=== PATIENT | female | born 1940 | race Caucasian/White ===

== ENCOUNTER 2017-03-15 17:54 | Inpatient (IN) ==
--- NOTE | 2017-03-15 18:36 | Emergency Department Note ---
START Narrative - START START: Patient was sent here with pleural effusions, dyspnea and I did order labs as well as a contrast CT of the chest to further evaluate for possibility of infection or mass. Care will be assumed by the physician who is relieving me in about 20 minutes 1000
[2017-03-15 18:52] LABS: Basophils # 0.1 K/mcL (0.0-0.2); Basophils % 0.4 %; Eosinophils # 0.2 K/mcL (0.0-0.6); Eosinophils % 1.3 %; Hemoglobin 11.8 g/dL (11.5-15.4); Immature Granulocytes % 0.8 % (0-4); Lymphocytes # 3.1 K/mcL (0.6-4.6); Lymphocytes % 20.8 %; Mean Corpuscular HGB Conc 30.3 g/dL (31.6-35.5); Mean Corpuscular Hemoglobin 26.8 pg (28.0-33.3); Mean Corpuscular Volume 88.6 fL (83.0-100.0); Mean Platelet Volume 9.2 fL (9.4-12.4); Monocytes # 1.4 K/mcL (0.0-1.3); Neutrophils # 10.3 K/mcL (1.6-8.9); Platelet Count 258 K/mcL (140-400); Red Cell Distribution Width 15.9 % (11.5-14.5); Segmented Neutrophils % 67.7 %
[2017-03-15 19:10] LABS: BUN/Creatinine Ratio 16 (6-26); Blood Urea Nitrogen 12 mg/dL (7-20); Calcium 9.8 mg/dL (8.6-10.8); Carbon Dioxide 30 mEq/L (19-29); Chloride 100 mEq/L (98-109); Glucose 92 mg/dL (70-99); Osmolality,Calculated 283 (280-300); Potassium 4.3 mEq/L (3.5-4.5); Sodium 137 mEq/L (136-145); eGFR For African Americans > 60 (> 60); eGFR For Non-African Americans > 60 (> 60)
--- NOTE | 2017-03-15 19:27 | Emergency Department Note ---
Disposition Clinical Impression: Tobacco use, Pleural effusion Dyspnea Qualifiers: Dyspnea type: unspecified Qualified Code(s): R06.00 - Dyspnea, unspecified Disposition: Admitted As Inpatient Condition: Fair Time of Disposition: 21:50 General Adult HPI - General Chief complaint: ED Shortness of Breath/Dyspnea Stated complaint: fluid on my lungs Time Seen by Provider: 03/15/17 18:33 Source: patient Mode of arrival: ambulatory Limitations: no limitations Nursing Notes Reviewed: Yes Vital Signs Reviewed: Yes - History of Present Illness HPI Narrative: 77 year old female history of hypertension, diabetes, tobacco use in the past presents for evaluation of abnormal chest x-ray. Patient had outpatient chest x -ray which showed a left-sided pleural effusion. Patient was told to come to the ER for further evaluation. Patient's symptoms which prompted the x-ray was shortness of breath for the past 2-3 weeks. With a nonproductive cough. No fevers. No chest pain. Patient states that she was recently diagnosed with [place] spotted fever within the last month and completed 20 days worth of doxycycline. Patient was not able to accurately describe how she was diagnosed or what symptoms she was having. Patient denies having a history of heart attacks. Does report it remote history of smoking and quit smoking in 2008. Patient is not oxygen dependent at home. However the patient is requiring some oxygen supplementation in the emergency department. Patient denies history of lung cancer. Denies any nausea or vomiting. Denies any abdominal pain. Denies history of congestive heart failure however the patient does state that she takes Lasix. Pain Scale: 0 - Related Data Home Medications Medication Instructions Recorded Confirmed Allopurinol [Zyloprim] 300 mg PO BID 03/15/17 03/15/17 Aspirin Enteric Coated [Aspirin EC] 81 mg PO DAILY 03/15/17 03/15/17 Cod Liver Oil 1 each PO DAILY 03/15/17 03/15/17 Furosemide [Lasix] 20 mg PO DAILY 03/15/17 03/15/17 Gabapentin [Neurontin] 600 mg PO TID 03/15/17 03/15/17 Garlic 1,000 mg PO DAILY 03/15/17 03/15/17 L. Acidophilus/Pectin, [place] 1 each PO BID 03/15/17 03/15/17 [Acidophilus Probiotic Capsule] Levothyroxine [Synthroid] 88 mcg PO 0630 03/15/17 03/15/17 Lisinopril [Zestril] 10 mg PO DAILY 03/15/17 03/15/17 Meloxicam [Mobic] 15 mg PO DAILY 03/15/17 03/15/17 Montelukast [Singulair] 10 mg PO DAILY 03/15/17 03/15/17 Tizanidine HCl 4 mg PO BID PRN 03/15/17 03/15/17 Allergies Allergy/AdvReac Type Severity Reaction Status Date / Time metformin Allergy Hives Verified 03/15/17 18:02 Penicillins [PCN] Allergy Anaphylaxis Verified 03/15/17 18:02 All systems ED: reviewed and negative except as stated. Constitutional: Reports: as per HPI. Denies: fever Eyes: Reports: as per HPI ENT ED: Reports: as per HPI Cardiovascular: Reports: as per HPI. Denies: chest pain Respiratory: Reports: as per HPI, cough, dyspnea. Denies: sputum production Gastrointestinal: Reports: as per HPI. Denies: abdominal pain, nausea, vomiting Genitourinary: Reports: as per HPI Musculoskeletal: Reports: as per HPI Integumentary: Reports: as per HPI Neurological: Reports: as per HPI Psychiatric: Reports: as per HPI Endocrine: Reports: as per HPI Hematological/Lymphatic: Reports: as per HPI Allergic/Immunologic: Reports: as per HPI Past Medical History - Past Medical History Medical history: Reports: diabetes, hypertension Psychiatric history: Reports: no psych history - Social History Smoking Status: Former smoker Alcohol use: Reports: none Drug use: Reports: none Physical Exam - General Limitations: no limitations General appearance: alert, in no apparent distress - Head Head exam: atraumatic, normal inspection - Eye Eye exam: Present: normal appearance, EOMI - ENT ENT exam: normal exam, mucous membranes moist - Neck Neck exam: Present: normal inspection, full ROM, trachea midline - Chest Chest inspection: Present: normal inspection, symmetric chest wall rise - Respiratory Respiratory exam: Present: other (Decreased left-sided lung sounds). Absent: respiratory distress - Cardiovascular Cardiovascular exam: Present: regular rate, normal rhythm, normal heart sounds - Abdominal Exam Abdominal exam: Present: soft, Non-Tender. Absent: tenderness, distention, guarding, rebound, rigidity - Extremities Exam Extremities exam: Present: normal inspection. Absent: pedal edema - Back Exam Back exam: Present: normal inspection. Absent: CVA tenderness (R), CVA tenderness (L) - Neurological Exam Neurological exam: Present: alert, oriented X3 - Skin Skin exam: Present: warm, dry, intact, normal color Course Course Narrative: Patient seen and examined. Patient workup was initiated by the primary provider. Patient had labs as well as EKG and I CT of the chest with contrast. Workup was discussed with the patient at bedside. Concerns of possible malignancy causing her effusion. This was discussed with her at bedside. - Reevaluation(s) Reevaluation #1: Patient seen and examined. Patient in no acute distress. Patient's resting comfortably. Updated plan of care. All questions were answered. Time: 21:49 Vital Signs Temperature 98.1 F 03/15/17 17:59 Pulse Rate 95 03/15/17 17:59 Respiratory Rate 16 03/15/17 17:59 Blood Pressure 148/69 03/15/17 17:59 O2 Sat by Pulse Oximetry 93 03/15/17 17:59 Temperature 98.1 F 03/15/17 17:59 Pulse Rate 93 03/15/17 20:51 Respiratory Rate 18 03/15/17 21:35 Blood Pressure 162/80 03/15/17 21:35 O2 Sat by Pulse Oximetry 91 03/15/17 20:51 Oxygen Delivery Oxygen Delivery Nasal Cannula Medical Decision Making - [facility] Narrative Medical decision making narrative: 77 yo female presents for evaluation after abnormal chest x-ray. Patient's symptoms were shortness of breath cough for the past 2-3 weeks. Patient had chest x-ray which showed new left-sided pleural effusion. Patient does not have oxygen at home and is requiring some oxygen supplementation in the emergency department. Patient has a history of tobacco use in the past. Patient does not have history of lung cancer. Patient will EKG as well as laboratory evaluation reviewed. Patient's EKG shows no acute changes. Negative troponin. Patient's BNP is also negative. Patient will likely need an echo as well as thoracentesis possible pulmonary consult for bronchoscopy. Explains the concerns of possible lung malignancy. Patient is reviewed does show she has not had any recent echo or evaluation. Patient is agreeable with hospitalization inpatient evaluation. Patient does have leukocytosis but antibiotics were not started as there is more concerns for possible mucous plug or possible endobronchial lesion and the patient also recently completed a 20 day course of doxycycline. - Lab Data Lab results reviewed: Yes I reviewed the patient's lab results. Result diagrams: 03/15/17 18:43 03/15/17 18:43 Lab Results 03/15/17 03/15/17 03/15/17 Range/Units 18:43 18:43 18:43 WBC 15.1 H (4.3-11.1) K/mcL RBC 4.40 (3.82-4.97) M/mcL Hgb 11.8 (11.5-15.4) g/dL Hct 39.0 (35.3-44.9) % MCV 88.6 (83.0-100.0) fL MCH 26.8 L (28.0-33.3) pg MCHC 30.3 L (31.6-35.5) g/dL RDW 15.9 H (11.5-14.5) % Plt Count 258 (140-400) K/mcL MPV 9.2 L (9.4-12.4) fL Immature Gran % 0.8 (0-4) % Seg Neutrophils % 67.7 % Lymphocytes % 20.8 % Monocytes % 9.0 % Eosinophils % 1.3 % Basophils % 0.4 % Neutrophils # 10.3 H (1.6-8.9) K/mcL Lymphocytes # 3.1 (0.6-4.6) K/mcL Monocytes # 1.4 H (0.0-1.3) K/mcL Eosinophils # 0.2 (0.0-0.6) K/mcL Basophils # 0.1 (0.0-0.2) K/mcL Sodium 137 (136-145) mEq/L Potassium 4.3 (3.5-4.5) mEq/L Chloride 100 (98-109) mEq/L Carbon Dioxide 30 H (19-29) mEq/L BUN 12 (7-20) mg/dL Creatinine 0.76 (0.57-1.11) mg/dL Est GFR ( Amer) > 60 (> 60) Est GFR (Non-Af Amer) > 60 (> 60) BUN/Creatinine Ratio 16 (6-26) Glucose 92 (70-99) mg/dL Calculated Osmolality 283 (280-300) Lactic Acid 1.0 (0.5-2.2) mmol/L Calcium 9.8 (8.6-10.8) mg/dL Troponin I (0-0.03) ng/mL B-Natriuretic Peptide (0-100) pg/mL 03/15/17 03/15/17 Range/Units 18:43 18:43 WBC (4.3-11.1) K/mcL RBC (3.82-4.97) M/mcL Hgb (11.5-15.4) g/dL Hct (35.3-44.9) % MCV (83.0-100.0) fL MCH (28.0-33.3) pg MCHC (31.6-35.5) g/dL RDW (11.5-14.5) % Plt Count (140-400) K/mcL MPV (9.4-12.4) fL Immature Gran % (0-4) % Seg Neutrophils % % Lymphocytes % % Monocytes % % Eosinophils % % Basophils % % Neutrophils # (1.6-8.9) K/mcL Lymphocytes # (0.6-4.6) K/mcL Monocytes # (0.0-1.3) K/mcL Eosinophils # (0.0-0.6) K/mcL Basophils # (0.0-0.2) K/mcL Sodium (136-145) mEq/L Potassium (3.5-4.5) mEq/L Chloride (98-109) mEq/L Carbon Dioxide (19-29) mEq/L BUN (7-20) mg/dL Creatinine (0.57-1.11) mg/dL Est GFR ( Amer) (> 60) Est GFR (Non-Af Amer) (> 60) BUN/Creatinine Ratio (6-26) Glucose (70-99) mg/dL Calculated Osmolality (280-300) Lactic Acid (0.5-2.2) mmol/L Calcium (8.6-10.8) mg/dL Troponin I 0.00 (0-0.03) ng/mL B-Natriuretic Peptide 41 (0-100) pg/mL - Radiology Data Radiology results reviewed: Yes I reviewed the patient's radiology results. Chest CT 03/15/17 18:34 IMPRESSION: 1. An abrupt cut off of the left upper lobe bronchus with soft tissue attenuation, which may be secondary to mucous plugging or a bronchial mass. 2. Large loculated left pleural effusion with near complete consolidation of the left upper lobe which demonstrates multiple foci of internal low attenuation, including a 4.7 x 4.1 cm internal focus of rounded low attenuation, possibly a pulmonary abscess. The left upper lobe consolidation could represent pneumonia or possibly pulmonary malignancy. 3. Partial consolidation of the left lower lobe, most likely passive atelectasis, though underlying pneumonia or aspiration are also diagnostic considerations. 4. Mild subcarinal lymphadenopathy. RECOMMENDATIONS: Given the constellation of findings, suggest formal pulmonary consultation, and consider bronchoscopy and biopsy to further evaluate the left upper lobe opacity, and to exclude an underlying obstructing mass and/or pulmonary malignancy. D/ / 03/15/2017 20:05:26 Basilio Nicholas MD / efe Interpreting Provider: Basilio Nicholas MD - EKG Data EKG #1 EKG attestation: Yes I reviewed and interpreted this EKG. EKG shows normal: sinus rhythm Rate: normal Rhythm: NSR Hammond/QRS: normal T wave inversions noted in: I, aVL, v5 (Flattened), v6 (flattened) Interpretation: no acute changes, nonspecific ST-T wave changes S.B.A.R. - S.B.A.R. Situation: Demographics Background: Presenting Complaint Assessment: Vital Signs, Course and respsone to treatment Recommendation: Recommendation based on pending studies, treatments, or consults S.B.A.R. Report Given to: Dr. Stafford [email or web address] Repor Time: 21:04 Attestation Statement - Attestation Attestation: I, Timbo Melendrez MD, personally evaluated this patient and discussed their management with the resident physician. I reviewed the resident's note and agree with the documented findings, medical decision making, and plan of care. 77-year-old female presents with a complaint of some increasing shortness of breath for the past 2-3 weeks or longer. She has seen her primary care doctor a few times for this. She was seen yesterday and had a chest x-ray ordered. She had the x-ray done today which showed a large left pleural effusion. She was advised to come here for evaluation and admission. She was a smoker in the past but stopped about 8 years ago. She denies any history of COPD or asthma. No chest pain. She states that over the past several weeks she has noticed she feels a little more short of breath and usually when she takes a deep breath it makes her cough. On examination patient is a well-developed obese elderly female in no acute distress. She is alert and oriented 3. There is no cyanosis or diaphoresis. Chest is nontender to palpation. Breath sounds are slightly decreased on the left with some left anterior upper lobe rales. No wheezes noted. Heart regular rate and rhythm. Abdomen soft and nontender with normal bowel sounds. Labs reviewed. CT of the chest obtained. The hospitalist, Dr. Stafford, was consulted and accepted admission of the patient.
--- NOTE | 2017-03-15 23:15 | Internal Med History&Physical ---
Date of Encounter: 03/16/17 Time of Encounter: 23:00 Assessment and Plan (1) Loculated pleural effusion Current visit: Yes Status: Acute Shortness of breath - secondary to : Large loculated left pleural effusion with near complete consolidation of left upper lobe with possible pulmonary abscess, with probable mucous plugging or endobronchial mass in the left upper lobe. Partial consolidation of left lower lobe most likely passive atelectasis (seen on CT Chest w/ contrast) Continue empiric IV Levaquin, IV vancomycin - patient is allergic to penicillin O2 via nasal cannula, DuoNeb breathing treatment, IV Lasix, Tylenol PRN Sputum cultures - pending Pulmonology consult - pending Patient will need a bronchoscopy Echocardiogram - pending Troponin - negative BN peptide - 41 EKG - normal sinus rhythm with no acute ST-T changes Chest x-ray - large left-sided pleural effusion with vascular congestion Strict I's and O's, daily weight Continuous pulse ox, cardiac telemetry Labs in a.m. 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 Thomas is a 77 year old female with PMH of HTN, DM and hypothyroidism. Patient presents to the ED with complaints of shortness of breath. On examination patient is awake and alert. Not in any distress. Able to provide history. No family members at bedside. She states her shortness of breath started about 2-3 weeks ago. Symptoms have gradually worsened. She states she was diagnosed with [place] spotted fever about 1 month ago and has been on doxycycline for almost 20 days, and she finished her course yesterday. Patient does not have any history of coronary artery disease. No history of CHF. Patient states she also has associated cough which is nonproductive. No aggravating or alleviating factors. Symptoms are mild to moderate. No other associated symptoms. Denies chest pain, denies palpitations , denies headache or dizziness. Denies fever or abdominal pain or vomiting or diarrhea. No history of COPD or asthma and she is not oxygen dependent at home. Patient followed up with her primary care physician yesterday for a routine visit. Chest x-ray and labs were done. She was advised by her primary care physician to go to the ED in view of left-sided pleural effusion. Initial evaluation today in the ED revealed elevated white count. CT of the chest with contrast reveals a large loculated left pleural effusion with complete consolidation of the left upper lobe with a possible pulmonary abscess. Consolidation could represent pneumonia or possible pulmonary malignancy. There is also a partial consolidation of left lower lobe likely passive atelectasis. There is probably a mucous plug or bronchial mass and left upper lobe. Patient is being admitted for shortness of breath due to loculated pleural effusion. Pulmonology consult is pending. Patient will be continued on home medications. She has been explained about her condition and plan of care. Understood and agreed. No unanswered questions. CODE STATUS full code. Past Med Surg Social Fam HX - Past Medical History Medical history: diabetes, hypertension Psychiatric history: no psych history - Past Surgical History Surgical History: cholecystectomy, hysterectomy - Social History Smoking Status: Former smoker Smokeless Tobacco Status: No Alcohol use: none Drug use: marijuana - Family History Mother Living Status: Hx Family Cancer: Yes (Breast cancer) Father Living Status: Hx Family Cardiac Disorders: Yes Hx Family Cancer: Yes (Prostate cancer) Brother Living Status: Still Living Hx Family Cancer: Yes (skin, bone) Internal Medicine - H&P: Meds Allopurinol [Zyloprim] 300 mg PO BID 03/15/17 [History] Aspirin Enteric Coated [Aspirin EC] 81 mg PO DAILY 03/15/17 [History] Cod Liver Oil 1 each PO DAILY 03/15/17 [History] Furosemide [Lasix] 20 mg PO DAILY 03/15/17 [History] Gabapentin [Neurontin] 600 mg PO TID 03/15/17 [History] Garlic 1,000 mg PO DAILY 03/15/17 [History] L. Acidophilus/Pectin, [place] [Acidophilus Probiotic Capsule] 1 each PO BID [History] Levothyroxine [Synthroid] 88 mcg PO 0630 03/15/17 [History] Lisinopril [Zestril] 10 mg PO DAILY 03/15/17 [History] Meloxicam [Mobic] 15 mg PO DAILY 03/15/17 [History] Montelukast [Singulair] 10 mg PO DAILY 03/15/17 [History] Tizanidine HCl 4 mg PO BID PRN 03/15/17 [History] Allergies metformin Allergy (Verified 03/15/17 18:02) Hives Penicillins [PCN] Allergy (Verified 03/15/17 18:02) Anaphylaxis All Systems PM: A 10-system review of systems was performed and is negative for pertinent findings except as documented above in the HPI. - Constitutional Constitutional: fatigue, weakness, no fever(s) - EENT Eyes: no blurry vision - Cardiovascular Cardiovascular ROS IM: dyspnea, dyspnea on exertion, edema, orthopnea, no chest pain, no lightheadedness, no syncope - Respiratory Respiratory: cough, dyspnea, dyspnea on exertion, chest congestion, no wheezing - Gastrointestinal Gastrointestinal: no abdominal pain, no bloating, no diarrhea, no hematochezia, no melena, no nausea, no vomiting - Genitourinary Genitourinary: no dysuria - Neurological Neurological ROS: no abnormal gait, no abnormal speech, no dizziness, no focal weakness, no numbness, no tingling - Constitutional Vitals: Temp Pulse Resp BP Pulse Ox 98.2 F 101 18 119/73 92 03/15/17 22:20 03/15/17 22:20 03/15/17 22:20 03/15/17 22:20 03/15/17 22:20 General appearance: Present: A&O X 3, morbidly obese, pleasant, no acute distress, answers questions appropriately - Head Head exam: Present: atraumatic - Eye Eye exam: Present: EOMI - Neck Neck exam general surgery: Present: supple - Respiratory Respiratory exam: Present: accessory muscle use, decreased breath sounds ( decreased breath sounds on the left side), rales (mild on the right side). Absent: rhonchi, stridor, tachypnea - Cardiovascular Cardiovascular exam: Present: RRR, +S1, +S2, systolic murmur - GI/Abdominal GI/Abdominal exam: Present: soft, no peritoneal signs. Absent: distended, firm , guarding, rigid, tenderness - Extremities Exam Extremities exam: Present: radial pulses palpable and symetrical. Absent: cyanotic, pedal edema, tenderness - Neurological Exam Neurological exam: Present: alert, oriented X3, no focal deficits. Absent: facial droop, speech deficit Internal Med - H&P Results - Labs CBC & Chem 7: 03/15/17 18:43 03/15/17 18:43
[2017-03-15] MEDS ORDERED: Ondansetron 4 MG/2 ML VIAL IVP PRN (23:23)
[2017-03-15] MEDS ORDERED: *HR* Morphine 2 MG/ML SYRINGE IVP PRN (23:23)
[2017-03-15] MEDS ORDERED: Acetaminophen 325 MG TABLET PO PRN (23:23)
[2017-03-15] MEDS ORDERED: Naloxone 0.4 MG/ML INJ IVP PRN (23:23)
[2017-03-15] MEDS ORDERED: Dextrose Gel 15 GM PO PRN ×2 (23:53)
[2017-03-15] MEDS ORDERED: *HR* Dextrose 50 % in Water (Syg) 50 ML SYRINGE IVP PRN (23:53)
[2017-03-15] MEDS ORDERED: D5% in Water 1,000 ML IVC PRN (23:53)
[2017-03-16] MEDS: Levofloxacin 750 MG/150 ML 750 MG/150 ML BAG IVPB SCH ×2 (01:31→12:36)
[2017-03-16] MEDS ORDERED: Vancomycin 1,250 MG in D5% in Water 250 ML IVPB SCH (04:00)
[2017-03-16] MEDS: Ipratropium/Albuterol Neb 3 ML IH SCH ×4 (04:04→23:09)
[2017-03-16 04:41] LABS: Basophils # 0.1 K/mcL (0.0-0.2); Basophils % 0.4 %; Eosinophils # 0.2 K/mcL (0.0-0.6); Eosinophils % 0.9 %; Hematocrit 37.5 % (35.3-44.9); Hemoglobin 11.6 g/dL (11.5-15.4); Immature Granulocytes % 0.6 % (0-4); Lymphocytes # 2.6 K/mcL (0.6-4.6); Lymphocytes % 14.6 %; Mean Corpuscular HGB Conc 30.9 g/dL (31.6-35.5); Mean Corpuscular Hemoglobin 27.5 pg (28.0-33.3); Mean Corpuscular Volume 88.9 fL (83.0-100.0); Mean Platelet Volume 9.9 fL (9.4-12.4); Monocytes # 1.5 K/mcL (0.0-1.3); Monocytes % 8.3 %; Neutrophils # 13.2 K/mcL (1.6-8.9); Platelet Count 238 K/mcL (140-400); Red Blood Count 4.22 M/mcL (3.82-4.97); Segmented Neutrophils % 75.2 %
[2017-03-16] MEDS ORDERED: Vancomycin 2,000 MG in D5% in Water 500 ML IVPB SCH (05:00)
[2017-03-16 05:02] LABS: Alanine Aminotransferase 10 Units/L (0-55); Albumin 2.5 g/dL (3.5-5.0); Albumin/Globulin Ratio 0.5 (1.1-2.2); Alkaline Phosphatase 102 Units/L (38-126); Aspartate Amino Transferase 13 Units/L (5-34); BUN/Creatinine Ratio 15 (6-26); Bilirubin,Total 0.5 mg/dL (0.2-1.2); Blood Urea Nitrogen 11 mg/dL (7-20); Calcium 9.7 mg/dL (8.6-10.8); Carbon Dioxide 31 mEq/L (19-29); Chloride 100 mEq/L (98-109); Globulin 4.7 g/dL (2.4-3.5); Glucose 97 mg/dL (70-99); Osmolality,Calculated 285 (280-300); Potassium 4.4 mEq/L (3.5-4.5); Sodium 138 mEq/L (136-145); Total Protein 7.2 g/dL (6.0-8.3); eGFR For African Americans > 60 (> 60); eGFR For Non-African Americans > 60 (> 60)
[2017-03-16 05:11] LABS: INR 1.3; Prothrombin Time 14.6 Seconds (9.4-12.1)
[2017-03-16] MEDS: *HR* Heparin 5,000 UNIT/ML VIAL SQ SCH ×2 (05:59→17:47)
[2017-03-16] MEDS ORDERED: Famotidine 20 MG/2 ML VIAL IVP SCH (06:00)
[2017-03-16 07:04] LABS: Bilirubin,Urine Negative (Negative); Blood,Urine Negative (Negative); Clarity,Urine Clear (Clear); Color,Urine Dark Yellow (Yellow); Glucose,Urine (UA) Normal (Normal); Ketones,Urine Negative (Negative); Leukocyte Esterase,Urine Negative (Negative); Nitrite,Urine Negative (Negative); PH,Urine 6.5 pH Units (5.0-8.0); Protein,Urine Negative (Neg-Trace); Specific Gravity,Urine > 1.030 (1.010-1.025); Urobilinogen,Urine Normal (Normal)
[2017-03-16] MEDS: Insulin LISPRO 300 UNITS/3 ML VIAL SQ SCH ×3 (07:35→17:47)
--- NOTE | 2017-03-16 08:05 | Pulmonology Consult Note ---
Date of Encounter: 03/16/17 Time of Encounter: 08:02 Assessment and Plan (1) Abnormal chest CT Current Visit: Yes Status: Acute The chest CT scan reveals a moderate to large left pleural effusion with the configuration suggesting loculation. Furthermore, there is a suggestion that the parenchyma may have an evolving necrotic area within it possibly related to abscess formation. There is also possible volume loss with endobronchial obstruction. 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 I reviewed the situation with the patient. I have recommended placement of smallbore chest tube by IR, evaluation of the pleural effusion characterization , determination of cultures and continuation of antibiotic therapy (de-escalate if/when specific pathogen identified). More than likely, the patient will also require airway inspection via bronchoscopy given concern for possible proximal endobronchial obstruction (particularly in light of the patient's extensive smoking history). In the meantime, continue empiric antibiotic therapy pending results of microbiological analysis. I reviewed my impressions and recommendations and management suggestions with the patient and she wishes to proceed as outlined. Code(s): R93.8 - Abnormal findings on diagnostic imaging of other specified body structures SNOMED Code(s): 320729011 History of Present Illness Consult date: 03/16/17 Chief complaint: Cough and abnormal chest x-ray History of present illness: This obese female former cigarette smoker of approximately 14-lueo-ehzl intensity (stopped 2008) was admitted to the hospital with complaints of cough mild chest congestion mild breathlessness. Evaluation included imaging studies of the chest which were abnormal (chest x-ray as well as CT scan of the chest) hence pulmonary consultation requested. The patient is a somewhat difficult historian nonetheless, she claims that she was undergoing an evaluation by her primary care physician over the past 6 weeks for questionable fever, chills and cough. Mrs. Thomas was told that she had [place] spotted fever based on a blood determination (however she denied high-grade fever nor rash of any variety), received at least 1 or 2 courses of antibiotic directed towards treatment of the same. In spite of this treatment, cough questionable low-grade fevers persisted. The patient was recently hospitalized at [facility] for back hip pain. Imaging studies were directed towards the axial skeleton and pelvic region, no chest films were obtained however films at that time did suggest a left pleural effusion which was noted in one of the imaging studies of the abdomen. Past Med Surg Social Fam HX - Past Medical History Medical history: diabetes, hypertension Psychiatric history: no psych history - Past Surgical History Surgical History: cholecystectomy, hysterectomy - Social History Smoking Status: Former smoker Smokeless Tobacco Status: No Alcohol use: none Drug use: marijuana - Family History Mother Living Status: Hx Family Cancer: Yes (Breast cancer) Father Living Status: Hx Family Cardiac Disorders: Yes Hx Family Cancer: Yes (Prostate cancer) Brother Living Status: Still Living Hx Family Cancer: Yes (skin, bone) Medications and Allergies Allopurinol [Zyloprim] 300 mg PO BID 03/15/17 [History] Aspirin Enteric Coated [Aspirin EC] 81 mg PO DAILY 03/15/17 [History] Cod Liver Oil 1 each PO DAILY 03/15/17 [History] Furosemide [Lasix] 20 mg PO DAILY 03/15/17 [History] Gabapentin [Neurontin] 600 mg PO TID 03/15/17 [History] Garlic 1,000 mg PO DAILY 03/15/17 [History] L. Acidophilus/Pectin, [place] [Acidophilus Probiotic Capsule] 1 each PO BID [History] Levothyroxine [Synthroid] 88 mcg PO 0630 03/15/17 [History] Lisinopril [Zestril] 10 mg PO DAILY 03/15/17 [History] Meloxicam [Mobic] 15 mg PO DAILY 03/15/17 [History] Montelukast [Singulair] 10 mg PO DAILY 03/15/17 [History] Tizanidine HCl 4 mg PO BID PRN 03/15/17 [History] Allergies metformin Allergy (Verified 03/15/17 18:02) Hives Penicillins [PCN] Allergy (Verified 03/15/17 18:02) Anaphylaxis All Systems: A 10-system review of systems was performed and is negative for pertinent findings except as documented above in the HPI. - Constitutional Constitutional: as per HPI - Respiratory Respiratory: as per HPI Physical Examination Vital Signs: Vital Signs, Last 4 Hours Temp Pulse Resp BP Pulse Ox 03/16/17 04:30 99.4 F 98 16 119/72 93 03/16/17 04:09 15 96 General appearance: no acute distress, other (Obese female awake and alert no distress vitals.) Eyes: nonicteric ENT: oropharynx moist Mallampati (class): 3 Neck: no lymphadenopathy Auscultation: left: diminished breath sounds Cardiovascular: regular rate and rhythm Gastrointestinal: normoactive bowel sounds, non-distended, other (Central obesity) Integumentary: normal Extremities: no cyanosis Musculoskeletal: no deformities normal mental status, non-focal exam mood appropriate Results - Laboratory Findings CBC and BMP: 03/16/17 04:30 03/16/17 04:30 PT/INR, D-dimer PT 14.6 Seconds (9.4-12.1) H 03/16/17 04:30 Abnormal lab findings: Abnormal lab results WBC 17.5 K/mcL (4.3-11.1) H 03/16/17 04:30 MCH 27.5 pg (28.0-33.3) L 03/16/17 04:30 MCHC 30.9 g/dL (31.6-35.5) L 03/16/17 04:30 RDW 16.0 % (11.5-14.5) H 03/16/17 04:30 Neutrophils # 13.2 K/mcL (1.6-8.9) H 03/16/17 04:30 Monocytes # 1.5 K/mcL (0.0-1.3) H 03/16/17 04:30 PT 14.6 Seconds (9.4-12.1) H 03/16/17 04:30 Carbon Dioxide 31 mEq/L (19-29) H 03/16/17 04:30 POC Glucose 92 (58-89) H 03/15/17 23:44 Albumin 2.5 g/dL (3.5-5.0) L 03/16/17 04:30 Globulin 4.7 g/dL (2.4-3.5) H 03/16/17 04:30 Albumin/Globulin Ratio 0.5 (1.1-2.2) L 03/16/17 04:30 Ur Specific [place] > 1.030 (1.010-1.025) H 03/16/17 06:00 - Clinical Findings Intake & Output: Intake & Output 03/15/17 03/16/17 03/16/17 23:59 07:59 15:59 Intake Total 0 / 0 Balance 0 / 0 Weight 102.8 kg 102.7 kg Consult Discharge Plan - Plan Referrals: Purvi Rey [Primary Care Provider] -
[2017-03-16] MEDS ORDERED: Furosemide 40 MG/4 ML VIAL IVP SCH (09:00)
[2017-03-16] MEDS ORDERED: COD LIVER OIL PO SCH (09:00)
--- NOTE | 2017-03-16 09:34 | Electrocardiograph Report ---
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
--- NOTE | 2017-03-16 09:54 | IR Procedure Note ---
Date of procedure: 03/16/17 Consent Obtained: Verbal consent Timeout: Correct patient and procedure verified, Correct site verified, Time out performed, Skin prep completed Indications: left effusion Procedure Performed: left chest tube Site/Technique: 10F chest tube left Results/Findings: adequate placement Estimated blood loss (cc): 2 Complications: None; Tolerated procedure well Post Procedure Treatment Plan: CXR
--- NOTE | 2017-03-16 12:04 | Internal Med Progress Note ---
Date of Encounter: 03/16/17 Time of Encounter: 12:02 - Assessment and plan (1) Acute respiratory failure Current Visit: Yes Status: Acute Assessment and plan: Secondary to loculated pleural effusion Pulmonary evaluation appreciated s/p left chest tube placement by IR (03/16/17) will follow up pleural fluid cytology and cultures continue empiric abx therapy at this time O2 supplementation as needed closely monitor O2 sat goal O2 sat>90% Qualifiers: Respiratory failure complication: unspecified whether with hypoxia or hypercapnia Qualified Code(s): J96.00 - Acute respiratory failure, unspecified whether with hypoxia or hypercapnia (2) Loculated pleural effusion Current Visit: Yes Status: Acute Assessment and plan: as listed above (3) Essential hypertension Current Visit: Yes Status: Chronic Assessment and plan: BP within acceptable range continue home medications (4) Type 2 diabetes mellitus Current Visit: Yes Status: Chronic Assessment and plan: BG within acceptable range will continue insulin therapy ss insulin as needed monitor FS and BG Qualifiers: Diabetes mellitus complication status: without complication Diabetes mellitus clinical sciences professor insulin use: without clinical sciences professor use Qualified Code(s): E11.9 - Type 2 diabetes mellitus without complications (5) Hypothyroidism Current Visit: Yes Status: Chronic Assessment and plan: continue Levothyroxine Qualifiers: Hypothyroidism type: unspecified Qualified Code(s): E03.9 - Hypothyroidism , unspecified (6) DVT prophylaxis Current Visit: Yes Status: Acute Assessment and plan: Heparin SQ - Subjective Interval history: Patient seen and examined at bedside. Resting in bed and reports of feeling weak but better compared to previous day. Currently s/p left chest tube placement by IR (03/16/17). Denies any pain or SOB at this time. Currently saturating well on nasal cannula but reports of not being on any home oxygen. - Constitutional Vitals: Temp Pulse Resp BP Pulse Ox 99.2 F 88 20 123/57 93 03/16/17 08:18 03/16/17 08:18 03/16/17 08:18 03/16/17 08:18 03/16/17 08:18 General appearance: Present: A&O X 3, morbidly obese, pleasant, no acute distress, answers questions appropriately - Head Head exam: Present: atraumatic, normocephalic - Eye Eye exam: Present: conjuntiva pink, sclera anicteric - Respiratory Respiratory exam: Absent: respiratory distress, wheezes (bibasilar crackles, left chest tube in place) - Cardiovascular Cardiovascular exam: Present: RRR, +S1, +S2. Absent: diastolic murmur, gallop, rubs, systolic murmur - GI/Abdominal GI/Abdominal exam: Present: distended (Obese), normal bowel sounds, soft, no peritoneal signs. Absent: tenderness - Extremities Exam Extremities exam: Present: warm, radial pulses palpable and symetrical. Absent : calf tenderness, cyanotic, pedal edema - Neurological Exam Neurological exam: Present: alert, oriented X3 Internal Medicine: Result - Labs CBC & Chem 7: 03/16/17 04:30 03/16/17 04:30 Labs: Short CBC 03/16/17 Range/Units 04:30 WBC 17.5 H (4.3-11.1) K/mcL Hgb 11.6 (11.5-15.4) g/dL Hct 37.5 (35.3-44.9) % Plt Count 238 (140-400) K/mcL Neutrophils # 13.2 H (1.6-8.9) K/mcL BMP 03/16/17 04:30 Sodium 138 Potassium 4.4 Chloride 100 Carbon Dioxide 31 H BUN 11 Creatinine 0.73 Glucose 97 Calcium 9.7 Liver Function 03/16/17 Range/Units 04:30 Total Bilirubin 0.5 (0.2-1.2) mg/dL AST 13 (5-34) Units/L ALT 10 (0-55) Units/L Alkaline Phosphatase 102 (38-126) Units/L Albumin 2.5 L (3.5-5.0) g/dL Urine 03/16/17 Range/Units 06:00 Urine Color Dark Yellow (Yellow) Urine Clarity Clear (Clear) Urine pH 6.5 (5.0-8.0) pH Units Ur Specific [place] > 1.030 H (1.010-1.025) Urine Protein Negative (Neg-Trace) mg/dL Urine Glucose (UA) Normal (Normal) mg/dL - ABG Interpretation ABG results: PT/INR, D-dimer PT 14.6 Seconds (9.4-12.1) H 03/16/17 04:30 - Impressions Impressions Thoracentesis 03/16/17 00:00 IMPRESSION: Successful ultrasound guided placement of a left chest tube D/ / Tereza Sawant MD / Tereza Sawant MD Interpreting Provider: Tereza Sawant MD Chest X-Ray 03/16/17 09:48 IMPRESSION: New left-sided chest tube in the lung base with decreased fluid in the lung base. Persistent density in the left lung apex which could represent fluid, mass, or volume loss. RECOMMENDATION: Follow up to resolution is suggested. D/ / 03/16/2017 10:30:50 Rolanda Garcia MD / [facility] Interpreting Provider: Rolanda Garcia MD Consult Discharge Plan - Plan Referrals: Purvi Rey [Primary Care Provider] -
[2017-03-16] MEDS: Lactobacillus 1 EACH CAP.SPRINK PO SCH ×2 (12:40→20:51)
[2017-03-16] MEDS: Gabapentin 300 MG CAPSULE PO SCH ×3 (12:40→20:51)
[2017-03-16] MEDS: Aspirin Enteric Coated 81 MG Tablet PO SCH (12:40)
[2017-03-16] MEDS: Furosemide 40 MG/4 ML VIAL IVP SCH (16:01)
[2017-03-16] MEDS: Vancomycin 1,500 MG in D5% in Water 250 ML IVPB SCH (16:01)
[2017-03-16] MEDS: Famotidine 20 MG/2 ML VIAL IVP SCH (20:54)
[2017-03-17] MEDS ORDERED: 0.9 % Sodium Chloride 500 ML IVC ONE (00:20)
[2017-03-17] MEDS ORDERED: 0.9 % Sodium Chloride 500 ML ONE (00:21)
[2017-03-17] MEDS: Ipratropium/Albuterol Neb 3 ML IH SCH ×4 (04:03→22:05)
[2017-03-17] MEDS: *HR* Heparin 5,000 UNIT/ML VIAL SQ SCH ×2 (05:06→17:20)
[2017-03-17 05:09] LABS: Basophils # 0.1 K/mcL (0.0-0.2); Basophils % 0.4 %; Eosinophils # 0.2 K/mcL (0.0-0.6); Eosinophils % 1.2 %; Hematocrit 39.6 % (35.3-44.9); Hemoglobin 12.2 g/dL (11.5-15.4); Immature Granulocytes % 0.7 % (0-4); Lymphocytes # 3.2 K/mcL (0.6-4.6); Mean Corpuscular HGB Conc 30.8 g/dL (31.6-35.5); Mean Corpuscular Hemoglobin 27.7 pg (28.0-33.3); Mean Platelet Volume 10.2 fL (9.4-12.4); Monocytes # 1.6 K/mcL (0.0-1.3); Monocytes % 9.1 %; Neutrophils # 12.6 K/mcL (1.6-8.9); Platelet Count 275 K/mcL (140-400); Red Cell Distribution Width 16.3 % (11.5-14.5); Segmented Neutrophils % 70.6 %
[2017-03-17 05:28] LABS: BUN/Creatinine Ratio 19 (6-26); Blood Urea Nitrogen 16 mg/dL (7-20); Calcium 9.9 mg/dL (8.6-10.8); Carbon Dioxide 33 mEq/L (19-29); Chloride 98 mEq/L (98-109); Glucose 124 mg/dL (70-99); Magnesium 1.9 mg/dL (1.6-2.6); Osmolality,Calculated 287 (280-300); Phosphorous 4.5 mg/dL (2.3-4.7); Potassium 4.1 mEq/L (3.5-4.5); Sodium 137 mEq/L (136-145); eGFR For African Americans > 60 (> 60); eGFR For Non-African Americans > 60 (> 60)
--- NOTE | 2017-03-17 08:50 | Pulmonology Progress Note ---
Date of Encounter: 03/17/17 Time of Encounter: 08:00 Assessment and Plan (1) Abnormal chest CT Current Visit: Yes Status: Acute Chest CT abnormality, as previously described. Given large seemingly loculated left pleural effusion possibly parapneumonic, small bore chest tube placed. Based upon my review the chart, it is uncertain if any of the fluid was sent for requested analysis hence these orders have been placed back into the chart and sees routine analysis, culture Gram stain and cytology). Continue current antibiotic therapy for presumptive parapneumonic effusion. Given the appearance of the CT scan, the patient may have an intraparenchymal abscess or alternatively, a malignant process hence the patient will morning likely require bronchoscopy next week. I will defer the need for bronchoscopy to the wood type finisher assuming care next week. Follow-up chest radiograph pending as well. Ultimately, if the effusion is parapneumonic and if it fails to resolve with chest tube placement alone then I recommend intrapleural lytic therapy. Management reviewed with the patient and nursing staff. Code(s): R93.8 - Abnormal findings on diagnostic imaging of other specified body structures SNOMED Code(s): 370750246 Subjective Principal diagnosis: Pleural effusion Interval history: Patient underwent smallbore chest tube placement . She notes a substantial overall improvement of her clinical respiratory status. No new events reported overnight. Comprehensive systems review unremarkable Objective PUL Vital signs: Last Vital Signs Temp 98.7 F 03/17/17 08:13 Pulse 106 03/17/17 08:13 Resp 17 03/17/17 08:13 BP 107/65 03/17/17 08:13 Pulse Ox 97 03/17/17 08:13 General appearance: no acute distress, other (Vitals reviewed) Eyes: nonicteric ENT: oropharynx moist Mallampati (class): 2 Neck: supple Auscultation: left: diminished breath sounds (Small bore left chest tube) Cardiovascular: regular rate and rhythm Gastrointestinal: normoactive bowel sounds, non-distended Extremities: no cyanosis, no clubbing Musculoskeletal: no deformities normal mental status, non-focal exam Results - Laboratory Findings CBC and BMP: 03/17/17 04:45 03/17/17 04:45 PT/INR, D-dimer PT 14.6 Seconds (9.4-12.1) H 03/16/17 04:30 Abnormal lab findings: Abnormal lab results WBC 17.8 K/mcL (4.3-11.1) H 03/17/17 04:45 MCH 27.7 pg (28.0-33.3) L 03/17/17 04:45 MCHC 30.8 g/dL (31.6-35.5) L 03/17/17 04:45 RDW 16.3 % (11.5-14.5) H 03/17/17 04:45 Neutrophils # 12.6 K/mcL (1.6-8.9) H 03/17/17 04:45 Monocytes # 1.6 K/mcL (0.0-1.3) H 03/17/17 04:45 PT 14.6 Seconds (9.4-12.1) H 03/16/17 04:30 Carbon Dioxide 33 mEq/L (19-29) H 03/17/17 04:45 Glucose 124 mg/dL (70-99) H 03/17/17 04:45 POC Glucose 208 (58-89) H 03/16/17 16:30 Albumin 2.5 g/dL (3.5-5.0) L 03/16/17 04:30 Globulin 4.7 g/dL (2.4-3.5) H 03/16/17 04:30 Albumin/Globulin Ratio 0.5 (1.1-2.2) L 03/16/17 04:30 Ur Specific [place] > 1.030 (1.010-1.025) H 03/16/17 06:00 - Clinical Findings Intake & Output: Intake & Output 03/16/17 03/17/17 03/17/17 23:59 07:59 15:59 Output Total 900 / 900 40 / 40 Balance -900 / -900 -40 / -40 Weight 101.7 kg Consult Discharge Plan - Plan Referrals: Purvi Rey [Primary Care Provider] -
[2017-03-17] MEDS: Lactobacillus 1 EACH CAP.SPRINK PO SCH ×2 (08:52→21:59)
[2017-03-17] MEDS: Famotidine 20 MG/2 ML VIAL IVP SCH ×2 (08:53→22:00)
[2017-03-17] MEDS: Aspirin Enteric Coated 81 MG Tablet PO SCH (08:53)
[2017-03-17] MEDS: Gabapentin 300 MG CAPSULE PO SCH ×3 (08:53→21:59)
[2017-03-17] MEDS: Levofloxacin 750 MG/150 ML 750 MG/150 ML BAG IVPB SCH (08:54)
[2017-03-17] MEDS: Furosemide 40 MG/4 ML VIAL IVP SCH ×2 (08:54→17:21)
[2017-03-17] MEDS: Insulin LISPRO 300 UNITS/3 ML VIAL SQ SCH ×3 (08:54→17:21)
[2017-03-17 11:10] LABS: RBC,Pleural Fluid 0.045 M/mcL
[2017-03-17 11:12] LABS: Glucose,Pleural Fluid 133 mg/dL (No Ref Range); LDH,Pleural Fluid 209 Units/L (No Ref Range)
[2017-03-17 11:15] LABS: Total Protein,Pleural Fluid 5.4 g/dL (No Ref Range)
[2017-03-17 12:25] LABS: Appearance of Pleural Fl Cloudy (Clear)
--- NOTE | 2017-03-17 13:27 | Internal Med Progress Note ---
Date of Encounter: 03/17/17 Time of Encounter: 13:24 - Assessment and plan (1) Acute respiratory failure Current Visit: Yes Status: Acute Assessment and plan: Secondary to loculated pleural effusion Pulmonary evaluation appreciated s/p left chest tube placement by IR (03/16/17) will follow up pleural fluid cytology and cultures continue empiric abx therapy at this time O2 supplementation as needed closely monitor O2 sat goal O2 sat>90% Qualifiers: Respiratory failure complication: unspecified whether with hypoxia or hypercapnia Qualified Code(s): J96.00 - Acute respiratory failure, unspecified whether with hypoxia or hypercapnia (2) Loculated pleural effusion Current Visit: Yes Status: Acute Assessment and plan: as listed above (3) Essential hypertension Current Visit: Yes Status: Chronic Assessment and plan: Noted to be hypotensive, clinically asymptomatic Will closely monitor BP and maintain MAP>65 hold Lisinopril at this time decreased lasix to 20mg IV BID with instructions to hold the dose if SBP<100 (4) Type 2 diabetes mellitus Current Visit: Yes Status: Chronic Assessment and plan: BG within acceptable range will continue insulin therapy ss insulin as needed monitor FS and BG Qualifiers: Diabetes mellitus complication status: without complication Diabetes mellitus fiber analyst insulin use: without fiber analyst use Qualified Code(s): E11.9 - Type 2 diabetes mellitus without complications (5) Hypothyroidism Current Visit: Yes Status: Chronic Assessment and plan: continue Levothyroxine Qualifiers: Hypothyroidism type: unspecified Qualified Code(s): E03.9 - Hypothyroidism , unspecified (6) DVT prophylaxis Current Visit: Yes Status: Acute Assessment and plan: Heparin SQ - Subjective Interval history: Patient seen and examined at bedside. Sitting in bed, eating lunch, reports of feeling better compared to previous day. Noted to be hypotensive overnight requiring IVF bolus to which her BP responded appropriately. Despite borderline BP this morning, patient received her morning dose of Lisinopril. Currently BP: 93/48 and clinically asymptomatic. Denies any discomfor at this time. - Constitutional Vitals: Temp Pulse Resp BP Pulse Ox 98.3 F 102 18 81/42 94 03/17/17 11:12 03/17/17 11:12 03/17/17 11:20 03/17/17 11:12 03/17/17 11:20 General appearance: Present: A&O X 3, morbidly obese, pleasant, no acute distress, answers questions appropriately - Head Head exam: Present: atraumatic, normocephalic - Eye Eye exam: Present: conjuntiva pink, sclera anicteric - Respiratory Respiratory exam: Present: decreased breath sounds (small bore left chest tube) . Absent: respiratory distress, wheezes - Cardiovascular Cardiovascular exam: Present: RRR, +S1, +S2. Absent: diastolic murmur, gallop, rubs, systolic murmur - GI/Abdominal GI/Abdominal exam: Present: normal bowel sounds, soft, no peritoneal signs. Absent: distended, tenderness - Extremities Exam Extremities exam: Present: warm, radial pulses palpable and symetrical. Absent : calf tenderness, cyanotic, pedal edema - Neurological Exam Neurological exam: Present: alert, oriented X3 - Psychiatric Psychiatric exam: Present: normal affect, normal mood Internal Medicine: Result - Labs CBC & Chem 7: 03/17/17 04:45 03/17/17 04:45 Labs: Short CBC 03/17/17 Range/Units 04:45 WBC 17.8 H (4.3-11.1) K/mcL Hgb 12.2 (11.5-15.4) g/dL Hct 39.6 (35.3-44.9) % Plt Count 275 (140-400) K/mcL Neutrophils # 12.6 H (1.6-8.9) K/mcL BMP 03/17/17 04:45 Sodium 137 Potassium 4.1 Chloride 98 Carbon Dioxide 33 H BUN 16 Creatinine 0.84 Glucose 124 H Calcium 9.9 - ABG Interpretation ABG results: PT/INR, D-dimer PT 14.6 Seconds (9.4-12.1) H 03/16/17 04:30 - Impressions Impressions Chest X-Ray 03/16/17 09:48 IMPRESSION: New left-sided chest tube in the lung base with decreased fluid in the lung base. Persistent density in the left lung apex which could represent fluid, mass, or volume loss. RECOMMENDATION: Follow up to resolution is suggested. D/ / 03/16/2017 10:30:50 Rolanda Garcia MD [facility] Interpreting Provider: Rolanda Garcia MD Chest X-Ray 03/17/17 08:51 IMPRESSION: No pneumothorax. Left chest tube at the base of the left lung as detailed. Persistent complete opacification of the upper left hemithorax. D/ / Herb Suazo MD / Herb Suazo MD Interpreting Provider: Herb Suazo MD Consult Discharge Plan - Plan Referrals: Purvi Rey [Primary Care Provider] -
[2017-03-17] MEDS ORDERED: Furosemide 40 MG/4 ML VIAL IVP SCH (17:00)
[2017-03-17] MEDS: Vancomycin 1,500 MG in D5% in Water 250 ML IVPB SCH (17:19)
[2017-03-18 01:09] LABS: Basophils # 0.1 K/mcL (0.0-0.2); Basophils % 0.3 %; Eosinophils # 0.3 K/mcL (0.0-0.6); Eosinophils % 1.9 %; Immature Granulocytes % 0.9 % (0-4); Lymphocytes # 3.2 K/mcL (0.6-4.6); Lymphocytes % 20.9 %; Mean Corpuscular HGB Conc 30.9 g/dL (31.6-35.5); Mean Corpuscular Hemoglobin 27.9 pg (28.0-33.3); Mean Corpuscular Volume 90.4 fL (83.0-100.0); Mean Platelet Volume 10.5 fL (9.4-12.4); Monocytes # 1.2 K/mcL (0.0-1.3); Monocytes % 7.9 %; Neutrophils # 10.5 K/mcL (1.6-8.9); Platelet Count 216 K/mcL (140-400); Red Blood Count 3.65 M/mcL (3.82-4.97); Red Cell Distribution Width 16.2 % (11.5-14.5); Segmented Neutrophils % 68.1 %
[2017-03-18 01:17] LABS: Hemoglobin 10.2 g/dL (11.5-15.4)
[2017-03-18 01:25] LABS: BUN/Creatinine Ratio 28 (6-26); Blood Urea Nitrogen 25 mg/dL (7-20); Calcium 9.3 mg/dL (8.6-10.8); Carbon Dioxide 32 mEq/L (19-29); Chloride 97 mEq/L (98-109); Glucose 195 mg/dL (70-99); Magnesium 1.9 mg/dL (1.6-2.6); Osmolality,Calculated 288 (280-300); Phosphorous 3.6 mg/dL (2.3-4.7); Sodium 134 mEq/L (136-145); eGFR For African Americans > 60 (> 60); eGFR For Non-African Americans > 60 (> 60)
[2017-03-18] MEDS: Ipratropium/Albuterol Neb 3 ML IH SCH ×2 (03:45→10:48)
[2017-03-18] MEDS: *HR* Heparin 5,000 UNIT/ML VIAL SQ SCH ×2 (06:18→20:57)
--- NOTE | 2017-03-18 08:33 | Pulmonology Progress Note ---
Date of Encounter: 03/18/17 Time of Encounter: 08:29 Assessment and Plan (1) Abnormal chest CT Current Visit: Yes Status: Acute Chest CT abnormality, as previously described. Given large seemingly loculated left pleural effusion possibly parapneumonic opr malignant, small bore chest tube placed. Based upon my review the chart, it is uncertain if any of the fluid was sent for requested analysis hence these orders have been placed back into the chart and sees routine analysis, culture Gram stain and cytology). I did obtain fluid this morning from the collection chamber for analysis but obviously, this is not a fresh specimen. Continue current antibiotic therapy for presumptive parapneumonic effusion. Given the appearance of the CT scan, the patient may have an intraparenchymal abscess or alternatively, a malignant process hence the patient will likely require bronchoscopy next week. I will defer the bronchoscopy to the grainer machine assuming care next week. If the effusion is parapneumonic and if it fails to resolve with chest tube placement alone then I recommend intrapleural lytic therapy. Alternatively, if malignant then obviously intrapleural lytic are not indicated for management. Management and my impressions reviewed with the patient and nursing staff. The patient has agreed to proceed with bronchoscopy this upcoming week. Code(s): R93.8 - Abnormal findings on diagnostic imaging of other specified body structures SNOMED Code(s): 389891493 Subjective Principal diagnosis: Pleural effusion Interval history: Patient underwent smallbore chest tube placement . She notes a substantial overall improvement of her clinical respiratory status. No new events reported overnight. Comprehensive systems review unremarkable. Objective PUL Vital signs: Last Vital Signs Temp 98.4 F 03/18/17 07:47 Pulse 100 03/18/17 07:47 Resp 18 03/18/17 07:47 BP 102/51 03/18/17 07:47 Pulse Ox 94 03/18/17 07:47 General appearance: no acute distress, other Eyes: nonicteric (Obese female) ENT: oropharynx moist Neck: no lymphadenopathy Auscultation: left: diminished breath sounds (Smallbore left chest tube, no drainage since its initial placement) Cardiovascular: regular rate and rhythm Gastrointestinal: normoactive bowel sounds, non-distended Extremities: no cyanosis normal mental status, non-focal exam mood appropriate Results - Laboratory Findings CBC and BMP: 03/18/17 00:42 03/18/17 00:42 PT/INR, D-dimer PT 14.6 Seconds (9.4-12.1) H 03/16/17 04:30 Abnormal lab findings: Abnormal lab results WBC 15.4 K/mcL (4.3-11.1) H 03/18/17 00:42 RBC 3.65 M/mcL (3.82-4.97) L 03/18/17 00:42 Hgb 10.2 g/dL (11.5-15.4) L D 03/18/17 00:42 Hct 33.0 % (35.3-44.9) L 03/18/17 00:42 MCH 27.9 pg (28.0-33.3) L 03/18/17 00:42 MCHC 30.9 g/dL (31.6-35.5) L 03/18/17 00:42 RDW 16.2 % (11.5-14.5) H 03/18/17 00:42 Neutrophils # 10.5 K/mcL (1.6-8.9) H 03/18/17 00:42 PT 14.6 Seconds (9.4-12.1) H 03/16/17 04:30 Sodium 134 mEq/L (136-145) L 03/18/17 00:42 Chloride 97 mEq/L (98-109) L 03/18/17 00:42 Carbon Dioxide 32 mEq/L (19-29) H 03/18/17 00:42 BUN 25 mg/dL (7-20) H 03/18/17 00:42 BUN/Creatinine Ratio 28 (6-26) H 03/18/17 00:42 Glucose 195 mg/dL (70-99) H 03/18/17 00:42 POC Glucose 156 (58-89) H 03/17/17 20:07 Albumin 2.5 g/dL (3.5-5.0) L 03/16/17 04:30 Globulin 4.7 g/dL (2.4-3.5) H 03/16/17 04:30 Albumin/Globulin Ratio 0.5 (1.1-2.2) L 03/16/17 04:30 Ur Specific [place] > 1.030 (1.010-1.025) H 03/16/17 06:00 Pleural Appearance Cloudy (Clear) A 03/16/17 09:49 Pleural RBC 0.045 M/mcL (0.000-0.002) H 03/16/17 09:49 Pleural Tot Nuc Cell 8037 TNC/mcL (0-1000) H 03/16/17 09:49 Vancomycin Trough 9.5 mcg/mL (10-20) L 03/17/17 16:14 - Microbiology Findings Microbiology Findings: Microbiology, Last 48 Hours 03/16/17 12:28 Blood Culture - Preliminary Peripheral Venipuncture No growth. 03/16/17 12:29 Blood Culture - Preliminary Peripheral Venipuncture No growth. 03/16/17 09:49 Body Fluid Culture - Preliminary Pleural Fluid - Clinical Findings Intake & Output: Intake & Output 03/17/17 03/18/17 03/18/17 23:59 07:59 15:59 Intake Total 120 / 120 520 / 520 Output Total 250 / 250 1560 / 1560 Balance -130 / -130 -1040 / -1040 Weight 102.5 kg Consult Discharge Plan - Plan Referrals: Purvi Rey [Primary Care Provider] -
[2017-03-18] MEDS: Famotidine 20 MG/2 ML VIAL IVP SCH ×2 (09:43→20:57)
[2017-03-18] MEDS: Furosemide 40 MG/4 ML VIAL IVP SCH ×2 (09:43→17:08)
[2017-03-18] MEDS: Lactobacillus 1 EACH CAP.SPRINK PO SCH ×2 (09:43→20:56)
[2017-03-18] MEDS: Levofloxacin 750 MG/150 ML 750 MG/150 ML BAG IVPB SCH (09:44)
[2017-03-18] MEDS: Gabapentin 300 MG CAPSULE PO SCH ×3 (09:44→20:57)
[2017-03-18] MEDS: Insulin LISPRO 300 UNITS/3 ML VIAL SQ SCH ×3 (09:44→17:09)
[2017-03-18] MEDS: Aspirin Enteric Coated 81 MG Tablet PO SCH (09:44)
--- NOTE | 2017-03-18 11:42 | Internal Med Progress Note ---
Date of Encounter: 03/18/17 Time of Encounter: 11:29 - Assessment and plan (1) Acute respiratory failure Current Visit: Yes Status: Acute Assessment and plan: Secondary to loculated pleural effusion Pulmonary evaluation appreciated s/p left chest tube placement by IR (03/16/17) will follow up pleural fluid cytology and cultures continue empiric abx therapy at this time O2 supplementation as needed closely monitor O2 sat goal O2 sat>90% noted to be tachycardic secondary to albuterol nebulizer treatments, will switch to xopenex Qualifiers: Respiratory failure complication: unspecified whether with hypoxia or hypercapnia Qualified Code(s): J96.00 - Acute respiratory failure, unspecified whether with hypoxia or hypercapnia (2) Loculated pleural effusion Current Visit: Yes Status: Acute Assessment and plan: as listed above (3) Essential hypertension Current Visit: Yes Status: Chronic Assessment and plan: Noted to be hypotensive, clinically asymptomatic Last BP: 95/50 Will closely monitor BP and maintain MAP>65 hold Lisinopril at this time lasix 20mg IV BID (4) Type 2 diabetes mellitus Current Visit: Yes Status: Chronic Assessment and plan: BG within acceptable range will continue insulin therapy ss insulin as needed monitor FS and BG Qualifiers: Diabetes mellitus complication status: without complication Diabetes mellitus shelter insulin use: without termite renewal inspector use Qualified Code(s): E11.9 - Type 2 diabetes mellitus without complications (5) Hypothyroidism Current Visit: Yes Status: Chronic Assessment and plan: continue Levothyroxine Qualifiers: Hypothyroidism type: unspecified Qualified Code(s): E03.9 - Hypothyroidism , unspecified (6) DVT prophylaxis Current Visit: Yes Status: Acute Assessment and plan: Heparin SQ - Subjective Interval history: Patient seen and examined at bedside. Sitting in bed and reports of feeling better compared to previous day. Denies sob, chest pain. No overnight issues reported. noted to has sinus tachycardia. Will d/c duoneb and start xopenex. - Constitutional Vitals: Temp Pulse Resp BP Pulse Ox 98.4 F 100 16 102/51 97 03/18/17 07:47 03/18/17 07:47 03/18/17 10:48 03/18/17 07:47 03/18/17 10:48 General appearance: Present: cooperative, A&O X 3, morbidly obese, pleasant, no acute distress, answers questions appropriately - Head Head exam: Present: atraumatic, normocephalic - Eye Eye exam: Present: conjuntiva pink, sclera anicteric - Respiratory Respiratory exam: Present: decreased breath sounds. Absent: respiratory distress, wheezes (small bore left chest tube) - Cardiovascular Cardiovascular exam: Present: +S1, +S2, tachycardia. Absent: diastolic murmur, systolic murmur - GI/Abdominal GI/Abdominal exam: Present: normal bowel sounds, soft, no peritoneal signs. Absent: distended, tenderness - Extremities Exam Extremities exam: Present: warm, radial pulses palpable and symetrical. Absent : calf tenderness, pedal edema - Neurological Exam Neurological exam: Present: alert, oriented X3 - Psychiatric Psychiatric exam: Present: normal affect, normal mood Internal Medicine: Result - Labs CBC & Chem 7: 03/18/17 00:42 03/18/17 00:42 Labs: Short CBC 03/18/17 Range/Units 00:42 WBC 15.4 H (4.3-11.1) K/mcL Hgb 10.2 L D (11.5-15.4) g/dL Hct 33.0 L (35.3-44.9) % Plt Count 216 (140-400) K/mcL Neutrophils # 10.5 H (1.6-8.9) K/mcL BMP 03/18/17 00:42 Sodium 134 L Potassium 4.0 Chloride 97 L Carbon Dioxide 32 H BUN 25 H Creatinine 0.89 Glucose 195 H Calcium 9.3 - ABG Interpretation ABG results: PT/INR, D-dimer PT 14.6 Seconds (9.4-12.1) H 03/16/17 04:30 Consult Discharge Plan - Plan Referrals: Purvi Rey [Primary Care Provider] -
[2017-03-18] MEDS: Levalbuterol 1 PUFF INHALER IH SCH ×2 (16:15→22:43)
[2017-03-18] MEDS: Vancomycin 1,500 MG in D5% in Water 250 ML IVPB SCH (17:19)
[2017-03-19] MEDS: Levalbuterol 1 PUFF INHALER IH SCH ×4 (03:39→22:39)
[2017-03-19 03:59] LABS: Basophils # 0.1 K/mcL (0.0-0.2); Basophils % 0.5 %; Eosinophils # 0.3 K/mcL (0.0-0.6); Eosinophils % 1.6 %; Hematocrit 36.4 % (35.3-44.9); Hemoglobin 11.1 g/dL (11.5-15.4); Immature Granulocytes % 1.1 % (0-4); Lymphocytes # 2.4 K/mcL (0.6-4.6); Lymphocytes % 15.8 %; Mean Corpuscular HGB Conc 30.5 g/dL (31.6-35.5); Mean Corpuscular Hemoglobin 27.5 pg (28.0-33.3); Mean Corpuscular Volume 90.3 fL (83.0-100.0); Mean Platelet Volume 10.1 fL (9.4-12.4); Monocytes # 1.5 K/mcL (0.0-1.3); Monocytes % 9.9 %; Neutrophils # 10.8 K/mcL (1.6-8.9); Platelet Count 234 K/mcL (140-400); Red Blood Count 4.03 M/mcL (3.82-4.97); Segmented Neutrophils % 71.1 %
[2017-03-19 04:20] LABS: BUN/Creatinine Ratio 25 (6-26); Blood Urea Nitrogen 19 mg/dL (7-20); Calcium 9.8 mg/dL (8.6-10.8); Carbon Dioxide 29 mEq/L (19-29); Chloride 99 mEq/L (98-109); Glucose 139 mg/dL (70-99); Magnesium 1.9 mg/dL (1.6-2.6); Osmolality,Calculated 287 (280-300); Phosphorous 3.7 mg/dL (2.3-4.7); Potassium 4.1 mEq/L (3.5-4.5); Sodium 136 mEq/L (136-145); eGFR For African Americans > 60 (> 60); eGFR For Non-African Americans > 60 (> 60)
[2017-03-19] MEDS: *HR* Heparin 5,000 UNIT/ML VIAL SQ SCH ×2 (06:22→17:45)
[2017-03-19] MEDS: Insulin LISPRO 300 UNITS/3 ML VIAL SQ SCH ×3 (07:34→17:16)
--- NOTE | 2017-03-19 07:39 | Pulmonology Progress Note ---
Date of Encounter: 03/19/17 Time of Encounter: 07:39 Assessment and Plan (1) Abnormal chest CT Current Visit: Yes Status: Acute This is suspicious for primary lung malignancy with possible malignant pleural effusion versus primary lung malignancy with postobstructive pneumonia/abscess and complicated parapneumonic effusion. Plan for bronchoscopy today to evaluate airway anatomy and if endobronchial lesion present biopsy. I explained to the patient she may have to be brought back under general anesthesia for more advanced procedure including debulking and possibly endobronchial ultrasound based upon airway anatomy A bronchoscopy is recommended. The procedure , risks, benefits, complications, and expected outcomes have been reviewed. Benefits of diagnosis, as well as risks to include bleeding, infection, pneumothorax which may require surgical intervention, and in a small population. The patient is aware that sometimes test is nondiagnostic. Discussed with patient and agrees to proceed. Continuation of antimicrobials and de-escalation based upon sensitivities. (2) DVT prophylaxis Current Visit: Yes Status: Acute Continue chemical DVT prophylaxis (3) Loculated pleural effusion Current Visit: Yes Status: Acute This is a exudative lymphocytic predominant effusion that is c/w malignancy ( lathough coplicated parapneumonic effusion not excluded) status post chest tube placement with drainage repeat CT scan pending today if effusion has resolved could likely remove chest tube later in the day additionally cytology has been sent down for analysis. There is no evidence of empyema. (4) Suspected chronic obstructive pulmonary disease based on initial evaluation Current Visit: Yes Status: Acute Present would schedule bronchodilators (short acting muscarinic agent and short acting beta agonist) every 6 hours. We will likely start a metered-dose inhaler at this admission that she can be discharged with. I reinforced again to remain tobacco free Subjective Principal diagnosis: Pleural effusion Interval history: No acute events overnight. She remains on a few liters of supplemental O2 provided via NC. She reports that she feels stronger since she has come into the hospital and generally better. Objective PUL Vital signs: Last Vital Signs Temp 99.4 F 03/19/17 07:13 Pulse 99 03/19/17 07:13 Resp 16 03/19/17 07:13 BP 113/66 03/19/17 07:13 Pulse Ox 96 03/19/17 07:13 General appearance: no acute distress ENT: oropharynx dry Auscultation: bilateral: diminished breath sounds (L >> R ), wheezes (faint exp wheeze) Cardiovascular: regular rate and rhythm Gastrointestinal: normoactive bowel sounds, soft, non-tender Extremities: no edema, pink and warm normal mental status, non-focal exam mood appropriate Results - Laboratory Findings CBC and BMP: 03/19/17 03:11 03/19/17 03:11 PT/INR, D-dimer PT 14.6 Seconds (9.4-12.1) H 03/16/17 04:30 Abnormal lab findings: Abnormal lab results WBC 15.2 K/mcL (4.3-11.1) H 03/19/17 03:11 Hgb 11.1 g/dL (11.5-15.4) L 03/19/17 03:11 MCH 27.5 pg (28.0-33.3) L 03/19/17 03:11 MCHC 30.5 g/dL (31.6-35.5) L 03/19/17 03:11 RDW 16.0 % (11.5-14.5) H 03/19/17 03:11 Neutrophils # 10.8 K/mcL (1.6-8.9) H 03/19/17 03:11 Monocytes # 1.5 K/mcL (0.0-1.3) H 03/19/17 03:11 PT 14.6 Seconds (9.4-12.1) H 03/16/17 04:30 Glucose 139 mg/dL (70-99) H 03/19/17 03:11 POC Glucose 139 (58-89) H 03/18/17 20:59 Albumin 2.5 g/dL (3.5-5.0) L 03/16/17 04:30 Globulin 4.7 g/dL (2.4-3.5) H 03/16/17 04:30 Albumin/Globulin Ratio 0.5 (1.1-2.2) L 03/16/17 04:30 Ur Specific [place] > 1.030 (1.010-1.025) H 03/16/17 06:00 Pleural Appearance Cloudy (Clear) A 03/16/17 09:49 Pleural RBC 0.045 M/mcL (0.000-0.002) H 03/16/17 09:49 Pleural Tot Nuc Cell 8037 TNC/mcL (0-1000) H 03/16/17 09:49 Vancomycin Trough 9.5 mcg/mL (10-20) L 03/17/17 16:14 - Microbiology Findings Microbiology Findings: Microbiology, Last 48 Hours 03/16/17 12:28 Blood Culture - Preliminary Peripheral Venipuncture No growth. 03/16/17 12:29 Blood Culture - Preliminary Peripheral Venipuncture No growth. 03/16/17 09:49 Body Fluid Culture - Preliminary Pleural Fluid - Clinical Findings Intake & Output: Intake & Output 03/18/17 03/18/17 03/19/17 15:59 23:59 07:59 Intake Total 480 / 480 120 / 120 0 / 0 Output Total 450 / 450 1700 / 1700 Balance 480 / 480 -330 / -330 -1700 / -1700 Weight 102.8 kg Consult Discharge Plan - Plan Referrals: Purvi Rey [Primary Care Provider] -
[2017-03-19] MEDS ORDERED: *HR* FentaNYL (PF) 100 MCG/2 ML VIAL ONE (08:22)
[2017-03-19] MEDS ORDERED: *HR* Midazolam HCl 5 MG/5 ML VIAL IVP ONE (08:22)
[2017-03-19] MEDS ORDERED: *HR* FentaNYL (PF) 100 MCG/2 ML VIAL IVP PRN (09:12)
[2017-03-19] MEDS ORDERED: *HR* Midazolam HCl 5 MG/5 ML VIAL IVP PRN (09:12)
[2017-03-19] MEDS ORDERED: Tetracaine/Benzocaine/Butamben 200MG/SPRAY (100SPY/BOT) MM ONE (09:12)
[2017-03-19] MEDS ORDERED: *HR* EPINEPHrine 1 MG/10 ML SYRINGE INTRATRACH PRN (09:12)
--- NOTE | 2017-03-19 09:12 | Pre-Sedation Evaluation ---
Pre-sedation evaluation - Pre-sedation checklist Date of procedure: 03/16/17 Procedure: Bronch Recent Vitals: Last Vital Signs Temp 98.5 F 03/19/17 08:55 Pulse 101 03/19/17 08:55 Resp 20 03/19/17 08:55 BP 130/68 03/19/17 08:55 Pulse Ox 94 03/19/17 08:55 H&P (including ROS) documented in medical record: Yes Previous reaction to sedatives/anesthetics: No Dietary Status: NPO after Midnight Airway Assessment: Micrognathia (under-bite, receding chin) absent Dentition: poor dentition Possible difficult airway: Yes If Yes;: Micrognathia, Morbid obesity ASA Classification *see protocol: CLASS IV-Severe systemic disease/constant threat to pt's life Plan of Care: Pt appropriate candidate for procedure/moderate/conscious sedation , Risks/benefits of procedure/sedation discussed w/ patient/family
[2017-03-19] MEDS ORDERED: 0.9 % Sodium Chloride 1,000 ML IVC SCH (09:15)
--- NOTE | 2017-03-19 09:48 | Event Note ---
Date of Encounter: 03/19/17 Time of Encounter: 09:47 I reviewed her chest CT and showed resolution of left-sided pleural effusion as such I removed her pigtail catheter at bedside post bronchoscopy. The procedure was done after chlorhexidine was administered to area the pigtail catheter was cut and while patient was humming I removed moved to pigtail without complication a 2 x 2 over petroleum dressing was applied and Tegaderm was applied over that there were no untoward events
[2017-03-19] MEDS ORDERED: GuaiFENesin/Dextromethorphan TABLET PO PRN (11:06)
--- NOTE | 2017-03-19 11:07 | Internal Med Progress Note ---
Date of Encounter: 03/19/17 Time of Encounter: 11:06 - Assessment and plan (1) Acute respiratory failure Current Visit: Yes Status: Acute Assessment and plan: Secondary to loculated pleural effusion Pulmonary evaluation appreciated s/p Bronchoscopy (03/19/17) and removal of chest tube Pleural fluid analysis concerning for malignancy Bronchoscopy showed left upper lobe mass concerning for malignancy continue empiric abx therapy at this time O2 supplementation as needed closely monitor O2 sat goal O2 sat>90% Added Symbicort BID Qualifiers: Respiratory failure complication: unspecified whether with hypoxia or hypercapnia Qualified Code(s): J96.00 - Acute respiratory failure, unspecified whether with hypoxia or hypercapnia (2) Loculated pleural effusion Current Visit: Yes Status: Acute Assessment and plan: as listed above (3) Essential hypertension Current Visit: Yes Status: Chronic Assessment and plan: BP improved from previous day continue to hold antihypertensives at this time will closely monitor (4) Type 2 diabetes mellitus Current Visit: Yes Status: Chronic Assessment and plan: BG within acceptable range will continue insulin therapy ss insulin as needed monitor FS and BG Qualifiers: Diabetes mellitus complication status: without complication Diabetes mellitus lobsterman insulin use: without lobsterman use Qualified Code(s): E11.9 - Type 2 diabetes mellitus without complications (5) Hypothyroidism Current Visit: Yes Status: Chronic Assessment and plan: continue Levothyroxine Qualifiers: Hypothyroidism type: unspecified Qualified Code(s): E03.9 - Hypothyroidism , unspecified (6) DVT prophylaxis Current Visit: Yes Status: Acute Assessment and plan: Heparin SQ - Subjective Interval history: Patient seen and examined at bedside. Sitting in bed and s/p bronchoscopy. Pleural fluid analysis concerning for malignancy and bronchoscopy showed left upper lobe mass concerning for malignancy. Pt reports of having 30+years of smoking history and quitting in 2008. Advance care directives were addressed with the patient. She is to discuss with family and let the medical staff know of her decision. Pt to remain full code. - Constitutional Vitals: Temp Pulse Resp BP Pulse Ox 98.5 F 102 17 118/63 96 03/19/17 08:55 03/19/17 09:45 03/19/17 10:54 03/19/17 09:45 03/19/17 10:54 General appearance: Present: cooperative, A&O X 3, morbidly obese, pleasant, no acute distress, answers questions appropriately - Head Head exam: Present: atraumatic, normocephalic - Eye Eye exam: Present: conjuntiva pink, sclera anicteric - Respiratory Respiratory exam: Absent: respiratory distress, wheezes (equal air entry bilaterally) - Cardiovascular Cardiovascular exam: Present: RRR, +S1, +S2. Absent: diastolic murmur, gallop, rubs, systolic murmur - GI/Abdominal GI/Abdominal exam: Present: normal bowel sounds, soft, no peritoneal signs. Absent: distended, tenderness - Extremities Exam Extremities exam: Present: warm, radial pulses palpable and symetrical. Absent : calf tenderness, pedal edema - Neurological Exam Neurological exam: Present: alert, oriented X3 - Psychiatric Psychiatric exam: Present: normal affect, normal mood Internal Medicine: Result - Labs CBC & Chem 7: 03/19/17 03:11 03/19/17 03:11 Labs: Short CBC 03/19/17 Range/Units 03:11 WBC 15.2 H (4.3-11.1) K/mcL Hgb 11.1 L (11.5-15.4) g/dL Hct 36.4 (35.3-44.9) % Plt Count 234 (140-400) K/mcL Neutrophils # 10.8 H (1.6-8.9) K/mcL BMP 03/19/17 03:11 Sodium 136 Potassium 4.1 Chloride 99 Carbon Dioxide 29 BUN 19 Creatinine 0.75 Glucose 139 H Calcium 9.8 - ABG Interpretation ABG results: PT/INR, D-dimer PT 14.6 Seconds (9.4-12.1) H 03/16/17 04:30 - Impressions Impressions Chest CT 03/19/17 08:30 IMPRESSION: 1. Left thoracotomy tube placement with significant improvement left pleural effusion with improved aeration left lower lobe. 2. Complete collapse left upper lobe with soft tissue density and/or fluid obstructing the segmental bronchi to the left upper lobe. Differential includes neoplasm and/or infection. Recommend bronchoscopy. D/ / 03/19/2017 09:03:49 Carlito Anne MD / marely Interpreting Provider: Carlito Anne MD Consult Discharge Plan - Plan Referrals: Purvi Rey [Primary Care Provider] -
[2017-03-19] MEDS: Lactobacillus 1 EACH CAP.SPRINK PO SCH ×2 (11:44→21:02)
[2017-03-19] MEDS: Gabapentin 300 MG CAPSULE PO SCH ×3 (11:44→21:02)
[2017-03-19] MEDS: Aspirin Enteric Coated 81 MG Tablet PO SCH (11:44)
[2017-03-19] MEDS: Furosemide 40 MG/4 ML VIAL IVP SCH ×2 (11:45→17:48)
[2017-03-19] MEDS: Famotidine 20 MG/2 ML VIAL IVP SCH (11:45)
[2017-03-19] MEDS: Levofloxacin 750 MG/150 ML 750 MG/150 ML BAG IVPB SCH (11:48)
--- NOTE | 2017-03-19 15:48 | Electrocardiograph Report ---
[address] [address] Test Date: 2017-03-18 Pat Name: Fernanda Thomas Department: 111 Room: 2NE24 Gender: F Follow Up Manager: MILLER : 1940 Requested By: Laurie Tam Order Number: [id number] Reading MD: Carter Polanco MD Measurements Intervals [place] Rate: 107 P: 2 AL: 163 QRS: -3 QRSD: 101 T: 40 QT: 305 QTc: 368 Interpretive Statements SINUS TACHYCARDIA Poor R wave progression Electronically Signed On 03-19-2017 15:46:34 EDT by Carter Polanco MD
[2017-03-19] MEDS: Vancomycin 1,500 MG in D5% in Water 250 ML IVPB SCH (17:49)
[2017-03-19] MEDS: Famotidine 20 MG TABLET PO SCH (21:02)
[2017-03-19] MEDS: Budesonide/Formoterol 160/4.5 MDI IH SCH (22:39)
[2017-03-20] MEDS: Levalbuterol 1 PUFF INHALER IH SCH ×4 (04:46→21:36)
[2017-03-20] MEDS: *HR* Heparin 5,000 UNIT/ML VIAL SQ SCH ×2 (06:31→17:18)
[2017-03-20 06:46] LABS: Basophils # 0.1 K/mcL (0.0-0.2); Basophils % 0.3 %; Eosinophils # 0.2 K/mcL (0.0-0.6); Eosinophils % 1.4 %; Hematocrit 35.5 % (35.3-44.9); Hemoglobin 10.6 g/dL (11.5-15.4); Immature Granulocytes % 0.9 % (0-4); Lymphocytes # 1.9 K/mcL (0.6-4.6); Lymphocytes % 12.7 %; Mean Corpuscular HGB Conc 29.9 g/dL (31.6-35.5); Mean Corpuscular Hemoglobin 26.9 pg (28.0-33.3); Mean Corpuscular Volume 90.1 fL (83.0-100.0); Mean Platelet Volume 10.4 fL (9.4-12.4); Monocytes # 1.4 K/mcL (0.0-1.3); Monocytes % 9.5 %; Neutrophils # 11.2 K/mcL (1.6-8.9); Platelet Count 232 K/mcL (140-400); Red Blood Count 3.94 M/mcL (3.82-4.97); Red Cell Distribution Width 16.1 % (11.5-14.5); Segmented Neutrophils % 75.2 %
[2017-03-20 07:11] LABS: BUN/Creatinine Ratio 20 (6-26); Blood Urea Nitrogen 14 mg/dL (7-20); Carbon Dioxide 34 mEq/L (19-29); Chloride 97 mEq/L (98-109); Glucose 130 mg/dL (70-99); Magnesium 1.8 mg/dL (1.6-2.6); Osmolality,Calculated 284 (280-300); Phosphorous 3.9 mg/dL (2.3-4.7); Sodium 136 mEq/L (136-145); eGFR For African Americans > 60 (> 60); eGFR For Non-African Americans > 60 (> 60)
[2017-03-20] MEDS: Furosemide 40 MG/4 ML VIAL IVP SCH ×2 (07:42→16:31)
[2017-03-20] MEDS: Lactobacillus 1 EACH CAP.SPRINK PO SCH ×2 (07:42→20:38)
[2017-03-20] MEDS: Gabapentin 300 MG CAPSULE PO SCH ×3 (07:42→20:38)
[2017-03-20] MEDS: Levofloxacin 750 MG/150 ML 750 MG/150 ML BAG IVPB SCH (07:43)
[2017-03-20] MEDS: Aspirin Enteric Coated 81 MG Tablet PO SCH (07:43)
[2017-03-20] MEDS: Famotidine 20 MG TABLET PO SCH ×2 (07:43→20:38)
[2017-03-20] MEDS: Insulin LISPRO 300 UNITS/3 ML VIAL SQ SCH ×3 (07:47→16:32)
--- NOTE | 2017-03-20 08:32 | Event Note ---
Date of Encounter: 03/20/17 Time of Encounter: 08:30 I discussed the case again with the patient this morning it appears that she has left upper lobe findings that are very concerning for malignancy we will wait upon cytology report to determine if this was a malignant effusion or not. She will need to have repeat bronchoscopy with possibility of debulking/ dilation to improve aeration of left upper lobe unclear this will be successful or not given degree of both intrinsic and extrinsic compression. She is willing to undergo go this which will have to be done with general anesthesia support. In interim would continue antimicrobial therapy
[2017-03-20] MEDS: Vancomycin 1,500 MG in D5% in Water 250 ML IVPB SCH ×2 (08:57→20:39)
--- NOTE | 2017-03-20 11:06 | Internal Med Progress Note ---
Date of Encounter: 03/20/17 Time of Encounter: 11:05 - Assessment and plan (1) Acute respiratory failure Current Visit: Yes Status: Acute Assessment and plan: Secondary to loculated pleural effusion Pulmonary evaluation appreciated s/p Bronchoscopy (03/19/17) and removal of chest tube Pleural fluid analysis concerning for malignancy Bronchoscopy showed left upper lobe mass concerning for malignancy scheduled for repeat bronchoscopy in am to improve aeration to left upper lobe NPO after midnight continue empiric abx therapy at this time O2 supplementation as needed closely monitor O2 sat goal O2 sat>90% continue Symbicort BID Qualifiers: Respiratory failure complication: unspecified whether with hypoxia or hypercapnia Qualified Code(s): J96.00 - Acute respiratory failure, unspecified whether with hypoxia or hypercapnia (2) Loculated pleural effusion Current Visit: Yes Status: Acute Assessment and plan: as listed above (3) Essential hypertension Current Visit: Yes Status: Chronic Assessment and plan: BP within acceptable range continue to hold antihypertensives at this time will closely monitor restart antihypertensive if SBP>140 (4) Type 2 diabetes mellitus Current Visit: Yes Status: Chronic Assessment and plan: BG within acceptable range will continue insulin therapy ss insulin as needed monitor FS and BG Qualifiers: Diabetes mellitus complication status: without complication Diabetes mellitus residential insulin use: without residential use Qualified Code(s): E11.9 - Type 2 diabetes mellitus without complications (5) Hypothyroidism Current Visit: Yes Status: Chronic Assessment and plan: continue Levothyroxine Qualifiers: Hypothyroidism type: unspecified Qualified Code(s): E03.9 - Hypothyroidism , unspecified (6) DVT prophylaxis Current Visit: Yes Status: Acute Assessment and plan: Heparin SQ - Subjective Interval history: Patient seen and examined at bedside. Resting in bed and aware of her bronchoscopy findings. Willing to go repeat bronchoscopy in am. advance directives were discussed in great detail. Pt wishes to remain full code. - Constitutional Vitals: Temp Pulse Resp BP Pulse Ox 98.3 F 95 17 123/68 97 03/19/17 23:24 03/20/17 07:00 03/20/17 07:00 03/20/17 07:00 03/20/17 07:00 General appearance: Present: cooperative, A&O X 3, morbidly obese, pleasant, no acute distress, answers questions appropriately - Head Head exam: Present: atraumatic, normocephalic - Respiratory Respiratory exam: Present: decreased breath sounds. Absent: respiratory distress, wheezes - Cardiovascular Cardiovascular exam: Present: RRR, +S1, +S2. Absent: diastolic murmur, gallop, rubs, systolic murmur - GI/Abdominal GI/Abdominal exam: Present: normal bowel sounds, soft, no peritoneal signs. Absent: distended, tenderness - Extremities Exam Extremities exam: Present: warm, radial pulses palpable and symetrical. Absent : calf tenderness, cyanotic, pedal edema - Neurological Exam Neurological exam: Present: alert, oriented X3, no focal deficits - Psychiatric Psychiatric exam: Present: normal affect, normal mood Internal Medicine: Result - Labs CBC & Chem 7: 03/20/17 05:50 03/20/17 05:50 Labs: Short CBC 03/20/17 Range/Units 05:50 WBC 14.9 H (4.3-11.1) K/mcL Hgb 10.6 L (11.5-15.4) g/dL Hct 35.5 (35.3-44.9) % Plt Count 232 (140-400) K/mcL Neutrophils # 11.2 H (1.6-8.9) K/mcL BMP 03/20/17 05:50 Sodium 136 Potassium 4.0 Chloride 97 L Carbon Dioxide 34 H BUN 14 Creatinine 0.71 Glucose 130 H Calcium 10.0 - ABG Interpretation ABG results: PT/INR, D-dimer PT 14.6 Seconds (9.4-12.1) H 03/16/17 04:30 Consult Discharge Plan - Plan Referrals: Purvi Rey [Primary Care Provider] -
[2017-03-20] MEDS: Budesonide/Formoterol 160/4.5 MDI IH SCH ×2 (11:34→21:36)
--- NOTE | 2017-03-20 20:02 | Anesthesia Evaluation PreOp ---
Date of Encounter: 03/20/17 Time of Encounter: 19:59 - Past History Planned Operation: ebus Cardiac History: HTN, Other (03/16 echo ef60, nl rv) Pulmonary History: Former smoker (quit 2008), Pack/yr (81), Snore, Other (admit for l pleural eff, s/p CT on 03/16) MEDICAL REVIEW SPECIALIST History: Denies Any Significant HX Other Medical History: Diabetes Type II (pt not on meds but most recent accucheck is 220), Thyroid Anesthesia History: No Prior Anesthetic Complications, Past Anesthesia ( cholecyst, hysterect) Alcohol Use: none Drug use: marijuana Medications and Allergies Allopurinol [Zyloprim] 300 mg PO BID 03/15/17 [History] Aspirin Enteric Coated [Aspirin EC] 81 mg PO DAILY 03/15/17 [History] Cod Liver Oil 1 each PO DAILY 03/15/17 [History] Furosemide [Lasix] 20 mg PO DAILY 03/15/17 [History] Gabapentin [Neurontin] 600 mg PO TID 03/15/17 [History] Garlic 1,000 mg PO DAILY 03/15/17 [History] L. Acidophilus/Pectin, [place] [Acidophilus Probiotic Capsule] 1 each PO BID [History] Levothyroxine [Synthroid] 88 mcg PO 0630 03/15/17 [History] Lisinopril [Zestril] 10 mg PO DAILY 03/15/17 [History] Meloxicam [Mobic] 15 mg PO DAILY 03/15/17 [History] Montelukast [Singulair] 10 mg PO DAILY 03/15/17 [History] Tizanidine HCl 4 mg PO BID PRN 03/15/17 [History] Allergies metformin Allergy (Verified 03/15/17 18:02) Hives Penicillins [PCN] Allergy (Verified 03/15/17 18:02) Anaphylaxis - Meds/Allergy Pre-op Review Medications Reviewed: Yes Allergies Reviewed: Yes Beta Blockers on Current Med List: No Anesthesia Results - Labs 03/20/17 05:50 03/20/17 05:50 - Imaging EKG: report reviewed (st) Anesthesia Exam Vital Signs/O2 Sat/Glucose, Most Current Temp Pulse Resp BP Pulse Ox 03/20/17 18:50 98.9 F 94 16 109/61 97 03/20/17 16:21 17 97 Height: 1.57 Weight: 100 NPO (# of Hours): >8 - HEENT Pupil (Motor): Pupils equal, EOMI Mallampati: III Teeth: Edentulous, Poor dentition Oral Opening: Greater than 3 - MEDICAL REVIEW SPECIALIST LOC: Oriented MEDICAL REVIEW SPECIALIST Motor: Normal RUE, Normal LUE, Normal RLE, Normal LLE, Normal Face MEDICAL REVIEW SPECIALIST Sensory: Normal: RUE, LUE, RLE, LLE, Face - Cardiac Rhythm: Regular Murmur: None - Pulmonary Respiratory Effort: Symmetrical Anesthesia Assess/Plan ASA Score: 3 Modified Esther Scale for Level of Consciousness: Cooperative, oriented, and tranquil Anesthetic Plan: General Monitoring Plan: Standard Monitors Recovery Plan: PACU
[2017-03-21] MEDS: Levalbuterol 1 PUFF INHALER IH SCH ×2 (03:24→10:37)
[2017-03-21] MEDS: *HR* Heparin 5,000 UNIT/ML VIAL SQ SCH ×2 (06:35→17:34)
[2017-03-21] MEDS ORDERED: Ringers Solution, Lactated 1,000 ML IVC SCH (07:45)
[2017-03-21] MEDS ORDERED: 0.9 % Sodium Chloride 1,000 ML IVC SCH (07:45)
[2017-03-21] MEDS ORDERED: Albuterol 2.5 MG/3 ML NEBULIZER IH ONE (08:10)
[2017-03-21] MEDS ORDERED: *HR* EPINEPHrine 1 MG/10 ML SYRINGE INTRATRACH PRN (08:21)
--- NOTE | 2017-03-21 08:53 | Pulmonology Progress Note ---
Date of Encounter: 03/21/17 Time of Encounter: 08:47 Assessment and Plan (1) Abnormal chest CT Current Visit: Yes Status: Acute 77-year-old lady admitted for respiratory failure concerning for postobstructive pneumonia large left upper lobe obstructing tumor in pleural effusion drained by smallbore chest tube that appears not to be malignant. Set up with bronchoscopy today with balloon dilation of left upper lobe obstructing tumor which was partially successful and was increased will incise post procedure cytology brushings were obtained and preliminary rapid on-site cytological examination positive for non-small cell lung cancer pending official read additional forcep biopsies were taken of the lesion as well as bronchoalveolar lavage and general bronchial washings from that area Plan on completing course course of antibiotics 7 days which can be tailored to final micro-biological data Continue treatment for COPD including bronchodilators and would prescribe prednisone 40 mg for at least 5 days. She will need evaluation by oncology either as inpatient or outpatient pending final histopathological diagnosis Continue chemical DVT prophylaxis (2) DVT prophylaxis Current Visit: Yes Status: Acute Continue chemical DVT prophylaxis (3) Loculated pleural effusion Current Visit: Yes Status: Acute This is a exudative lymphocytic predominant effusion that is c/w malignancy ( lathough coplicated parapneumonic effusion not excluded) status post chest tube placement with drainage repeat CT scan pending today if effusion has resolved could likely remove chest tube later in the day additionally cytology has been sent down for analysis. There is no evidence of empyema. (4) Suspected chronic obstructive pulmonary disease based on initial evaluation Current Visit: Yes Status: Acute Present would schedule bronchodilators (short acting muscarinic agent and short acting beta agonist) every 6 hours. We will likely start a metered-dose inhaler at this admission that she can be discharged with. I reinforced again to remain tobacco free Subjective Principal diagnosis: Pleural effusion Interval history: Patient was examined in the endoscopy suite prior to planned procedure she was not complaining of any pain or difficulty breathing related or change overnight remained hemodynamically stable on a few liters of supplemental O2 via nasal cannula. Objective PUL Vital signs: Last Vital Signs Temp 97.9 F 03/21/17 07:34 Pulse 100 03/21/17 07:34 Resp 18 03/21/17 07:34 BP 154/75 03/21/17 07:34 Pulse Ox 94 03/21/17 07:34 General appearance: no acute distress Auscultation: left: diminished breath sounds Cardiovascular: regular rate and rhythm Gastrointestinal: normoactive bowel sounds normal mental status, non-focal exam mood appropriate Results - Laboratory Findings CBC and BMP: 03/20/17 05:50 03/20/17 05:50 PT/INR, D-dimer PT 14.6 Seconds (9.4-12.1) H 03/16/17 04:30 Abnormal lab findings: Abnormal lab results WBC 14.9 K/mcL (4.3-11.1) H 03/20/17 05:50 Hgb 10.6 g/dL (11.5-15.4) L 03/20/17 05:50 MCH 26.9 pg (28.0-33.3) L 03/20/17 05:50 MCHC 29.9 g/dL (31.6-35.5) L 03/20/17 05:50 RDW 16.1 % (11.5-14.5) H 03/20/17 05:50 Neutrophils # 11.2 K/mcL (1.6-8.9) H 03/20/17 05:50 Monocytes # 1.4 K/mcL (0.0-1.3) H 03/20/17 05:50 PT 14.6 Seconds (9.4-12.1) H 03/16/17 04:30 Chloride 97 mEq/L (98-109) L 03/20/17 05:50 Carbon Dioxide 34 mEq/L (19-29) H 03/20/17 05:50 Glucose 130 mg/dL (70-99) H 03/20/17 05:50 POC Glucose 172 (58-89) H 03/20/17 16:28 Albumin 2.5 g/dL (3.5-5.0) L 03/16/17 04:30 Globulin 4.7 g/dL (2.4-3.5) H 03/16/17 04:30 Albumin/Globulin Ratio 0.5 (1.1-2.2) L 03/16/17 04:30 Ur Specific [place] > 1.030 (1.010-1.025) H 03/16/17 06:00 Pleural Appearance Cloudy (Clear) A 03/16/17 09:49 Pleural RBC 0.045 M/mcL (0.000-0.002) H 03/16/17 09:49 Pleural Tot Nuc Cell 8037 TNC/mcL (0-1000) H 03/16/17 09:49 Vancomycin Trough 9.5 mcg/mL (10-20) L 03/17/17 16:14 - Microbiology Findings Microbiology Findings: Microbiology, Last 48 Hours 03/16/17 09:49 Body Fluid Culture - Final Pleural Fluid - Clinical Findings Intake & Output: Intake & Output 03/20/17 03/21/17 03/21/17 23:59 07:59 15:59 Intake Total 110 / 110 Output Total 600 / 600 600 / 600 Balance -490 / -490 -600 / -600 Weight 101.7 kg Consult Discharge Plan - Plan Referrals: Purvi Rey [Primary Care Provider] -
[2017-03-21 09:03] LABS: Source of Body Fluid LUL
--- NOTE | 2017-03-21 09:10 | Anesthesia Evaluation Post Op ---
Date of Encounter: 03/21/17 Time of Encounter: 09:10 - Vital Signs Vital Signs: Vital Signs/O2 Sat, Most Current Temp Pulse Resp BP Pulse Ox 97.8 F 106 18 149/79 93 03/21/17 08:41 03/21/17 09:01 03/21/17 09:01 03/21/17 09:01 03/21/17 09:01 - Lungs Lungs: Clear Ascult./Percussion - Airway Airway: Non-obstructed - Cardiovascular Regular Rate - Mental Status Mental Status: Alert & Oriented, Answers Appropriately - Pain Pain Scale: 0 Pain Scale used: Numeric (1 - 10) - Hydration Hydration: Ice chips, Has not voided - Discharge PostOp Status: Transfer Patient to floor
[2017-03-21 10:00] LABS: Basophils # 0.1 K/mcL (0.0-0.2); Basophils % 0.5 %; Eosinophils # 0.2 K/mcL (0.0-0.6); Eosinophils % 1.3 %; Hematocrit 36.6 % (35.3-44.9); Lymphocytes % 13.6 %; Mean Corpuscular HGB Conc 30.1 g/dL (31.6-35.5); Mean Corpuscular Hemoglobin 26.9 pg (28.0-33.3); Mean Corpuscular Volume 89.5 fL (83.0-100.0); Mean Platelet Volume 9.8 fL (9.4-12.4); Monocytes # 1.3 K/mcL (0.0-1.3); Neutrophils # 10.8 K/mcL (1.6-8.9); Platelet Count 233 K/mcL (140-400); Red Blood Count 4.09 M/mcL (3.82-4.97); Segmented Neutrophils % 74.6 %
[2017-03-21 10:12] LABS: BUN/Creatinine Ratio 23 (6-26); Blood Urea Nitrogen 15 mg/dL (7-20); Calcium 10.1 mg/dL (8.6-10.8); Carbon Dioxide 35 mEq/L (19-29); Chloride 98 mEq/L (98-109); Glucose 160 mg/dL (70-99); Magnesium 1.8 mg/dL (1.6-2.6); Osmolality,Calculated 292 (280-300); Potassium 4.3 mEq/L (3.5-4.5); Sodium 139 mEq/L (136-145); eGFR For African Americans > 60 (> 60); eGFR For Non-African Americans > 60 (> 60)
[2017-03-21] MEDS: Budesonide/Formoterol 160/4.5 MDI IH SCH ×2 (10:36→23:55)
[2017-03-21] MEDS: Furosemide 40 MG/4 ML VIAL IVP SCH ×2 (10:55→17:07)
[2017-03-21] MEDS: Levofloxacin 750 MG/150 ML 750 MG/150 ML BAG IVPB SCH (11:04)
[2017-03-21 11:30] LABS: Appearance of Body Fluid Cloudy (Clear); Volume of Body Fluid 10 mL
--- NOTE | 2017-03-21 11:30 | Internal Med Progress Note ---
Date of Encounter: 03/21/17 Time of Encounter: 11:27 - Assessment and plan (1) Acute respiratory failure Current Visit: Yes Status: Acute Assessment and plan: Secondary to loculated pleural effusion Pulmonary evaluation appreciated s/p repeat Bronchoscopy (03/21/17)-Lt Upper lobe mass, completely obstructing airway abnormality in the left upper lobe reported. Brushings were obtained and an endobronchial biopsy was performed. Preliminary cytology of the lesion in the left upper lobe was suggestive of non small cell carcinoma-final results pending will continue abx for total of 7 days, (day 6/7) started on Prednisone by pulmonology pt will likely be discharged with home oxygen will obtain physical therapy evaluation f/u oncology evaluation closely monitor O2 sat goal O2 sat>90% Qualifiers: Respiratory failure complication: unspecified whether with hypoxia or hypercapnia Qualified Code(s): J96.00 - Acute respiratory failure, unspecified whether with hypoxia or hypercapnia (2) Loculated pleural effusion Current Visit: Yes Status: Acute Assessment and plan: as listed above (3) Essential hypertension Current Visit: Yes Status: Chronic Assessment and plan: BP within acceptable range restarted home dose of Lisinopril will closely monitor (4) Type 2 diabetes mellitus Current Visit: Yes Status: Chronic Assessment and plan: BG within acceptable range will continue insulin therapy ss insulin as needed monitor FS and BG Qualifiers: Diabetes mellitus complication status: without complication Diabetes mellitus senior care insulin use: without senior care use Qualified Code(s): E11.9 - Type 2 diabetes mellitus without complications (5) Hypothyroidism Current Visit: Yes Status: Chronic Assessment and plan: continue Levothyroxine Qualifiers: Hypothyroidism type: unspecified Qualified Code(s): E03.9 - Hypothyroidism , unspecified (6) DVT prophylaxis Current Visit: Yes Status: Acute Assessment and plan: Heparin SQ - Subjective Interval history: Patient seen and examined at bedside. Resting in bed and reports of a cough. S/ P bronchoscopy (03/21/17). No overnight issues were reported. - Constitutional Vitals: Temp Pulse Resp BP Pulse Ox 98.2 F 97 18 140/69 94 03/21/17 11:06 03/21/17 11:06 03/21/17 11:06 03/21/17 11:06 03/21/17 11:06 General appearance: Present: cooperative, A&O X 3, morbidly obese, pleasant, no acute distress, answers questions appropriately - Head Head exam: Present: atraumatic, normocephalic - Eye Eye exam: Present: conjuntiva pink, sclera anicteric - Respiratory Respiratory exam: Absent: respiratory distress, wheezes (equal air entry bilaterally) - Cardiovascular Cardiovascular exam: Present: RRR, +S1, +S2. Absent: diastolic murmur, gallop, rubs, systolic murmur - GI/Abdominal GI/Abdominal exam: Present: normal bowel sounds, soft, no peritoneal signs. Absent: distended, tenderness - Extremities Exam Extremities exam: Present: warm, radial pulses palpable and symetrical. Absent : calf tenderness, pedal edema - Neurological Exam Neurological exam: Present: alert, oriented X3 - Psychiatric Psychiatric exam: Present: normal affect, normal mood Internal Medicine: Result - Labs CBC & Chem 7: 03/21/17 09:53 03/21/17 09:53 Labs: Short CBC 03/21/17 Range/Units 09:53 WBC 14.5 H (4.3-11.1) K/mcL Hgb 11.0 L (11.5-15.4) g/dL Hct 36.6 (35.3-44.9) % Plt Count 233 (140-400) K/mcL Neutrophils # 10.8 H (1.6-8.9) K/mcL BMP 03/21/17 09:53 Sodium 139 Potassium 4.3 Chloride 98 Carbon Dioxide 35 H BUN 15 Creatinine 0.66 Glucose 160 H Calcium 10.1 - ABG Interpretation ABG results: PT/INR, D-dimer PT 14.6 Seconds (9.4-12.1) H 03/16/17 04:30 Consult Discharge Plan - Plan Referrals: Purvi Rey [Primary Care Provider] -
[2017-03-21] MEDS: Lactobacillus 1 EACH CAP.SPRINK PO SCH ×2 (12:11→21:25)
[2017-03-21] MEDS: Aspirin Enteric Coated 81 MG Tablet PO SCH (12:11)
[2017-03-21] MEDS: Famotidine 20 MG TABLET PO SCH ×2 (12:11→21:25)
[2017-03-21] MEDS: Gabapentin 300 MG CAPSULE PO SCH ×3 (12:12→21:25)
[2017-03-21] MEDS: Insulin LISPRO 300 UNITS/3 ML VIAL SQ SCH ×3 (12:16→17:30)
[2017-03-21] MEDS: Ipratropium/Albuterol Neb 3 ML IH SCH ×2 (16:19→23:55)
[2017-03-21] MEDS: predniSONE 20 MG TABLET PO SCH (17:06)
[2017-03-21] MEDS: Vancomycin 1,500 MG in D5% in Water 250 ML IVPB SCH (17:08)
--- NOTE | 2017-03-21 18:36 | Oncology Inp Consult Note ---
<Daniel Bardales Jr - Last Filed: 03/21/17 18:55> Date of Encounter: 03/21/17 Time of Encounter: 17:40 Assessment and Plan (1) Non-small cell cancer of left lung Status: Suspected Assessment and plan: This is a 77 year old female admitted for loculated left pleural effusion s/p small bore chest tube. Pulmonology completed a repeat bronchoscopy 03/21/17, due to a mass completely obstructing airway of left upper lobe. Brushings were obtained and an endobronchial biopsy was performed. She had a balloon dilation of left upper lobe obstructing tumor which was partially successful. Preliminary cytology of the lesion in the left upper lobe was suggestive of non small cell carcinoma. Final pathology will take several days. The patient has no previous cancer history. Her mother had breast cancer in her late 70s, and lived for 10 years after that. Her brother is currently being treated for skin cancer that "spread to his bones". No other family members with cancer. Patient has smoked 1-2 ppd for over 40 years. I had a lengthy conversation about the etiology of non small cell versus small cell lung cancers. Non small cell tends to be less aggressive and fairly treatable if it has not metastasized outside the lung. We cannot make a determination of curative versus palliative intent until complete work up and staging is completed as an outpatient. The final pathology may take several days. I advised the patient that if we receive the results while she is still inpatient, we would go over the results together. If not, she would follow up at the cancer center with Dr Mignon Ma for complete staging of her disease, including outpatient PET scan. I gave patient my business card. She will be a patient of Dr Ma's as an outpatient. He is pharmacy operations coordinator currently. We will discuss her at our tumor boards on 03/23/[address] planning[address] Dr Ma will assess patient later today and add any additional images or testing as part of her care. (2) Loculated pleural effusion Status: Acute (3) Acute respiratory failure Status: Acute Qualifiers: Respiratory failure complication: unspecified whether with hypoxia or hypercapnia Qualified Code(s): J96.00 - Acute respiratory failure, unspecified whether with hypoxia or hypercapnia (4) Tobacco use Status: Acute - Data of Consult Patient: new to practice Consult date: 03/21/17 Requesting Physician: Laurie Tam MD Primary Care Provider: Purvi Rey - Consult Narrative Reason for consult: new left lung mass History of present illness: Ms. Thomas is a 77 year old female hospitalized with acute respiratory failure and loculated left pleural effusion. She has a past medical history of HTN, non insulin DM 2, and hypothyroidism. Patient presents to the ED with complaints of shortness of breath. She states her shortness of breath started about 2-3 weeks ago. Symptoms have gradually worsened, especially on exertion. Patient had associated non- productive cough. Denies chest pain, denies palpitations, denies headache or dizziness. No history of COPD or asthma and she is not oxygen dependent at home. She states she was diagnosed with [place] spotted fever about 1 month ago and has been on a course of doxycycline prior to admission. Patient saw PCP prior to admission, and she obtained a Chest x-ray and labs. She was advised by her primary care physician to go to the ED in view of left- sided pleural effusion. Initial evaluation of CT of the chest with contrast reveals a large loculated left pleural effusion with complete consolidation of the left upper lobe with a possible pulmonary abscess. There is also a partial consolidation of left lower lobe likely passive atelectasis. The patient states she has had this "scarring of the lung" for several years. There was initial estimate of a mucous plug or bronchial mass and left upper lobe. Pulmonology completed a repeat bronchoscopy 03/21/17, due to a mass completely obstructing airway of left upper lobe. Brushings were obtained and an endobronchial biopsy was performed. She had a balloon dilation of left upper lobe obstructing tumor which was partially successful. Preliminary cytology of the lesion in the left upper lobe was suggestive of non small cell carcinoma. Final pathology will take several days. The patient has no previous cancer history. Her mother had breast cancer in her late 70s, and lived for 10 years after that. Her brother is currently being treated for skin cancer that "spread to his bones". No other family members with cancer. Patient formerly smoked 1-2 ppd for 40 years. Oncology consulted for new left upper lobe mass, suspected to be non small cell lung cancer. Past Med Surg Social Fam HX - Past Medical History Medical history: diabetes, hypertension Psychiatric history: no psych history - Past Surgical History Surgical History: cholecystectomy, hysterectomy - Social History Smoking Status: Former smoker Smokeless Tobacco Status: No Alcohol use: none Drug use: marijuana - Family History Mother Living Status: Hx Family Cancer: Yes (Breast cancer) Father Living Status: Hx Family Cardiac Disorders: Yes Hx Family Cancer: Yes (Prostate cancer) Brother Living Status: Still Living Hx Family Cancer: Yes (skin, bone) Medications and Allergies Allopurinol [Zyloprim] 300 mg PO BID 03/15/17 [History] Aspirin Enteric Coated [Aspirin EC] 81 mg PO DAILY 03/15/17 [History] Cod Liver Oil 1 each PO DAILY 03/15/17 [History] Gabapentin [Neurontin] 600 mg PO TID 03/15/17 [History] Garlic 1,000 mg PO DAILY 03/15/17 [History] L. Acidophilus/Pectin, [place] [Acidophilus Probiotic Capsule] 1 each PO BID [History] Levothyroxine [Synthroid] 88 mcg PO 0630 03/15/17 [History] Lisinopril [Zestril] 10 mg PO DAILY 03/15/17 [History] Meloxicam [Mobic] 15 mg PO DAILY 03/15/17 [History] Montelukast [Singulair] 10 mg PO DAILY 03/15/17 [History] Tizanidine HCl 4 mg PO BID PRN 03/15/17 [History] Albuterol Sulfate [Albuterol Inhaler] 1 puff IH Q4HR PRN #1 [email or web address] 03/22/17 [Rx] Budesonide/Formoterol 160/4.5 [Symbicort 160/4.5] 2 puff IH BIDR #1 inh [Rx] Furosemide [Lasix] 40 mg PO BIDDIURETIC #60 tab 03/22/17 [Rx] predniSONE [PredniSONE] 40 mg PO DAILY #3 tab 03/22/17 [Rx] Allergies metformin Allergy (Verified 03/15/17 18:02) Hives Penicillins [PCN] Allergy (Verified 03/15/17 18:02) Anaphylaxis Constitutional: Present: fatigue Respiratory: Present: cough, dyspnea, dyspnea on exertion, excessive phlegm production Oncology - Exam - Constitutional Vitals: Temp Pulse Resp BP Pulse Ox 98.6 F 91 18 99/79 95 03/21/17 15:00 03/21/17 15:00 03/21/17 16:19 03/21/17 15:00 03/21/17 16:19 General appearance: cooperative, morbidly obese, no acute distress - Head Head exam: Present: atraumatic, normal inspection - Eye Eye exam: Present: normal appearance, PERRL - ENT ENT exam: Present: mucous membranes moist - Respiratory Respiratory exam: Present: rhonchi, wheezes - Cardiovascular Cardiovascular exam: Present: RRR, +S1, +S2 - GI/Abdominal GI/Abdominal exam: Present: normal bowel sounds, soft - Extremities Exam Extremities exam: Present: full ROM, joint swelling - Neurological Exam Neurological exam: Present: alert, oriented X3, no focal deficits - Psychiatric Psychiatric exam: Present: normal affect, normal mood - Skin Skin exam: Present: dry, intact, warm Oncology - Results - Labs Labs: Short CBC 03/21/17 Range/Units 09:53 WBC 14.5 H (4.3-11.1) K/mcL Hgb 11.0 L (11.5-15.4) g/dL Hct 36.6 (35.3-44.9) % Plt Count 233 (140-400) K/mcL Neutrophils # 10.8 H (1.6-8.9) K/mcL BMP 03/21/17 09:53 Sodium 139 Potassium 4.3 Chloride 98 Carbon Dioxide 35 H BUN 15 Creatinine 0.66 Glucose 160 H Calcium 10.1 Consult Discharge Plan - Plan Instructions: Acute Respiratory Distress Syndrome (DC), Pleural Effusion (DC) Additional Instructions: Please follow up with your primary care physician within five days after your discharge from the hospital. Please follow up with your oncologist and quality improvement analyst within one week after your discharge from the hospital. Please continue to take oral prednisone as prescribed. symbicort, lasix, and albuterol have been added to your home medications, please take these medications as prescribed. Please closely monitor your blood pressure at home. Hold your home dose of lasix and lisinopril if you are note to have systolic blood pressure less than 100. Please inform your primary care physician of the above changes. Please continue to wear oxygen at all times. Please resume all your other home medications as prescribed by your primary care physician. Referrals: Purvi Rey [Primary Care Provider] - (will see MILDRED LUCAS CNP AT SAME OFFICE FOR FOLLOW UP APPOINTMENT ON 04/05/17 AT 2:15 PM) Mildred Lucas CNP [Advanced Practice Nurse] - 04/05/17 2:15 pm Cheyanne Harp MD [Partnered Physician] - 03/28/17 3:20 pm Manuel Hernandez MD [Partnered Physician] - 03/28/17 1:30 pm Prescriptions: Albuterol Sulfate [Albuterol Inhaler] 1 puff IH Q4HR PRN #1 hfa.aer.ad PRN Reason: Shortness Of Breath Budesonide/Formoterol 160/4.5 [Symbicort 160/4.5] 2 puff IH BIDR #1 inh Furosemide [Lasix] 40 mg PO BIDDIURETIC #60 tab predniSONE [PredniSONE] 40 mg PO DAILY #3 tab <Mignon Ma S - Last Filed: 03/22/17 17:58> Date of Encounter: 03/22/17 - Data of Consult Requesting Physician: Laurie Tam MD Primary Care Provider: Purvi Rey - Consult Narrative History of present illness: Ms. Thomas is a 77 year old female Oncology - Exam - Constitutional Vitals: Temp Pulse Resp BP Pulse Ox 98.2 F 96 18 121/62 95 03/22/17 11:15 03/22/17 11:15 03/22/17 16:04 03/22/17 11:15 03/22/17 16:04 Oncology - Results - Labs Labs: Short CBC 03/22/17 Range/Units 04:23 WBC 14.1 H (4.3-11.1) K/mcL Hgb 10.9 L (11.5-15.4) g/dL Hct 36.6 (35.3-44.9) % Plt Count 246 (140-400) K/mcL Neutrophils # 11.6 H (1.6-8.9) K/mcL BMP 03/22/17 04:23 Sodium 139 Potassium 4.3 Chloride 96 L Carbon Dioxide 36 H BUN 16 Creatinine 0.64 Glucose 175 H Calcium 10.5 - Attending Attestation 1. Left upper lobe mass concerning for lung cancer. Biopsy done and results pending CT scan of the chest showed complete collapse of the left upper lobe. The focal low density throughout the left upper lobe measuring at least up to 4.9 x 4.2 cm is largely stable. 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 This did not improve her breathing She does have significant cough from obstruction Moderate pleural effusion post thoracostomy tube drainage Will complete staging with PET scan and MRI brain Patient does have medically significant obesity and borderline lung function. Once stabilized would consider PFT Treatment recommendation after pathology results and staging workup. Will Discuss at tumor conference
[2017-03-21] MEDS ORDERED: Insulin LISPRO 300 UNITS/3 ML VIAL SQ SCH (21:00)
[2017-03-22 04:52] LABS: Basophils % 0.3 %; Hematocrit 36.6 % (35.3-44.9); Hemoglobin 10.9 g/dL (11.5-15.4); Immature Granulocytes % 1.1 % (0-4); Lymphocytes # 1.5 K/mcL (0.6-4.6); Lymphocytes % 10.9 %; Mean Corpuscular HGB Conc 29.8 g/dL (31.6-35.5); Mean Corpuscular Hemoglobin 26.6 pg (28.0-33.3); Mean Corpuscular Volume 89.3 fL (83.0-100.0); Mean Platelet Volume 9.8 fL (9.4-12.4); Monocytes # 0.8 K/mcL (0.0-1.3); Monocytes % 5.5 %; Neutrophils # 11.6 K/mcL (1.6-8.9); Platelet Count 246 K/mcL (140-400); Red Cell Distribution Width 16.1 % (11.5-14.5); Segmented Neutrophils % 82.2 %
[2017-03-22] MEDS: Vancomycin 1,500 MG in D5% in Water 250 ML IVPB SCH (05:02)
[2017-03-22 05:04] LABS: BUN/Creatinine Ratio 25 (6-26); Blood Urea Nitrogen 16 mg/dL (7-20); Calcium 10.5 mg/dL (8.6-10.8); Carbon Dioxide 36 mEq/L (19-29); Chloride 96 mEq/L (98-109); Glucose 175 mg/dL (70-99); Osmolality,Calculated 293 (280-300); Phosphorous 4.4 mg/dL (2.3-4.7); Potassium 4.3 mEq/L (3.5-4.5); Sodium 139 mEq/L (136-145); eGFR For African Americans > 60 (> 60); eGFR For Non-African Americans > 60 (> 60)
[2017-03-22] MEDS: *HR* Heparin 5,000 UNIT/ML VIAL SQ SCH (05:06)
[2017-03-22] MEDS: Ipratropium/Albuterol Neb 3 ML IH SCH ×3 (05:27→16:04)
[2017-03-22] MEDS: Famotidine 20 MG TABLET PO SCH (09:06)
[2017-03-22] MEDS: Gabapentin 300 MG CAPSULE PO SCH ×2 (09:06→14:10)
[2017-03-22] MEDS: Insulin LISPRO 300 UNITS/3 ML VIAL SQ SCH ×3 (09:07→16:09)
[2017-03-22] MEDS: Aspirin Enteric Coated 81 MG Tablet PO SCH (09:07)
[2017-03-22] MEDS: predniSONE 20 MG TABLET PO SCH (09:07)
[2017-03-22] MEDS: Furosemide 40 MG/4 ML VIAL IVP SCH (09:07)
[2017-03-22] MEDS: Lactobacillus 1 EACH CAP.SPRINK PO SCH (09:07)
[2017-03-22] MEDS: Levofloxacin 750 MG/150 ML 750 MG/150 ML BAG IVPB SCH (09:08)
--- NOTE | 2017-03-22 10:40 | Discharge Summary ---
Date of Encounter: 03/22/17 Time of Encounter: 10:39 - Discharge Diagnosis (1) Acute respiratory failure Priority: Primary Status: Acute Qualifiers: Respiratory failure complication: unspecified whether with hypoxia or hypercapnia Qualified Code(s): J96.00 - Acute respiratory failure, unspecified whether with hypoxia or hypercapnia (2) Loculated pleural effusion Priority: Primary Status: Acute (3) Essential hypertension Priority: Secondary Status: Chronic (4) Type 2 diabetes mellitus Priority: Secondary Status: Chronic Qualifiers: Diabetes mellitus complication status: without complication Diabetes mellitus shelter insulin use: without shelter use Qualified Code(s): E11.9 - Type 2 diabetes mellitus without complications (5) Hypothyroidism Priority: Secondary Status: Chronic Qualifiers: Hypothyroidism type: unspecified Qualified Code(s): E03.9 - Hypothyroidism , unspecified (6) DVT prophylaxis Priority: Secondary Status: Acute - Discharge Medications Prescriptions: Albuterol Sulfate [Albuterol Inhaler] 1 puff IH Q4HR PRN #1 hfa.aer.ad PRN Reason: Shortness Of Breath Budesonide/Formoterol 160/4.5 [Symbicort 160/4.5] 2 puff IH BIDR #1 inh Furosemide [Lasix] 40 mg PO BIDDIURETIC #60 tab predniSONE [PredniSONE] 40 mg PO DAILY #3 tab Home Medications: Allopurinol [Zyloprim] 300 mg PO BID 03/15/17 [History] Aspirin Enteric Coated [Aspirin EC] 81 mg PO DAILY 03/15/17 [History] Cod Liver Oil 1 each PO DAILY 03/15/17 [History] Gabapentin [Neurontin] 600 mg PO TID 03/15/17 [History] Garlic 1,000 mg PO DAILY 03/15/17 [History] L. Acidophilus/Pectin, [place] [Acidophilus Probiotic Capsule] 1 each PO BID [History] Levothyroxine [Synthroid] 88 mcg PO 0630 03/15/17 [History] Lisinopril [Zestril] 10 mg PO DAILY 03/15/17 [History] Meloxicam [Mobic] 15 mg PO DAILY 03/15/17 [History] Montelukast [Singulair] 10 mg PO DAILY 03/15/17 [History] Tizanidine HCl 4 mg PO BID PRN 03/15/17 [History] Albuterol Sulfate [Albuterol Inhaler] 1 puff IH Q4HR PRN #1 hfa.aer.ad 03/22/17 [Rx] Budesonide/Formoterol 160/4.5 [Symbicort 160/4.5] 2 puff IH BIDR #1 inh [Rx] Furosemide [Lasix] 40 mg PO BIDDIURETIC #60 tab 03/22/17 [Rx] predniSONE [PredniSONE] 40 mg PO DAILY #3 tab 03/22/17 [Rx] Allergies/Adverse Reactions: Allergies metformin Allergy (Verified 03/15/17 18:02) Hives Penicillins [PCN] Allergy (Verified 03/15/17 18:02) Anaphylaxis Date of admission: 03/15/17 22:10 Primary care physician: Purvi Rey Consults: 03/15/17 23:19 Consult to Pulmonology [CONS] Routine Consulting Provider: [facility] Reason for Consult: Bronchoscopy, mucus plug, large pleural effusion Call Completed: No 03/15/17 23:24 Consult to Team Assistant [CONS] Routine Reason for SW Consult: d/c planning 03/15/17 23:25 Consult to Physical Therapy [CONS] Routine Comment: Evaluate, develop and implement POC Reason for Consult: PT eval 03/16/17 07:49 Consult to Interventional Radiology [CONS] Routine Consulting Provider: Radiology Interventional [facility] Reason for Consult: parapneum onic pleural effusion left chest, needs small bore chest tube Time Notified: 07:50 Call Completed: No 03/21/17 11:33 Consult to Occupational Therapy [CONS] Routine Comment: Evaluate, develop and implement POC Reason for Consult: EVAL FOR POSS ECF 03/21/17 13:20 Consult to Oncology [CONS] Routine Consulting Provider: Oncology [facility] Reason for Consult: newly diagnosed lung ca Call Completed: Yes Discharging clinician: Laurie Tam Anticipated date of discharge: 03/22/17 - Patient Status Disposition: Home Health Service Condition: Fair Functional capacity at discharge: uses cane/walker Overall status at discharge: patient is back to baseline - Discharge Instructions Follow Up With: Purvi Rey [Primary Care Provider] - Additional Instructions: Please follow up with your primary care physician within five days after your discharge from the hospital. Please follow up with your oncologist and director of casework within one week after your discharge from the hospital. Please continue to take oral prednisone as prescribed. symbicort, lasix, and albuterol have been added to your home medications, please take these medications as prescribed. Please closely monitor your blood pressure at home. Hold your home dose of lasix and lisinopril if you are note to have systolic blood pressure less than 100. Please inform your primary care physician of the above changes. Please continue to wear oxygen at all times. Please resume all your other home medications as prescribed by your primary care physician. - Diet and Activity Activity: as per physical therapy, wear oxygen at all times Diet: diabetic diet, low salt diet Hospital course: Ms. Thomas is a 77 year old female with PMH of DM, HTN, hypothyrodisim who was admitted for acute respiratory failure secondary to loculated pleural effusion. patient was followed by pulmonology and underwent bronchoscopy, which was concerning for malignancy due to which she underwent 2nd bronchoscopy under general anesthesia. She was found to have left upper lobe mass concerning for non small cell carcinoma. Patient was followed by oncology and outpatient follow up with recommended once cytology results are available. Pt continued to remain O2 dependent and will be discharged to home with o2 therapy. She was started on steroids (prednisone) by pulmonology and finish her five day therapy at home. She was evaluated by physical therapy and home health was recommended. at this time patient is hemodynamically stable and will be discharged to home with follow up with pcp, oncology, and pulmonology. Pt demonstrates understanding of her diagnosis and agrees with the discharge care and plan. - Time Spent with Patient Total time spent providing and/or coordinating discharge services: Greater than 30 minutes - Constitutional Vitals: Temp Pulse Resp BP Pulse Ox 98.0 F 87 18 139/70 95 03/22/17 07:08 03/22/17 07:08 03/22/17 07:08 03/22/17 07:08 03/22/17 07:52 General appearance: Present: cooperative, A&O X 3, morbidly obese, pleasant, no acute distress, answers questions appropriately - Head Head exam: Present: atraumatic, normocephalic - Eye Eye exam: Present: conjuntiva pink, sclera anicteric - Respiratory Respiratory exam: Absent: respiratory distress, wheezes - Cardiovascular Cardiovascular exam: Present: RRR, +S1, +S2. Absent: diastolic murmur, gallop, rubs, systolic murmur - GI/Abdominal GI/Abdominal exam: Present: normal bowel sounds, soft, no peritoneal signs. Absent: distended, tenderness - Extremities Exam Extremities exam: Present: warm, radial pulses palpable and symetrical. Absent : calf tenderness, cyanotic, pedal edema - Neurological Exam Neurological exam: Present: alert, oriented X3 - Psychiatric Psychiatric exam: Present: normal affect, normal mood
--- NOTE | 2017-03-22 10:58 | Event Note ---
Date of Encounter: 03/22/17 Time of Encounter: 10:57 I saw Fernanda in her room she was completing physical therapy no untoward effects status post bronchoscopy she understands that her laboratory results is consistent with non-small cell lung cancer oncology has also been consulted and she has a follow-up appointment with them plan is for discharge later in the day from pulmonary perspective this is reasonable.
[2017-03-22] MEDS: Budesonide/Formoterol 160/4.5 MDI IH SCH (11:06)
[2017-03-22 11:20] VITALS: BP 121/62
--- NOTE | 2017-03-22 14:06 | Physician Discharge Referral ---
Home Health/Hosp Referral Info Transfer to: Home Health Provider in Charge Post Discharge: PCP - Diagnosis (1) Acute respiratory failure Priority: Primary Status: Acute (2) Loculated pleural effusion Priority: Primary Status: Acute (3) Essential hypertension Priority: Secondary Status: Chronic (4) Type 2 diabetes mellitus Priority: Secondary Status: Chronic (5) Hypothyroidism Priority: Secondary Status: Chronic (6) DVT prophylaxis Priority: Secondary Status: Acute - Respiratory Orders Smoking Cessation: Smoking cessation has been advised. For more information, call the [place] Tobacco Quit Line at 5-741-SSLR-NOW. - Services Needed Following services are medically necessary services: Nursing, Home Health Aide, Physical Therapy, Occupational Therapy - Transfer Medications Prescriptions: Albuterol Sulfate [Albuterol Inhaler] 1 puff IH Q4HR PRN #1 hfa.aer.ad PRN Reason: Shortness Of Breath Budesonide/Formoterol 160/4.5 [Symbicort 160/4.5] 2 puff IH BIDR #1 inh Furosemide [Lasix] 40 mg PO BIDDIURETIC #60 tab predniSONE [PredniSONE] 40 mg PO DAILY #3 tab Home Medications: Allopurinol [Zyloprim] 300 mg PO BID 03/15/17 [History] Aspirin Enteric Coated [Aspirin EC] 81 mg PO DAILY 03/15/17 [History] Cod Liver Oil 1 each PO DAILY 03/15/17 [History] Gabapentin [Neurontin] 600 mg PO TID 03/15/17 [History] Garlic 1,000 mg PO DAILY 03/15/17 [History] L. Acidophilus/Pectin, [place] [Acidophilus Probiotic Capsule] 1 each PO BID [History] Levothyroxine [Synthroid] 88 mcg PO 0630 03/15/17 [History] Lisinopril [Zestril] 10 mg PO DAILY 03/15/17 [History] Meloxicam [Mobic] 15 mg PO DAILY 03/15/17 [History] Montelukast [Singulair] 10 mg PO DAILY 03/15/17 [History] Tizanidine HCl 4 mg PO BID PRN 03/15/17 [History] Albuterol Sulfate [Albuterol Inhaler] 1 puff IH Q4HR PRN #1 hfa.aer.ad 03/22/17 [Rx] Budesonide/Formoterol 160/4.5 [Symbicort 160/4.5] 2 puff IH BIDR #1 inh [Rx] Furosemide [Lasix] 40 mg PO BIDDIURETIC #60 tab 03/22/17 [Rx] predniSONE [PredniSONE] 40 mg PO DAILY #3 tab 03/22/17 [Rx] Allergies/Adverse Reactions: Allergies metformin Allergy (Verified 03/15/17 18:02) Hives Penicillins [PCN] Allergy (Verified 03/15/17 18:02) Anaphylaxis Certification: Further, I certify that my clinical findings support that this patient is homebound (i.e. absences from home require considerable and taxing effort and are for medical reasons or congregational services or infrequently or short duration when for other reasons) because: Homebound Reason: Patient requires assistance of a person or device to safely leave home Attestation: My signature below is to certify that this patient is under my care and that I, or nurse practitioner, or a physician's retail sales assistant working with me, has a face-to -face encounter with this patient.
[2017-03-22] MEDS ORDERED: *HR* Propofol 500 MG/50 ML BOTTLE IVC ONE (14:42)
[2017-03-22] MEDS ORDERED: Furosemide 40 MG TABLET PO SCH (17:00)
[2017-03-22] MEDS ORDERED: *HR* Propofol 200 MG/20 ML VIAL IVP ONE (17:46)
[2017-03-22] MEDS ORDERED: *HR* Succinylcholine 200 MG/10 ML VIAL IVP ONE (17:46)
[2017-03-22] MEDS ORDERED: Aminoglycoside Consult 1 EACH MC ONE (17:46)
[2017-03-22] MEDS ORDERED: Lidocaine -MPF 2% 5 ML VIAL INFILT ONE (17:46)
[2017-03-22] MEDS ORDERED: Ondansetron 4 MG/2 ML VIAL IVP ONE (17:46)
[2017-03-22] MEDS ORDERED: Lidocaine -MPF 4% 5 ML AMPUL INFILT ONE (17:46)
== END 2017-03-22 17:47 | disposition home health service (06) | DRG 180 ==
LOC: EMEROO 17:54 → 2NENU 17:54
PROVIDERS: ADMIT Internal Medicine; ATTEND Internal Medicine
PROC: ENDOLBX (2017-03-21 08:00)

== ENCOUNTER 2017-09-27 16:59 | Inpatient (IN) ==
[2017-09-27] MEDS ORDERED: Naloxone 0.4 MG/ML INJ IVP PRN (21:17)
[2017-09-27] MEDS ORDERED: D5% in Water 1,000 ML IVC PRN (21:21)
[2017-09-27] MEDS ORDERED: *HR* Dextrose 50 % in Water (Syg) 50 ML SYRINGE IVP PRN (21:21)
[2017-09-27] MEDS ORDERED: Dextrose Gel 15 GM/37.5 ML TUBE PO PRN ×2 (21:21)
[2017-09-27] MEDS ORDERED: *HR* OxyCODONE Immed Rel 5 MG TABLET PO PRN (21:22)
[2017-09-27] MEDS ORDERED: Ondansetron ODT 4 MG TAB.RAPDIS PO PRN (21:22)
[2017-09-27] MEDS ORDERED: Benzonatate 100 MG CAPSULE PO PRN (21:22)
--- NOTE | 2017-09-27 21:39 | Internal Med History&Physical ---
Date of Encounter: 09/27/17 Time of Encounter: 20:30 Assessment and Plan (1) Abnormal chest CT Current visit: No Status: Acute CT shows left side chest cavity with suspected bronchopleural effusion. WBC high. - Will treat pt with levaquin and flagyl - Consult pulmonology in AM. (2) DVT prophylaxis Current visit: No Status: Acute Heparin sc (3) Non-small cell carcinoma of lung Current visit: No Status: Acute Pt is following with oncology and had chemo and radiation therapy. Cont outpatient follow up. (4) Pleural effusion Current visit: No Status: Acute Possibly due to lung cancer. Will consult pulmonology. (5) Hypothyroidism Current visit: No Status: Chronic cont home meds. Qualifiers: Hypothyroidism type: unspecified Qualified Code(s): E03.9 - Hypothyroidism , unspecified (6) Type 2 diabetes mellitus Current visit: No Status: Chronic Place pt on sliding scale insulin. Qualifiers: Diabetes mellitus complication status: without complication Diabetes mellitus watermaster insulin use: without group home use Qualified Code(s): E11.9 - Type 2 diabetes mellitus without complications (7) Pneumonia Current visit: No Status: Suspected CXR shows left side near white out, pt has left lung ca, consider obstructive pneumonia vs. bronchopleural fistula vs cavity infection. - Place pt on levaquin and flagyl. - Pt doesn't meet criteria of sepsis. - Consult pulmonology in am Qualifiers: Pneumonia type: due to unspecified organism Laterality: left Lung location: unspecified part of lung Qualified Code(s): J18.9 - Pneumonia, unspecified organism Internal Medicine - H&P: HPI Chief complaint: Low BP Admitted From: Home Plans for Post Hospital Care: Home History of present illness: Ms. 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 Pt said she went to ER because she has low BP to 88/44 and she feels mild lightheaded. Pt measure BP at home by herself. Pt denies fever, runny nose, or sore throat. She has chronic cough but radha there is no worsening. She has mild SOB but at her baseline. Pt has recent chemo but generally has adequate intake. She denies diarrhea or urination symptoms. In [facility] ER, she was found leukocytosis with WBC 14.5 K. CXR shows left lung near complete white out. Further CT chest show left pleural effusion, cavity, and cannot r/o bronchopleural fistula. Pt was treated with vanco 1g, solumendral 125 mg, duoneb x 1, and bolus NS 1000ml in [place] per documentation. Pt was transferred to our hospital for further management. When I saw pt in 2N-1, her vitals are stable, BP 125/65. Pt is not in acute distress. Past Med Surg Social Fam HX - Past Medical History Medical history: diabetes, hypertension Psychiatric history: no psych history - Past Surgical History Surgical History: cholecystectomy, hysterectomy - Social History Smoking Status: Former smoker Smokeless Tobacco Status: No Alcohol use: none Drug use: none - Family History Mother Family Member Ethnicity: Non- Living Status: Hx Family Cancer: Yes (Breast, Renal) Hx Family Endocrine Disorder: Yes (DM, Thyroid disease) Father Family Member Ethnicity: Non- Living Status: Hx Family Cardiac Disorders: Yes (HD) Hx Family Cancer: Yes (Prostate cancer) Brother Family Member Ethnicity: Non- Living Status: Still Living Hx Family Cardiac Disorders: No Hx Family Respiratory Disorders: No Hx Family Cancer: Yes (skin, bone) Hx Family GI Disorders: No Hx Family Endocrine Disorder: No Hx Family Neuromuscular Disorders: No Hx Family Neurologic Disorders: No Hx Family HEENT Disorders: No Hx Family Autoimmune Disorders: No Internal Medicine - H&P: Meds Allopurinol [Zyloprim] 300 mg PO BID 03/15/17 [History] Cod Liver Oil 1 each PO DAILY 03/15/17 [History] Gabapentin [Neurontin] 600 mg PO TID 03/15/17 [History] Garlic 1,000 mg PO DAILY 03/15/17 [History] L. Acidophilus/Pectin, [employer] [Acidophilus Probiotic Capsule] 1 each PO BID [History] Levothyroxine [Synthroid] 88 mcg PO 0630 03/15/17 [History] Meloxicam [Mobic] 15 mg PO DAILY 03/15/17 [History] Albuterol Sulfate [Albuterol Inhaler] 1 puff IH Q4HR PRN #1 hfa.aer.ad 03/22/17 [Rx] Budesonide/Formoterol 160/4.5 [Symbicort 160/4.5] 2 puff IH BIDR #1 inh [Rx] glyBURIDE [GlyBURIDE] 5 mg PO BID 04/27/17 [History] Benzonatate [Tessalon] 100 mg PO TID PRN #60 capsule 06/18/17 [Rx] Docusate Sodium [Colace] 100 mg PO BID PRN 06/18/17 [History] GuaiFENesin ER [Mucinex] 600 mg PO BID #60 tbbp.12hr 06/18/17 [Rx] OxyCODONE Immed Rel [Roxicodone 5 MG] 5 mg PO Q8HR PRN #90 tablet 06/18/17 [Rx] Ondansetron [Zofran] 8 mg PO Q8HR PRN #90 tablet 07/06/17 [Rx] 3 Allergy/AdvReac Type Severity Reaction Status Date / Time metformin Allergy Hives Verified 07/06/17 14:17 Penicillins [PCN] Allergy Anaphylaxis Verified 07/06/17 14:17 All Systems PM: A 10-system review of systems was performed and is negative for pertinent findings except as documented above in the HPI. - Constitutional Vitals: Temp Pulse Resp BP Pulse Ox 98.1 F 94 19 125/65 96 09/27/17 20:24 09/27/17 20:24 09/27/17 20:24 09/27/17 20:24 09/27/17 20:24 General appearance: Present: A&O X 3, no acute distress, answers questions appropriately - Head Head exam: Present: atraumatic, normocephalic - Eye Eye exam: Present: PERRL, conjuntiva pink, sclera anicteric Pupils: Present: PERRL - Neck Neck exam general surgery: Present: supple, trachea midline. Absent: lymphadenopathy - Respiratory Respiratory exam: Present: decreased breath sounds (On left side), CTAB. Absent : accessory muscle use, rales, rhonchi, wheezes - Cardiovascular Cardiovascular exam: Present: RRR, +S1, +S2. Absent: diastolic murmur, gallop, rubs, systolic murmur - GI/Abdominal GI/Abdominal exam: Present: normal bowel sounds, soft, no peritoneal signs. Absent: distended, tenderness - Extremities Exam Extremities exam: Present: warm, radial pulses palpable and symmetrical. Absent : calf tenderness, cyanotic, pedal edema - Neurological Exam Neurological exam: Present: CN II-XII intact, oriented X3, no focal deficits. Absent: pronater drift, facial droop, speech deficit - Skin Skin exam: Present: dry, intact Internal Med - H&P Results - EKG Data -: EKG Interpreted by Myself EKG shows normal: sinus rhythm Rate: normal
[2017-09-27] MEDS: Levofloxacin 750 MG/150 ML 750 MG/150 ML BAG IVPB SCH (21:47)
[2017-09-27] MEDS ORDERED: Insulin LISPRO 300 UNITS/3 ML VIAL SQ ONE (22:13)
[2017-09-27] MEDS ORDERED: 0.9 % Sodium Chloride 1,000 ML IVC SCH (22:15)
[2017-09-27] MEDS: Budesonide/Formoterol 160/4.5 MDI IH SCH (22:52)
[2017-09-28] MEDS: MetroNIDAZOLE 500 MG/100 ML 500 MG/100 ML BAG IVPB SCH ×2 (00:44→07:48)
[2017-09-28] MEDS: *HR* Heparin 5,000 UNIT/ML VIAL SQ SCH ×2 (06:13→17:42)
[2017-09-28 06:45] LABS: Basophils # 0.1 K/mcL (0.0-0.2); Basophils % 0.3 %; Hematocrit 28.9 % (35.3-44.9); Hemoglobin 8.7 g/dL (11.5-15.4); Immature Granulocytes % 2.4 % (0-4); Lymphocytes % 5.5 %; Mean Corpuscular HGB Conc 30.1 g/dL (31.6-35.5); Mean Corpuscular Hemoglobin 27.3 pg (28.0-33.3); Mean Corpuscular Volume 90.6 fL (83.0-100.0); Mean Platelet Volume 9.9 fL (9.4-12.4); Monocytes % 5.4 %; Neutrophils # 15.3 K/mcL (1.6-8.9); Nucleated Red Blood Cells 0.1 /100 WBC (0); Platelet Count 160 K/mcL (140-400); Red Blood Count 3.19 M/mcL (3.82-4.97); Red Cell Distribution Width 18.2 % (11.5-14.5); Segmented Neutrophils % 86.4 %
[2017-09-28 07:09] LABS: BUN/Creatinine Ratio 47 (6-26); Blood Urea Nitrogen 20 mg/dL (8-23); Calcium 8.9 mg/dL (8.6-10.3); Carbon Dioxide 30 mEq/L (23-29); Chloride 102 mEq/L (98-107); Glucose 165 mg/dL (70-105); Osmolality,Calculated 290 (280-300); Potassium 4.5 mEq/L (3.5-5.1); Sodium 137 mEq/L (136-145); eGFR For African Americans > 60 (> 60); eGFR For Non-African Americans > 60 (> 60)
[2017-09-28] MEDS: Insulin LISPRO 300 UNITS/3 ML VIAL SQ SCH ×3 (07:41→15:57)
[2017-09-28] MEDS: Lactobacillus 1 EACH CAP.SPRINK PO SCH ×3 (07:56→20:48)
[2017-09-28] MEDS: Gabapentin 300 MG CAPSULE PO SCH ×4 (07:57→20:48)
[2017-09-28 08:15] LABS: Platelet Estimate Normal (Normal)
[2017-09-28] MEDS: Budesonide/Formoterol 160/4.5 MDI IH SCH ×2 (08:21→20:11)
--- NOTE | 2017-09-28 10:01 | Pulmonology Consult Note ---
Date of Encounter: 09/28/17 Time of Encounter: 07:30 Assessment and Plan (1) Collapse of left lung Current Visit: Yes Status: Acute Patient has history of non -small cell ca consistent with Squamous cell Lung Ca s/p chemoradiation patient is followed by at Cancer center now coming with left main stem endobronchial lesion which is occluding the whole left lung , reviewed the CT scan from [facility] and the Ct scan in July 2017 the last 2016 scan showed [place] necrotic mass and with obstruction of left upper lobe and the left lower lobe was getting obstructed it looks like the mass has progressed to fill the Left main stem bronchus collapsing the whole lung since patient didnt have any symptoms most likely this process is chronic . Spoke with our interventional [employer] field technician since there is no extrinsic compression all are endobronchial obstruction with 100% occlusion and the collapsed lung looks chronic opening up the airway doesnt benefit openig up the lung comparing the imaging looks like this progression of the primary tumour discussed the case with Oncology . (2) Non-small cell cancer of left lung Current Visit: No Status: Chronic Progression of squamous cell ca now obstructing the left main stem bronchus (3) COPD (chronic obstructive pulmonary disease) Current Visit: Yes Status: Acute Doesnt look like she is in COPD exacerbation will continue prn DIDI/AMEE prn . No evidence clinical or imaging evidence of pneumonia . Qualifiers: Emphysema type: centrilobular Qualified Code(s): J43.2 - Centrilobular emphysema History of Present Illness Consult date: 09/28/17 Requesting physician: Funmilayo Schaffer Reason for consult: other (Left Lung Collapse) Chief complaint: Dizziness History of present illness: 77 year old female with past medical history of COPD quit smoking , Non small cell carcinoma of the left lung was initially obstructing left upper lobe this was diagnosed last year around February and March had a balloon dilatation when the lesion was obstructing the left upper lobe after that she underwent chemo radiation yesterday she presented to [facility] ER with dizziness found to be hypotensive but she quickly turned around with fluids . Patient denies any chest pain or any undue shortness of breadth , denies any cough and sputum production , denies any fever or chills ,denies any chest pain or tightness , denies any other constitutional symptoms , denies any headache or any other focal neurological symptoms . Pulmonary was consulted for Left lung white out. Past Med Surg Social Fam HX - Past Medical History Medical history: diabetes, hypertension Psychiatric history: no psych history - Past Surgical History Surgical History: cholecystectomy, hysterectomy - Social History Smoking Status: Former smoker Smokeless Tobacco Status: No Alcohol use: none Drug use: none - Family History Mother Family Member Ethnicity: Non- Living Status: Hx Family Cancer: Yes (Breast, Renal) Hx Family Endocrine Disorder: Yes (DM, Thyroid disease) Father Family Member Ethnicity: Non- Living Status: Hx Family Cardiac Disorders: Yes (HD) Hx Family Cancer: Yes (Prostate cancer) Brother Family Member Ethnicity: Non- Living Status: Still Living Hx Family Cardiac Disorders: No Hx Family Respiratory Disorders: No Hx Family Cancer: Yes (skin, bone) Hx Family GI Disorders: No Hx Family Endocrine Disorder: No Hx Family Neuromuscular Disorders: No Hx Family Neurologic Disorders: No Hx Family HEENT Disorders: No Hx Family Autoimmune Disorders: No Medications and Allergies Allopurinol [Zyloprim] 300 mg PO BID 03/15/17 [History] Cod Liver Oil 1 each PO DAILY 03/15/17 [History] Gabapentin [Neurontin] 600 mg PO TID 03/15/17 [History] Garlic 1,000 mg PO DAILY 03/15/17 [History] Levothyroxine [Synthroid] 88 mcg PO 0630 03/15/17 [History] Meloxicam [Mobic] 15 mg PO DAILY 03/15/17 [History] Albuterol Sulfate [Albuterol Inhaler] 1 puff IH Q4HR PRN #1 hfa.aer.ad 03/22/17 [Rx] Budesonide/Formoterol 160/4.5 [Symbicort 160/4.5] 2 puff IH BIDR #1 inh [Rx] glyBURIDE [GlyBURIDE] 5 mg PO BID 04/27/17 [History] Docusate Sodium [Colace] 100 mg PO BID PRN 06/18/17 [History] Montelukast [Singulair] 10 mg PO DAILY 09/28/17 [History] 3 Allergy/AdvReac Type Severity Reaction Status Date / Time metformin Allergy Hives Verified 07/06/17 14:17 Penicillins [PCN] Allergy Anaphylaxis Verified 07/06/17 14:17 All Systems: All other systems were reviewed was found to be negative Physical Examination Vital Signs: Vital Signs, Last 4 Hours Temp Pulse Resp BP Pulse Ox 09/28/17 08:21 18 98 09/28/17 07:57 82 09/28/17 06:49 97.9 F 83 18 164/80 98 Auscultation: left: diminished breath sounds Results - Laboratory Findings CBC and BMP: 09/28/17 06:23 09/28/17 06:23 Abnormal lab findings: Abnormal lab results WBC 17.7 K/mcL (4.3-11.1) H 09/28/17 06:23 RBC 3.19 M/mcL (3.82-4.97) L 09/28/17 06:23 Hgb 8.7 g/dL (11.5-15.4) L 09/28/17 06:23 Hct 28.9 % (35.3-44.9) L 09/28/17 06:23 MCH 27.3 pg (28.0-33.3) L 09/28/17 06:23 MCHC 30.1 g/dL (31.6-35.5) L 09/28/17 06:23 RDW 18.2 % (11.5-14.5) H 09/28/17 06:23 Neutrophils # 15.3 K/mcL (1.6-8.9) H 09/28/17 06:23 Nucleated RBCs/100 WBC 0.1 /100 WBC (0) H 09/28/17 06:23 Carbon Dioxide 30 mEq/L (23-29) H 09/28/17 06:23 Creatinine 0.43 mg/dL (0.60-1.20) L 09/28/17 06:23 BUN/Creatinine Ratio 47 (6-26) H 09/28/17 06:23 Glucose 165 mg/dL (70-105) H 09/28/17 06:23 POC Glucose 455 (58-89) H* 09/27/17 20:19 - Clinical Findings Intake & Output: Intake & Output 09/27/17 09/28/17 09/28/17 23:59 07:59 15:59 Intake Total 0 / 0 250 / 250 100 / 100 Output Total 150 / 150 600 / 600 Balance -150 / -150 -350 / -350 100 / 100 Weight 91.2 kg 92.4 kg Consult Discharge Plan - Plan Referrals: Purvi Rey [Primary Care Provider] - 10/24/17 12:30 pm (Please fax discharge information to [phone])
[2017-09-28] MEDS: Levofloxacin 750 MG/150 ML 750 MG/150 ML BAG IVPB SCH (10:08)
--- NOTE | 2017-09-28 11:52 | Internal Med Progress Note ---
Date of Encounter: 09/28/17 Time of Encounter: 11:49 - Assessment and plan (1) Abnormal chest CT Current Visit: No Status: Acute Assessment and plan: seen by pulmonary forl eft-sided chest bronchial lesionwith left lung white out. No intervention per pulmonary. Patient is not in any respirator We will continue to monitor. (2) Pneumonia Current Visit: No Status: Suspected Assessment and plan: started on levaquin/flagyl. will d/c flagyl. check sputum cultures. check urine strep and legionella. On her baseline O2 needs. c/w nebs. Qualifiers: Pneumonia type: due to unspecified organism Laterality: left Lung location: unspecified part of lung Qualified Code(s): J18.9 - Pneumonia, unspecified organism (3) Diabetes mellitus Current Visit: Yes Status: Acute Assessment and plan: glucose was elevated initially. currently it is much better control. We will continue with insulin sliding scale. Continue with Accu-Cheks Qualifiers: Diabetes mellitus type: type 2 Diabetes mellitus complication status: without complication Diabetes mellitus half-way insulin use: without terminologist use Qualified Code(s): E11.9 - Type 2 diabetes mellitus without complications (4) Non-small cell carcinoma of lung Current Visit: No Status: Acute Assessment and plan: Will consult oncologyt (5) Essential hypertension Current Visit: No Status: Chronic Assessment and plan: blood pressure was low on admission. She received IV fluids. Current blood pressure is in the 150. We will continue to monitor. (6) Hypothyroidism Current Visit: No Status: Chronic Assessment and plan: continue levthyroxine Qualifiers: Hypothyroidism type: unspecified Qualified Code(s): E03.9 - Hypothyroidism , unspecified (7) DVT prophylaxis Current Visit: No Status: Acute Assessment and plan: heparin subcutaneous - Subjective Interval history: Patient was seen and examined. She was admitted with hypotension and headaches which seems to be a non issue at the moment. She presented to [facility] where work up showed Left lung white out. She has a h/o metastatic lung cancer and has received chemo and radiation. Seen by pulmonary. been afebrile. denies any symptoms other than a cough with clear sputum. - Constitutional Vitals: Temp Pulse Resp BP Pulse Ox 97.9 F 90 16 154/49 94 09/28/17 11:30 09/28/17 11:42 09/28/17 11:30 09/28/17 11:30 09/28/17 11:30 General appearance: Present: A&O X 3, no acute distress, answers questions appropriately Exam: GEN: NAD CVS: RRR. S1, S2, No m/r/g RESP: diminshed bilaterally ABD: Soft, NT, ND, +BS EXT: No edema. 2+ DP. No rashes NEURO: Nonfocal Internal Medicine: Result - Labs CBC & Chem 7: 09/28/17 06:23 09/28/17 06:23 Labs: Short CBC 09/28/17 Range/Units 06:23 WBC 17.7 H (4.3-11.1) K/mcL Hgb 8.7 L (11.5-15.4) g/dL Hct 28.9 L (35.3-44.9) % Plt Count 160 (140-400) K/mcL Neutrophils # 15.3 H (1.6-8.9) K/mcL BMP 09/28/17 06:23 Sodium 137 Potassium 4.5 Chloride 102 Carbon Dioxide 30 H BUN 20 Creatinine 0.43 L Glucose 165 H Calcium 8.9 Consult Discharge Plan - Plan Referrals: Purvi Rey [Primary Care Provider] - 10/24/17 12:30 pm (Please fax discharge information to [phone])
[2017-09-28] MEDS ORDERED: Ipratropium/Albuterol Neb 3 ML IH PRN (12:01)
--- NOTE | 2017-09-28 19:28 | Oncology Inp Consult Note ---
<CarmelitaLaneManav S - Last Filed: 09/28/17 20:15> Date of Encounter: 09/28/17 - Data of Consult Requesting Physician: Matthew Chris Primary Care Provider: Purvi Rey - Consult Narrative History of present illness: Ms. Thomas is a 77 year old female Medications and Allergies Allopurinol [Zyloprim] 300 mg PO BID 03/15/17 [History] Cod Liver Oil 1 each PO DAILY 03/15/17 [History] Gabapentin [Neurontin] 600 mg PO TID 03/15/17 [History] Garlic 1,000 mg PO DAILY 03/15/17 [History] Levothyroxine [Synthroid] 88 mcg PO 0630 03/15/17 [History] Meloxicam [Mobic] 15 mg PO DAILY 03/15/17 [History] Albuterol Sulfate [Albuterol Inhaler] 1 puff IH Q4HR PRN #1 hfa.aer.ad 03/22/17 [Rx] Budesonide/Formoterol 160/4.5 [Symbicort 160/4.5] 2 puff IH BIDR #1 inh [Rx] glyBURIDE [GlyBURIDE] 5 mg PO BID 04/27/17 [History] Docusate Sodium [Colace] 100 mg PO BID PRN 06/18/17 [History] Montelukast [Singulair] 10 mg PO DAILY 09/28/17 [History] Levofloxacin [Levaquin] 500 mg PO DAILY #5 tablet 09/29/17 [Rx] 3 Allergy/AdvReac Type Severity Reaction Status Date / Time metformin Allergy Hives Verified 07/06/17 14:17 Penicillins [PCN] Allergy Anaphylaxis Verified 07/06/17 14:17 Oncology - Exam - Constitutional Vitals: Temp Pulse Resp BP Pulse Ox 98.4 F 102 18 135/68 93 09/28/17 15:47 09/28/17 19:18 09/28/17 19:18 09/28/17 19:18 09/28/17 19:18 Oncology - Results Labs: Short CBC 09/28/17 Range/Units 06:23 WBC 17.7 H (4.3-11.1) K/mcL Hgb 8.7 L (11.5-15.4) g/dL Hct 28.9 L (35.3-44.9) % Plt Count 160 (140-400) K/mcL Neutrophils # 15.3 H (1.6-8.9) K/mcL BMP 09/28/17 06:23 Sodium 137 Potassium 4.5 Chloride 102 Carbon Dioxide 30 H BUN 20 Creatinine 0.43 L Glucose 165 H Calcium 8.9 Consult Discharge Plan - Plan Referrals: Purvi Rey [Primary Care Provider] - 10/24/17 12:30 pm (Please fax discharge information to [phone]) Cheyanne Harp MD [Partnered Physician] - (2 weeks) Prescriptions: Levofloxacin [Levaquin] 500 mg PO DAILY #5 tablet - Attending Attestation I have seen and examined Ms. Thomas along my assistant department manager Ms. Sorenson. I agree with Ms. Sorenson's assessment. 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 She now has collapse of her left mainstem bronchus. I have discussed this case with Dr. Mcallister of pulmonary as well as Dr. Sinhg Goldberg of radiation oncology. It is felt this may represent progressive tumor although radiation scarring/retraction is also plausible. She denies any symptoms of shortness of breath or chest pain related to this process as breathing comfortably with the use of oxygen. She is not dyspnea on exertion prior to admission. Her dizziness has resolved with IV fluid hydration and overall she feels well. She likely get up and walk around potentially go home soon. From the perspective of her cancer, I have no new recommendations and recommend restaging scans in 2-[address] Duran. After discussion with the patient and pulmonary, we will not pursue bronchoscopy at this juncture. We will otherwise sign off. If you have any concerns or questions, do not hesitate to call my cell phone at [phone] <Gin Sorenson - Last Filed: 09/29/17 11:22> Date of Encounter: 09/28/17 Time of Encounter: 17:30 Assessment and Plan (1) Non-small cell cancer of left lung Status: Chronic Assessment and plan: Squamous cell carcinoma left lung s/p high dose radiotherapy completed 2016 followed with consolidative chemotherapy: carbo/taxol with neulasta, s/p cycle 4 09/17/16. Admitted with symptomatic hypotension. Symptoms have since resolved following IV hydration and BP stable at this time. CT chest reveals collapse of the left mainstem bronchus with full occlusion. Dr. Mae has discussed case with Dr. Goldberg, Radiation oncologist and Dr. Mcallister, Ethics Instructor. CT findings may represent progression although, scar tissue and post radiation changes remain in the differential as explanation to recent CT findings. Patient is currently asymptomatic and breathing comfortably , she had no respiratory symptoms prior to her admission. Following further discussions the decision was made not pursue bronchoscopy at this time. Plan as outlined above discussed with patient at bedside who understands and agrees with plan in its entirety. Oncology would like to continue to closely monitor patient following admission and would recommend restaging scans in about 2-3 months time. Shall she become symptomatic in this time, plan would need to be readdressed. Oncology will sign off at this time, we appreciate the consult and discussion of all involved in case. Shall the patients condition change or further questions arise please do not hesitate to ask for further consultation. Patient will be arranged for close outpatient follow up with Dr. Duran, treating oncologist. Please refer to Dr. Mae's attestation below for further details. - Data of Consult Patient: known to practice within the last 3 years Consult date: 09/28/17 Requesting Physician: Matthew Chris Primary Care Provider: Purvi Rey - Consult Narrative Reason for consult: squamous cell carcinoma of the left upper lobe History of present illness: Ms. Thomas is a 77 year old female with oncologic history significant for squamous cell carcinoma of the left upper lobe s/p pathology from brushings/ endotracheal biopsy from bronch 03/21/17. She also had a balloon dilation which was partially successful. Past medical history significant for HTN, non insulin dependant diabetes mellitus type II, and hypothroidism. She underwent, 05/11/2017 - 05/28/2017: Hypofractionated thoracic radiotherapy to the left upper lobe, 6000 cGy in 8 fractions. She is s/p cycle 4 adjuvant chemotherapy 09/17/17 with carbo/taxol and neulasta. She most recently presented to [facility] with c/o low BP to 88/44 measured at home per patient along with c/o feeling lightheaded. SHe reports her respiratory symptoms are at baseline with chronic cough and SOB. Pt has recent chemo but generally has adequate intake. In [facility] ER, she was found leukocytosis with WBC 14.[address] from [facility] shows shows left main stem endobronchial lesion which is occluding the whole left lung. She was transferred to [facility] for further management. Past Med Surg Social Fam HX - Past Medical History Medical history: diabetes, hypertension Psychiatric history: no psych history - Past Surgical History Surgical History: cholecystectomy, hysterectomy - Social History Smoking Status: Former smoker Smokeless Tobacco Status: No Alcohol use: none Drug use: none - Family History Mother Family Member Ethnicity: Non- Living Status: Hx Family Cancer: Yes (Breast, Renal) Hx Family Endocrine Disorder: Yes (DM, Thyroid disease) Father Family Member Ethnicity: Non- Living Status: Hx Family Cardiac Disorders: Yes (HD) Hx Family Cancer: Yes (Prostate cancer) Brother Family Member Ethnicity: Non- Living Status: Still Living Hx Family Cardiac Disorders: No Hx Family Respiratory Disorders: No Hx Family Cancer: Yes (skin, bone) Hx Family GI Disorders: No Hx Family Endocrine Disorder: No Hx Family Neuromuscular Disorders: No Hx Family Neurologic Disorders: No Hx Family HEENT Disorders: No Hx Family Autoimmune Disorders: No Constitutional: Absent: chills, fever(s), weight loss Eyes: Absent: change in vision Cardiovascular: Absent: chest pain, irregular heart rhythm, palpitations Respiratory: Present: cough, dyspnea on exertion Additional comments: chronic and unchanged from baseline Gastrointestinal: Absent: abdominal pain, excessive flatus, hematemesis, melena , nausea Genitourinary: Absent: dysuria, hematuria Musculoskeletal: Present: muscle weakness Integumentary: Absent: wounds Neurological: Present: dizziness, headache(s). Absent: focal weakness, numbness , tingling Hematologic/Lymphatic: Absent: easy bleeding, lymphadenopathy Oncology - Exam - Constitutional Vitals: Temp Pulse Resp BP Pulse Ox 98.4 F 102 18 135/68 93 09/28/17 15:47 09/28/17 19:18 09/28/17 19:18 09/28/17 19:18 09/28/17 19:18 General appearance: cooperative, no acute distress, no febrile - Head Head exam: Present: atraumatic - Respiratory Respiratory exam: Present: decreased breath sounds, CTAB - Cardiovascular Cardiovascular exam: Present: RRR, +S1, +S2 - GI/Abdominal GI/Abdominal exam: Present: normal bowel sounds, soft. Absent: guarding, tenderness - Extremities Exam Extremities exam: Present: pedal edema. Absent: calf tenderness - Neurological Exam Neurological exam: Present: alert, oriented X3, no focal deficits, strengths equal and symetr throughout - Psychiatric Psychiatric exam: Present: normal affect, normal mood - Skin Skin exam: Present: normal color, warm Oncology - Results Labs: Short CBC 09/28/17 Range/Units 06:23 WBC 17.7 H (4.3-11.1) K/mcL Hgb 8.7 L (11.5-15.4) g/dL Hct 28.9 L (35.3-44.9) % Plt Count 160 (140-400) K/mcL Neutrophils # 15.3 H (1.6-8.9) K/mcL BMP 09/28/17 06:23 Sodium 137 Potassium 4.5 Chloride 102 Carbon Dioxide 30 H BUN 20 Creatinine 0.43 L Glucose 165 H Calcium 8.9
[2017-09-28] MEDS ORDERED: Insulin LISPRO 300 UNITS/3 ML VIAL SQ SCH (21:00)
[2017-09-28] MEDS ORDERED: Insulin LISPRO 300 UNITS/3 ML VIAL SQ ONE (21:28)
[2017-09-29 04:19] LABS: Basophils % 0.2 %; Eosinophils % 0.1 %; Hematocrit 27.6 % (35.3-44.9); Hemoglobin 8.1 g/dL (11.5-15.4); Immature Granulocytes % 1.6 % (0-4); Lymphocytes # 1.2 K/mcL (0.6-4.6); Lymphocytes % 11.8 %; Mean Corpuscular HGB Conc 29.3 g/dL (31.6-35.5); Mean Corpuscular Hemoglobin 26.9 pg (28.0-33.3); Mean Corpuscular Volume 91.7 fL (83.0-100.0); Mean Platelet Volume 9.8 fL (9.4-12.4); Monocytes # 0.7 K/mcL (0.0-1.3); Monocytes % 7.1 %; Neutrophils # 8.2 K/mcL (1.6-8.9); Platelet Count 142 K/mcL (140-400); Red Blood Count 3.01 M/mcL (3.82-4.97); Red Cell Distribution Width 18.4 % (11.5-14.5); Segmented Neutrophils % 79.2 %
[2017-09-29 04:46] LABS: BUN/Creatinine Ratio 45 (6-26); Blood Urea Nitrogen 21 mg/dL (8-23); Calcium 8.9 mg/dL (8.6-10.3); Carbon Dioxide 31 mEq/L (23-29); Chloride 104 mEq/L (98-107); Glucose 92 mg/dL (70-105); Osmolality,Calculated 291 (280-300); Potassium 4.9 mEq/L (3.5-5.1); Sodium 139 mEq/L (136-145); eGFR For African Americans > 60 (> 60); eGFR For Non-African Americans > 60 (> 60)
[2017-09-29] MEDS: *HR* Heparin 5,000 UNIT/ML VIAL SQ SCH (06:15)
[2017-09-29 07:14] VITALS: BP 129/66
[2017-09-29] MEDS: Budesonide/Formoterol 160/4.5 MDI IH SCH (07:27)
[2017-09-29] MEDS: Insulin LISPRO 300 UNITS/3 ML VIAL SQ SCH (08:09)
[2017-09-29] MEDS: Gabapentin 300 MG CAPSULE PO SCH (08:13)
[2017-09-29] MEDS: Lactobacillus 1 EACH CAP.SPRINK PO SCH (08:14)
[2017-09-29] MEDS: Levofloxacin 750 MG/150 ML 750 MG/150 ML BAG IVPB SCH (08:14)
--- NOTE | 2017-09-29 08:52 | Discharge Summary ---
Date of Encounter: 09/29/17 Time of Encounter: 08:48 - Discharge Diagnosis (1) Abnormal chest CT Priority: Primary Status: Acute (2) Pneumonia Priority: Primary Status: Suspected Qualifiers: Pneumonia type: due to unspecified organism Laterality: left Lung location: unspecified part of lung Qualified Code(s): J18.9 - Pneumonia, unspecified organism (3) Diabetes mellitus Priority: Secondary Status: Acute Qualifiers: Diabetes mellitus type: type 2 Diabetes mellitus complication status: without complication Diabetes mellitus terminal make up operator insulin use: without assisted use Qualified Code(s): E11.9 - Type 2 diabetes mellitus without complications (4) Non-small cell carcinoma of lung Priority: Secondary Status: Acute (5) Essential hypertension Priority: Secondary Status: Chronic (6) Hypothyroidism Priority: Secondary Status: Chronic Qualifiers: Hypothyroidism type: unspecified Qualified Code(s): E03.9 - Hypothyroidism , unspecified (7) Hypotension Priority: Primary Status: Acute Qualifiers: Hypotension type: unspecified hypotension type Qualified Code(s): I95.9 - Hypotension, unspecified - Discharge Medications Prescriptions: Levofloxacin [Levaquin] 500 mg PO DAILY #5 tablet Home Medications: Allopurinol [Zyloprim] 300 mg PO BID 03/15/17 [History] Cod Liver Oil 1 each PO DAILY 03/15/17 [History] Gabapentin [Neurontin] 600 mg PO TID 03/15/17 [History] Garlic 1,000 mg PO DAILY 03/15/17 [History] Levothyroxine [Synthroid] 88 mcg PO 0630 03/15/17 [History] Meloxicam [Mobic] 15 mg PO DAILY 03/15/17 [History] Albuterol Sulfate [Albuterol Inhaler] 1 puff IH Q4HR PRN #1 hfa.aer.ad 03/22/17 [Rx] Budesonide/Formoterol 160/4.5 [Symbicort 160/4.5] 2 puff IH BIDR #1 inh [Rx] glyBURIDE [GlyBURIDE] 5 mg PO BID 04/27/17 [History] Docusate Sodium [Colace] 100 mg PO BID PRN 06/18/17 [History] Montelukast [Singulair] 10 mg PO DAILY 09/28/17 [History] Levofloxacin [Levaquin] 500 mg PO DAILY #5 tablet 09/29/17 [Rx] Allergies/Adverse Reactions: 3 Allergy/AdvReac Type Severity Reaction Status Date / Time metformin Allergy Hives Verified 07/06/17 14:17 Penicillins [PCN] Allergy Anaphylaxis Verified 07/06/17 14:17 Date of admission: 09/27/17 19:53 Primary care physician: Purvi Rey Consults: 09/27/17 22:14 Consult to Pulmonology [CONS] Routine Consulting Provider: [facility] Reason for Consult: [facility] ER CXR shows left lung near white-out. 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 Pt has hx of left lung squamous cell cancer following with oncology here, s/p chemo and radiation. Call Completed: No 09/28/17 11:41 Consult to Oncology [CONS] Routine Consulting Provider: [facility] Reason for Consult: NSCLC. known to you. Call Completed: Yes 09/28/17 12:20 Consult to Pulmonology [CONS] Routine Consulting Provider: [facility] Marydel Reason for Consult: oriana Call Completed: Yes - Patient Status Disposition: Home, Self-Care Condition: Fair Overall status at discharge: patient is progressing back to baseline - Discharge Instructions Follow Up With: Purvi Rey [Primary Care Provider] - 10/24/17 12:30 pm (Please fax discharge information to [phone]) Cheyanne Harp MD [Partnered Physician] - (2 weeks) - Diet and Activity Activity: increase activity as tolerated, wear oxygen at all times Diet: diabetic diet Hospital course: Ms. Thomas is a 77 year old female Hx of squamous cell lung cancer s/p chemo and radiation therapy, DM transferred from [facility] for left lung near complete white out. She actualy presented there with dizziness and was given IVF for BP in the 80s/40s and her BP was better after that and dizziness resolved. She had an elevated white count and was started on antibiotics for pneumonia. Her cultures remained negative. She was transferred to our facility and admitted under the hospitalist service. We had pulmonary see her and they looked at her images and thought that a bronchoscopy would not be of any benefit. Oncology saw the patient and recommended follow-up with them as an outpatient for reimaging. She was discharged on Levaquin to finish treatment for pneumonia. She was on her chronic or 20s throughout. She actually never complained of any respiratory issues while she was here. The patient was stable on discharge on 09/29/2017. - Time Spent with Patient Total time spent providing and/or coordinating discharge services: Greater than 30 minutes - Constitutional Vitals: Temp Pulse Resp BP Pulse Ox 98.2 F 94 16 129/66 98 09/29/17 07:02 09/29/17 08:30 09/29/17 08:27 09/29/17 08:27 09/29/17 07:27 General appearance: Present: A&O X 3, no acute distress, answers questions appropriately Exam: GEN: NAD CVS: RRR. S1, S2, No m/r/g RESP:diminished at the bases ABD: Soft, NT, ND, +BS EXT: No edema. 2+ DP. No rashes NEURO: Nonfocal
--- NOTE | 2017-09-29 08:52 | Physician Discharge Referral ---
Home Health/Hosp Referral Info Transfer to: Home Health - Diagnosis (1) Abnormal chest CT Priority: Primary Status: Acute (2) Pneumonia Priority: Primary Status: Suspected (3) Diabetes mellitus Priority: Secondary Status: Acute (4) Non-small cell carcinoma of lung Priority: Secondary Status: Acute (5) Essential hypertension Priority: Secondary Status: Chronic (6) Hypothyroidism Priority: Secondary Status: Chronic (7) Hypotension Priority: Primary Status: Acute - Respiratory Orders Smoking Cessation: Smoking cessation has been advised. For more information, call the [place] Tobacco Quit Line at 7-006-FEPS-NOW. - Services Needed Following services are medically necessary services: Nursing, Home Health Aide, Physical Therapy - Transfer Medications Prescriptions: Levofloxacin [Levaquin] 500 mg PO DAILY #5 tablet Home Medications: Allopurinol [Zyloprim] 300 mg PO BID 03/15/17 [History] Cod Liver Oil 1 each PO DAILY 03/15/17 [History] Gabapentin [Neurontin] 600 mg PO TID 03/15/17 [History] Garlic 1,000 mg PO DAILY 03/15/17 [History] Levothyroxine [Synthroid] 88 mcg PO 0630 03/15/17 [History] Meloxicam [Mobic] 15 mg PO DAILY 03/15/17 [History] Albuterol Sulfate [Albuterol Inhaler] 1 puff IH Q4HR PRN #1 hfa.aer.ad 03/22/17 [Rx] Budesonide/Formoterol 160/4.5 [Symbicort 160/4.5] 2 puff IH BIDR #1 inh [Rx] glyBURIDE [GlyBURIDE] 5 mg PO BID 04/27/17 [History] Docusate Sodium [Colace] 100 mg PO BID PRN 06/18/17 [History] Montelukast [Singulair] 10 mg PO DAILY 09/28/17 [History] Levofloxacin [Levaquin] 500 mg PO DAILY #5 tablet 09/29/17 [Rx] Allergies/Adverse Reactions: 3 Allergy/AdvReac Type Severity Reaction Status Date / Time metformin Allergy Hives Verified 07/06/17 14:17 Penicillins [PCN] Allergy Anaphylaxis Verified 07/06/17 14:17 Certification: Further, I certify that my clinical findings support that this patient is homebound (i.e. absences from home require considerable and taxing effort and are for medical reasons or yarsanism services or infrequently or short duration when for other reasons) because: Homebound Reason: Patient requires assistance of a person or device to safely leave home Attestation: My signature below is to certify that this patient is under my care and that I, or nurse practitioner, or a physician's certified pharmacist assistant working with me, has a face-to -face encounter with this patient.
== END 2017-09-29 12:00 | disposition home or self-care (01) | DRG 194 ==
LOC: 2NNU 19:53
PROVIDERS: ADMIT Internal Medicine Cardiovascular Disease; ATTEND Internal Medicine

== ENCOUNTER 2017-10-12 12:55 | Inpatient (IN) ==
[2017-10-12 13:37] LABS: Basophils % 0.2 %; Lymphocytes % 11.4 %
[2017-10-12 13:39] LABS: Eosinophils # 0.1 K/mcL (0.0-0.6); Eosinophils % 0.8 %; Hematocrit 22.9 % (35.3-44.9); Immature Granulocytes % 0.9 % (0-4); Mean Corpuscular HGB Conc 28.4 g/dL (31.6-35.5); Mean Corpuscular Hemoglobin 26.7 pg (28.0-33.3); Mean Corpuscular Volume 94.2 fL (83.0-100.0); Monocytes # 0.8 K/mcL (0.0-1.3); Monocytes % 6.9 %; Neutrophils # 8.7 K/mcL (1.6-8.9); Platelet Count 207 K/mcL (140-400); Red Blood Count 2.43 M/mcL (3.82-4.97); Red Cell Distribution Width 19.2 % (11.5-14.5); Segmented Neutrophils % 79.8 %
[2017-10-12 13:40] LABS: Hemoglobin 6.5 g/dL (11.5-15.4); Lymphocytes # 1.2 K/mcL (0.6-4.6)
[2017-10-12 14:45] LABS: BUN/Creatinine Ratio 26 (6-26); Blood Urea Nitrogen 12 mg/dL (8-23); Calcium 9.2 mg/dL (8.6-10.3); Carbon Dioxide 31 mEq/L (23-29); Chloride 97 mEq/L (98-107); Glucose 194 mg/dL (70-105); Osmolality,Calculated 283 (280-300); Potassium 4.5 mEq/L (3.5-5.1); Sodium 134 mEq/L (136-145); eGFR For African Americans > 60 (> 60); eGFR For Non-African Americans > 60 (> 60)
--- NOTE | 2017-10-12 15:41 | Emergency Department Note ---
Disposition Clinical Impression: Symptomatic anemia Disposition: Admitted As Inpatient Condition: Good General Adult HPI - General Chief complaint: ED Recheck/Abnormal Lab/Rx Stated complaint: "low hgb" Time Seen by Provider: 10/12/17 15:18 Source: patient Limitations: no limitations Nursing Notes Reviewed: Yes Vital Signs Reviewed: Yes - History of Present Illness Pain Scale: 3 - Related Data Home Medications Medication Instructions Recorded Confirmed Allopurinol [Zyloprim] 300 mg PO BID 03/15/17 10/12/17 Cod Liver Oil 1 each PO DAILY 03/15/17 10/12/17 Gabapentin [Neurontin] 600 mg PO TID 03/15/17 10/12/17 Garlic 1,000 mg PO DAILY 03/15/17 10/12/17 Levothyroxine [Synthroid] 88 mcg PO 0603/15/17 10/12/17 Meloxicam [Mobic] 15 mg PO DAILY 03/15/17 10/12/17 glyBURIDE [GlyBURIDE] 5 mg PO BID 04/27/17 10/12/17 Docusate Sodium [Colace] 100 mg PO BID PRN 06/18/17 10/12/17 Montelukast [Singulair] 10 mg PO DAILY 09/28/17 10/12/17 Ipratropium/Albuterol Neb [Duoneb] 3 ml IH Q6H PRN 10/12/17 10/12/17 Previous Rx's Medication Instructions Recorded Albuterol Sulfate [Albuterol 1 puff IH Q4HR PRN #1 hfa.aer.ad 03/22/17 Inhaler] Budesonide/Formoterol 160/4.5 2 puff IH BIDR #1 inh 03/22/17 [Symbicort 160/4.5] Allergies Allergy/AdvReac Type Severity Reaction Status Date / Time metformin Allergy Hives Verified 10/12/17 13:14 Penicillins [PCN] Allergy Anaphylaxis Verified 10/12/17 13:14 Past Medical History - Past Medical History Medical history: Reports: diabetes Surgical history: Reports: cholecystectomy, hysterectomy Psychiatric history: Reports: no psych history WRAPPER HANDS SPRAYER history: Reports: no WRAPPER HANDS SPRAYER history - Social History Smoking Status: Former smoker Smokeless Tobacco Status: No Alcohol use: Reports: none Drug use: Reports: none Physical Exam - General Limitations: no limitations General appearance: alert, in no apparent distress Course Vital Signs Temperature 99.7 F H 10/12/17 13:11 Pulse Rate 107 10/12/17 13:11 Respiratory Rate 18 10/12/17 13:11 Blood Pressure 103/66 10/12/17 13:11 O2 Sat by Pulse Oximetry 91 10/12/17 13:11 Temperature 98.2 F 10/12/17 20:14 Pulse Rate 109 10/12/17 20:14 Respiratory Rate 18 10/12/17 20:14 Blood Pressure 110/69 10/12/17 20:14 O2 Sat by Pulse Oximetry 95 10/12/17 20:14 Oxygen Delivery Oxygen Delivery Nasal Cannula Medical Decision Making - MDM Narrative Medical decision making narrative: This documentation is done with the assistance of Dragon dictation. Despite efforts made to ensure accuracy, there may be inaccuracies in ping pong table assembler or spelling and typographical errors. I examined this patient and my medical decision-making was reviewed with the Resident Physician. I agree with the documented findings, disposition and treatment plan as described except to the extent set forth below. Patient seen and evaluated by Dr. Gonzales and myself, I agree with his evaluation and management plan, supervise care the patient's stay. Patient is here because her hemoglobin is low. They joselito blood on her yesterday hemoglobin was 6.5 that was repeated out in the lobby today is the same. She is being treated for lung cancer. By oncology care. She denies being any more dyspneic than usualfevers or chills. She has denies blood transfusion in the past. She will need investigation of her anemia and blood transfusion. In admission. - Lab Data Result diagrams: 10/12/17 13:29 10/12/17 13:29 Lab Results 10/12/17 10/12/17 10/12/17 Range/Units 13:29 13:29 13:29 WBC 10.9 (4.3-11.1) K/mcL RBC 2.43 L (3.82-4.97) M/mcL Hgb 6.5 L (11.5-15.4) g/dL Hct 22.9 L (35.3-44.9) % MCV 94.2 (83.0-100.0) fL MCH 26.7 L (28.0-33.3) pg MCHC 28.4 L (31.6-35.5) g/dL RDW 19.2 H (11.5-14.5) % Plt Count 207 (140-400) K/mcL MPV 10.0 (9.4-12.4) fL Immature Gran % 0.9 (0-4) % Seg Neutrophils % 79.8 % Lymphocytes % 11.4 % Monocytes % 6.9 % Eosinophils % 0.8 % Basophils % 0.2 % Neutrophils # 8.7 (1.6-8.9) K/mcL Lymphocytes # 1.2 (0.6-4.6) K/mcL Monocytes # 0.8 (0.0-1.3) K/mcL Eosinophils # 0.1 (0.0-0.6) K/mcL Basophils # 0.0 (0.0-0.2) K/mcL Sodium 134 L (136-145) mEq/L Potassium 4.5 (3.5-5.1) mEq/L Chloride 97 L (98-107) mEq/L Carbon Dioxide 31 H (23-29) mEq/L BUN 12 (8-23) mg/dL Creatinine 0.47 L (0.60-1.20) mg/dL Est GFR ( Amer) > 60 (> 60) Est GFR (Non-Af Amer) > 60 (> 60) BUN/Creatinine Ratio 26 (6-26) Glucose 194 H (70-105) mg/dL Calculated Osmolality 283 (280-300) Calcium 9.2 (8.6-10.3) mg/dL Stool Occult Blood (Negative) Blood Type A NEGATIVE Antibody Screen NEGATIVE 10/12/17 Range/Units 16:17 WBC (4.3-11.1) K/mcL RBC (3.82-4.97) M/mcL Hgb (11.5-15.4) g/dL Hct (35.3-44.9) % MCV (83.0-100.0) fL MCH (28.0-33.3) pg MCHC (31.6-35.5) g/dL RDW (11.5-14.5) % Plt Count (140-400) K/mcL MPV (9.4-12.4) fL Immature Gran % (0-4) % Seg Neutrophils % % Lymphocytes % % Monocytes % % Eosinophils % % Basophils % % Neutrophils # (1.6-8.9) K/mcL Lymphocytes # (0.6-4.6) K/mcL Monocytes # (0.0-1.3) K/mcL Eosinophils # (0.0-0.6) K/mcL Basophils # (0.0-0.2) K/mcL Sodium (136-145) mEq/L Potassium (3.5-5.1) mEq/L Chloride (98-107) mEq/L Carbon Dioxide (23-29) mEq/L BUN (8-23) mg/dL Creatinine (0.60-1.20) mg/dL Est GFR ( Amer) (> 60) Est GFR (Non-Af Amer) (> 60) BUN/Creatinine Ratio (6-26) Glucose (70-105) mg/dL Calculated Osmolality (280-300) Calcium (8.6-10.3) mg/dL Stool Occult Blood Negative (Negative) Blood Type Antibody Screen
--- NOTE | 2017-10-12 16:38 | Emergency Department Note ---
Disposition Clinical Impression: Symptomatic anemia Disposition: Admitted As Inpatient Condition: Good Referrals: Purvi Rey [Primary Care Provider] - Forms: ED Satisfaction Letter General Adult HPI - General Chief complaint: ED Recheck/Abnormal Lab/Rx Stated complaint: "low hgb" Time Seen by Provider: 10/12/17 15:18 Source: patient Limitations: no limitations Nursing Notes Reviewed: Yes Vital Signs Reviewed: Yes - History of Present Illness HPI Narrative: 77 y/o female w/ PMH of DM, HTN, and left lung cancer (squamous cell carcinoma) . She reports that she had a routine lab draw and was called due to low hemoglobin. She reports feeling fatigued. Denies CP or TITUS. Denies cardiac history. Denies bleeding anywhere she is aware of. Denies black stool. Denies abdominal pain or diarrhea. Finished her chemotherapy a week or two ago. Denies bleeding anywhere. Denies bruising. Radiation: non-radiation Pain Severity: mild Pain Scale: 3 Improves with: nothing Worsens with: nothing Associated symptoms: Reports: denies other symptoms Treatments Prior to Arrival: none - Related Data Home Medications Medication Instructions Recorded Confirmed Allopurinol [Zyloprim] 300 mg PO BID 03/15/17 09/28/17 Cod Liver Oil 1 each PO DAILY 03/15/17 09/28/17 Gabapentin [Neurontin] 600 mg PO TID 03/15/17 09/28/17 Garlic 1,000 mg PO DAILY 03/15/17 09/28/17 Levothyroxine [Synthroid] 88 mcg PO 0630 03/15/17 09/28/17 Meloxicam [Mobic] 15 mg PO DAILY 03/15/17 09/28/17 glyBURIDE [GlyBURIDE] 5 mg PO BID 04/27/17 09/28/17 Docusate Sodium [Colace] 100 mg PO BID PRN 06/18/17 09/28/17 Montelukast [Singulair] 10 mg PO DAILY 09/28/17 09/28/17 Ipratropium/Albuterol Neb [Duoneb] 3 ml IH Q6H PRN 10/12/17 10/12/17 Previous Rx's Medication Instructions Recorded Albuterol Sulfate [Albuterol 1 puff IH Q4HR PRN #1 hfa.aer.ad 07/27/17 Inhaler] Budesonide/Formoterol 160/4.5 2 puff IH BIDR #1 inh 03/22/17 [Symbicort 160/4.5] Allergies Allergy/AdvReac Type Severity Reaction Status Date / Time metformin Allergy Hives Verified 10/12/17 13:14 Penicillins [PCN] Allergy Anaphylaxis Verified 10/12/17 13:14 All systems ED: reviewed and negative except as stated. Constitutional: Denies: fever Cardiovascular: Denies: chest pain Respiratory: Denies: cough, dyspnea Gastrointestinal: Denies: abdominal pain Musculoskeletal: Denies: back pain Integumentary: Denies: rash Past Medical History - Past Medical History Medical history: Reports: diabetes Surgical history: Reports: cholecystectomy, hysterectomy Psychiatric history: Reports: no psych history PICKLING SOLUTION MAKER history: Reports: no PICKLING SOLUTION MAKER history - Social History Smoking Status: Former smoker Smokeless Tobacco Status: No Alcohol use: Reports: none Drug use: Reports: none Physical Exam - General Limitations: no limitations General appearance: alert, in no apparent distress - Head Head exam: atraumatic - Eye Eye exam: Present: normal appearance - ENT ENT exam: normal exam, normal oropharynx - Neck Neck exam: Present: normal inspection - Chest Chest inspection: Present: normal inspection - Respiratory Respiratory exam: Present: normal lung sounds bilaterally. Absent: respiratory distress - Cardiovascular Cardiovascular exam: Present: normal rhythm, tachycardia - Abdominal Exam Abdominal exam: Present: soft, Non-Tender - Rectal Exam Bar Machine Operator Production present during exam: Yes Rectal exam: Present: normal inspection, normal rectal tone, heme (-) stool - Extremities Exam Extremities exam: Present: normal inspection - Neurological Exam Neurological exam: Present: alert, oriented X3 - Skin Skin exam: Present: warm, dry Course Course Narrative: Hgb verified as low. Will transfuse due to tachycardia/mildly decreased BP. BP improved after starting IVF and blood. Hemoccult is negative. Will admit. Vital Signs Temperature 99.7 F H 10/12/17 13:11 Pulse Rate 107 10/12/17 13:11 Respiratory Rate 18 10/12/17 13:11 Blood Pressure 103/66 10/12/17 13:11 O2 Sat by Pulse Oximetry 91 10/12/17 13:11 Temperature 97.5 F L 10/12/17 17:02 Pulse Rate 103 10/12/17 17:02 Respiratory Rate 20 10/12/17 17:02 Blood Pressure 113/72 10/12/17 17:02 O2 Sat by Pulse Oximetry 98 10/12/17 17:02 Oxygen Delivery Oxygen Delivery Nasal Cannula Medical Decision Making - Medical Records Medical records reviewed: Yes I reviewed the patient's medical records. - Lab Data Lab results reviewed: Yes I reviewed the patient's lab results. Result diagrams: 10/12/17 13:29 10/12/17 13:29 Lab Results 10/12/17 10/12/17 10/12/17 Range/Units 13:29 13:29 13:29 WBC 10.9 (4.3-11.1) K/mcL RBC 2.43 L (3.82-4.97) M/mcL Hgb 6.5 L (11.5-15.4) g/dL Hct 22.9 L (35.3-44.9) % MCV 94.2 (83.0-100.0) fL MCH 26.7 L (28.0-33.3) pg MCHC 28.4 L (31.6-35.5) g/dL RDW 19.2 H (11.5-14.5) % Plt Count 207 (140-400) K/mcL MPV 10.0 (9.4-12.4) fL Immature Gran % 0.9 (0-4) % Seg Neutrophils % 79.8 % Lymphocytes % 11.4 % Monocytes % 6.9 % Eosinophils % 0.8 % Basophils % 0.2 % Neutrophils # 8.7 (1.6-8.9) K/mcL Lymphocytes # 1.2 (0.6-4.6) K/mcL Monocytes # 0.8 (0.0-1.3) K/mcL Eosinophils # 0.1 (0.0-0.6) K/mcL Basophils # 0.0 (0.0-0.2) K/mcL Sodium 134 L (136-145) mEq/L Potassium 4.5 (3.5-5.1) mEq/L Chloride 97 L (98-107) mEq/L Carbon Dioxide 31 H (23-29) mEq/L BUN 12 (8-23) mg/dL Creatinine 0.47 L (0.60-1.20) mg/dL Est GFR ( Amer) > 60 (> 60) Est GFR (Non-Af Amer) > 60 (> 60) BUN/Creatinine Ratio 26 (6-26) Glucose 194 H (70-105) mg/dL Calculated Osmolality 283 (280-300) Calcium 9.2 (8.6-10.3) mg/dL Stool Occult Blood (Negative) Blood Type A NEGATIVE Antibody Screen NEGATIVE 10/12/17 Range/Units 16:17 WBC (4.3-11.1) K/mcL RBC (3.82-4.97) M/mcL Hgb (11.5-15.4) g/dL Hct (35.3-44.9) % MCV (83.0-100.0) fL MCH (28.0-33.3) pg MCHC (31.6-35.5) g/dL RDW (11.5-14.5) % Plt Count (140-400) K/mcL MPV (9.4-12.4) fL Immature Gran % (0-4) % Seg Neutrophils % % Lymphocytes % % Monocytes % % Eosinophils % % Basophils % % Neutrophils # (1.6-8.9) K/mcL Lymphocytes # (0.6-4.6) K/mcL Monocytes # (0.0-1.3) K/mcL Eosinophils # (0.0-0.6) K/mcL Basophils # (0.0-0.2) K/mcL Sodium (136-145) mEq/L Potassium (3.5-5.1) mEq/L Chloride (98-107) mEq/L Carbon Dioxide (23-29) mEq/L BUN (8-23) mg/dL Creatinine (0.60-1.20) mg/dL Est GFR ( Amer) (> 60) Est GFR (Non-Af Amer) (> 60) BUN/Creatinine Ratio (6-26) Glucose (70-105) mg/dL Calculated Osmolality (280-300) Calcium (8.6-10.3) mg/dL Stool Occult Blood Negative (Negative) Blood Type Antibody Screen - Radiology Data Radiology results reviewed: Yes I reviewed the patient's radiology results.
[2017-10-12] MEDS ORDERED: 0.9 % Sodium Chloride 1,000 ML IVC ONE (16:47)
[2017-10-12] MEDS ORDERED: Acetaminophen 325 MG TABLET PO PRN (23:46)
[2017-10-12] MEDS ORDERED: Naloxone 0.4 MG/ML INJ IVP PRN (23:46)
[2017-10-12] MEDS ORDERED: Ondansetron 4 MG/2 ML VIAL IVP PRN (23:58)
--- NOTE | 2017-10-13 00:24 | Internal Med History&Physical ---
<Marco Antonio Barnett - Last Filed: 10/13/17 01:07> Date of Encounter: 10/12/17 Time of Encounter: 22:00 Assessment and Plan (1) Symptomatic anemia Current visit: Yes Status: Acute Acute symptomatic anemia w/Hgb of 6.5 and Hct of 22.9 on admission. Hgb/Hct on was 8.7/28.9 and on 08/28/17 9.5/31.7. Pt. denies unusual bleeding. Fecal Hemoccult negative in ED. Patient typed and screened with A negative blood and negative antibody screen. Two units of PRBCs ordered for transfusion w/20 mg IVP lasix to follow each completed transfusion. H/H Q3HR. Falls/safety precautions, up with assist, and bed rest w/bedside commode w/assist only d/t weakness. Pt. discussed w/Dr. Pace who is in agreement w/plan of care. Pt. is high risk for further morbidity d/t currently low Hgb, immunocompromised status d/t current cancer dx and tx, hx, and risk factors. Inpatient. (2) Weakness Current visit: Yes Status: Acute Acute weakness r/t anemia and low Hgb. Falls/safety precautions, up with assist , and bed rest w/bedside commode w/assist only. (3) Tachycardia Current visit: Yes Status: Acute Acute tachycardia r/t current anemia and drop in Hgb and Hct. EKG and obtain old EKG ordered. Continuous cardiac telemetry. (4) Loss of appetite Current visit: Yes Status: Acute Acute loss of appetite over the past two weeks. Pt. reports reduced intake. Nutrition consult ordered for PO supplementation. ADA diet. (5) Gout Current visit: Yes Status: Chronic Hx of chronic gout. Continue pts. allopurinol. Qualifiers: Gout site: unspecified site Gout etiology: unspecified cause Chronicity: chronic Presence of tophus: without tophus Qualified Code(s): M1A.9XX0 - Chronic gout, unspecified, without tophus (tophi) (6) Rheumatoid arthritis Current visit: Yes Status: Chronic Hx of chronic RA. Continue pts. Meloxicam. Qualifiers: Rheumatoid arthritis location: unspecified site Rheumatoid factor presence : unspecified presence Qualified Code(s): M06.9 - Rheumatoid arthritis, unspecified (7) COPD (chronic obstructive pulmonary disease) Current visit: Yes Status: Chronic Hx of chronic COPD. Stable. Supplemental O2 w/titration and SpO2 monitoring. DuoNebs Q6. Qualifiers: COPD type: emphysema Emphysema type: centrilobular Qualified Code(s): J43.2 - Centrilobular emphysema (8) Diabetes mellitus Current visit: Yes Status: Chronic Hx of chronic diabetes controlled with oral anti-hyperglycemic medications. Hold oral medications and administer low-dose correction insulin sliding scale w /hypoglycemic protocol. BG checks ACHS. A1c in a.m. labs. Qualifiers: Diabetes mellitus type: type 2 Diabetes mellitus complication status: without complication Diabetes mellitus termite exterminator helper insulin use: without jail use Qualified Code(s): E11.9 - Type 2 diabetes mellitus without complications (9) Non-small cell carcinoma of lung Current visit: Yes Status: Chronic Hx of non-small cell carcinoma of left lung. Pt. reports finishing chemotherapy two weeks ago. Pt. sees Dr. Duran at [facility]. Oncology consult ordered and I appreciate the consult. Follow-up OP. (10) SOB (shortness of breath) Current visit: Yes Status: Chronic Hx of chronic SOB d/t COPD dx and lung cancer. Supplemental O2 w/titration and SpO2 monitoring. DuoNebs Q6 PRN. (11) Hypothyroidism Current visit: Yes Status: Chronic Hx of chronic hypothyroidism. Continue pts. Synthroid. TSH and Free T4 ordered in a.m. labs. Qualifiers: Hypothyroidism type: unspecified Qualified Code(s): E03.9 - Hypothyroidism , unspecified (12) DVT prophylaxis Current visit: Yes Status: Acute Bilateral SCDs on LEs for DVT prophylaxis d/t current drop in Hgb of unknown etiology. Monitor pt. for signs of bleeding. Internal Medicine - H&P: HPI Chief complaint: Abnormal labs/Weakness/Fatigue Admitted From: Emergency Dept Plans for Post Hospital Care: Home History of present illness: Ms. Thomas is a 77 year old female with medical history of gout, diabetes, thyroid disease, squamous cell carcinoma of the left lung, and rheumatoid arthritis presents from the ED with chief complaint of abnormal lab values, particularly low hemoglobin, and severe weakness and fatigue for the past 3-4 days. Patient reports she finished chemotherapy treatments 2 weeks ago. Reports sciatica, neuropathy, and reduced appetite and intake but denies recent illness, fever, chills, nausea, vomiting, headache, changes in vision, chest pain, shortness of breath, palpitations, numbness, tingling, abdominal pain, diarrhea, constipation, unusual bleeding, dizziness, lightheadedness, pre- syncope, or syncope. Past Med Surg Social Fam HX - Past Medical History Source: patient, old records reviewed Medical history: cancer (Squamous cell carcinoma of the left lung), diabetes, RA , other (Gout, sciatica, neuropathy) Psychiatric history: no psych history - Past Surgical History Surgical History: cholecystectomy, hysterectomy (Total) - Social History Smoking Status: Former smoker Packs per day: 2 PPD - Quit in 2008 Smokeless Tobacco Status: No Alcohol use: none Drug use: none Current living situation: Home Activity Level: Uses cane/walker Recent Out of Country Travel Within the Last 8 Weeks: No Exposure or Possible Exposure to Illness During Travel: No - Family History Mother Name: Reyna Sandoval Race: Family Member Ethnicity: Non- Living Status: Age at : 88 Cause of : renal cancer Hx Family Cardiac Disorders: No Hx Family Respiratory Disorders: No Hx Family Cancer: Yes Hx Family GI Disorders: No Hx Family Genitourinary Disorders: No Hx Family Endocrine Disorder: No Father Race: Family Member Ethnicity: Non- Living Status: Age at : 59 Cause of : after prostate surgery Hx Family Cardiac Disorders: Yes (HD) Hx Family Cancer: Yes (Prostate cancer) Brother Race: Family Member Ethnicity: Non- Living Status: Still Living Hx Family Cardiac Disorders: No Hx Family Respiratory Disorders: No Hx Family Cancer: Yes (skin, bone) Hx Family GI Disorders: No Hx Family Endocrine Disorder: No Hx Family Neuromuscular Disorders: No Hx Family Neurologic Disorders: No Hx Family HEENT Disorders: No Hx Family Autoimmune Disorders: No Sister Race: Family Member Ethnicity: Non- Living Status: Still Living Hx Family Cancer: Yes (Breast) Internal Medicine - H&P: Meds Allopurinol [Zyloprim] 300 mg PO BID 03/15/17 [History] Cod Liver Oil 1 each PO DAILY 03/15/17 [History] Gabapentin [Neurontin] 600 mg PO TID 03/15/17 [History] Garlic 1,000 mg PO DAILY 03/15/17 [History] Levothyroxine [Synthroid] 88 mcg PO 0630 03/15/17 [History] Meloxicam [Mobic] 15 mg PO DAILY 03/15/17 [History] Albuterol Sulfate [Albuterol Inhaler] 1 puff IH Q4HR PRN #1 hfa.aer.ad 03/22/17 [Rx] Budesonide/Formoterol 160/4.5 [Symbicort 160/4.5] 2 puff IH BIDR #1 inh [Rx] glyBURIDE [GlyBURIDE] 5 mg PO BID 04/27/17 [History] Docusate Sodium [Colace] 100 mg PO BID PRN 06/18/17 [History] Montelukast [Singulair] 10 mg PO DAILY 09/28/17 [History] Ipratropium/Albuterol Neb [Duoneb] 3 ml IH Q6H PRN 10/12/17 [History] 3 Allergy/AdvReac Type Severity Reaction Status Date / Time metformin Allergy Hives Verified 10/12/17 13:14 Penicillins [PCN] Allergy Anaphylaxis Verified 10/12/17 13:14 All Systems PM: A 10-system review of systems was performed and is negative for pertinent findings except as documented above in the HPI. - Constitutional Constitutional: as per HPI, anorexia, fatigue, weakness, no chills, no fever(s) , no night sweats - EENT Eyes: no change in vision, no discharge, no pain, no photophobia Ears: as per HPI, no ear discharge, no ear pain, no tinnitus Nose, mouth and throat: no dysphagia, no nasal discharge, no neck pain, no sore throat - Breasts Breasts: as per HPI - Cardiovascular Cardiovascular ROS IM: edema (Bilateral LEs), no chest pain, no diaphoresis, no dyspnea, no lightheadedness, no palpitations, no syncope - Respiratory Respiratory: no cough, no dyspnea, no wheezing, no excessive phlegm production - Gastrointestinal Gastrointestinal: no abdominal pain, no diarrhea, no hematemesis, no hematochezia, no melena, no nausea, no vomiting - Genitourinary Genitourinary: no change in urinary stream, no dysuria, no flank pain, no hematuria Menstruation: as per HPI, post hysterectomy - Musculoskeletal Musculoskeletal ROS IM: arthralgias, no numbness, no tingling - Integumentary Integumentary IM: no rash, no unusual bruising - Neurological Neurological ROS: as per HPI, weakness, no confusion, no convulsions, no focal weakness, no numbness, no tingling, no tremor(s) - Psychiatric Psychiatric: as per HPI - Endocrine Endocrine IM: as per HPI - Hematologic/Lymphatic Hematologic/Lymphatic: no easy bruising - Allergic/Immunologic Allergic/Immunologic: as per HPI - Constitutional Vitals: Temp Pulse Resp BP Pulse Ox 98.3 F 109 18 110/57 96 10/12/17 23:57 10/12/17 23:57 10/12/17 23:57 10/12/17 23:57 10/12/17 23:57 General appearance: Present: cooperative, A&O X 3, pleasant, no acute distress, obese, answers questions appropriately - Head Head exam: Present: atraumatic, normocephalic - Eye Eye exam: Present: PERRL, conjuntiva pink, sclera anicteric Pupils: Present: PERRL - ENT ENT exam: Present: normal exam - Neck Neck exam general surgery: Present: normal inspection, supple, trachea midline. Absent: lymphadenopathy - Respiratory Respiratory exam: Present: CTAB. Absent: accessory muscle use, rales, rhonchi, wheezes - Cardiovascular Cardiovascular exam: Present: +S1, +S2, tachycardia. Absent: diastolic murmur, gallop, rubs, systolic murmur - GI/Abdominal GI/Abdominal exam: Present: normal bowel sounds, soft, no peritoneal signs. Absent: distended, tenderness - Rectal Rectal exam: Present: deferred - Additional comments: exam deferred. - Extremities Exam Extremities exam: Present: warm, radial pulses palpable and symmetrical. Absent : calf tenderness, cyanotic, pedal edema - Back Exam Back exam: Present: normal inspection - Neurological Exam Neurological exam: Present: CN II-XII intact, oriented X3, no focal deficits. Absent: pronater drift, facial droop, speech deficit - Psychiatric Psychiatric exam: Present: normal affect, normal mood - Skin Skin exam: Present: dry, intact Internal Med - H&P Results - Labs CBC & Chem 7: 10/12/17 13:29 10/12/17 13:29 <Burt Pace P - Last Filed: 10/13/17 04:18> Date of Encounter: 10/13/17 Internal Medicine - H&P: HPI History of present illness: Ms. Thomas is a 77 year old female All Systems PM: A 10-system review of systems was performed and is negative for pertinent findings except as documented above in the HPI. - Constitutional Vitals: Temp Pulse Resp BP Pulse Ox 98.1 F 97 19 115/73 97 10/13/17 02:20 10/13/17 02:20 10/13/17 02:20 10/13/17 02:20 10/13/17 02:05 Internal Med - H&P Results - Labs CBC & Chem 7: 10/13/17 01:08 10/13/17 01:08 Labs: Short CBC 10/13/17 Range/Units 01:08 WBC 8.1 (4.3-11.1) K/mcL Hgb 7.0 L (11.5-15.4) g/dL Hct 24.7 L (35.3-44.9) % Plt Count 186 (140-400) K/mcL Neutrophils # 6.4 (1.6-8.9) K/mcL BMP 10/13/17 01:08 Sodium 138 Potassium 4.3 Chloride 100 Carbon Dioxide 34 H BUN 11 Creatinine 0.50 L Glucose 151 H Calcium 8.9 Liver Function 10/13/17 Range/Units 01:08 Total Bilirubin 0.2 L (0.3-1.0) mg/dL AST 8 L (13-39) Units/L ALT 9 (7-52) Units/L Alkaline Phosphatase 94 (34-104) Units/L Albumin 2.3 L (3.5-5.7) g/dL - Attending Attestation I examined this patient and my medical decision-making was reviewed with the Resident Physician/REFINING EQUIPMENT OPERATOR. I agree with the documented findings, disposition and treatment plan as described except to the extent set forth below.
[2017-10-13] MEDS ORDERED: *HR* Dextrose 50 % in Water (Syg) 50 ML SYRINGE IVP PRN (00:43)
[2017-10-13] MEDS ORDERED: D5% in Water 1,000 ML IVC PRN (00:43)
[2017-10-13] MEDS ORDERED: Dextrose Gel 15 GM/37.5 ML TUBE PO PRN ×2 (00:43)
[2017-10-13 01:35] LABS: Hematocrit 24.7 % (35.3-44.9); Mean Corpuscular HGB Conc 28.3 g/dL (31.6-35.5); Mean Corpuscular Hemoglobin 26.7 pg (28.0-33.3); Mean Corpuscular Volume 94.3 fL (83.0-100.0); Mean Platelet Volume 9.2 fL (9.4-12.4); Monocytes % 8.4 %; Red Blood Count 2.62 M/mcL (3.82-4.97); Red Cell Distribution Width 18.6 % (11.5-14.5)
[2017-10-13 01:37] LABS: Basophils % 0.1 %; Eosinophils % 0.4 %; Immature Granulocytes % 0.6 % (0-4); Lymphocytes % 12.1 %; Monocytes # 0.7 K/mcL (0.0-1.3); Nucleated Red Blood Cells 0.2 /100 WBC (0); Platelet Count 186 K/mcL (140-400); Segmented Neutrophils % 78.4 %
[2017-10-13] MEDS ORDERED: 0.9 % Sodium Chloride 250 ML ONE (01:37)
[2017-10-13 01:42] LABS: Hemoglobin A1C 6.6 %
[2017-10-13 01:54] LABS: Chol/HDL Ratio 3.7 (0-4.9); Magnesium 1.8 mg/dL (1.6-2.6)
[2017-10-13 02:02] LABS: Alanine Aminotransferase 9 Units/L (7-52); Albumin 2.3 g/dL (3.5-5.7); Albumin/Globulin Ratio 0.5 (1.1-2.2); Alkaline Phosphatase 94 Units/L (34-104); Aspartate Amino Transferase 8 Units/L (13-39); BUN/Creatinine Ratio 22 (6-26); Bilirubin,Total 0.2 mg/dL (0.3-1.0); Blood Urea Nitrogen 11 mg/dL (8-23); Calcium 8.9 mg/dL (8.6-10.3); Carbon Dioxide 34 mEq/L (23-29); Chloride 100 mEq/L (98-107); Globulin 4.5 g/dL (2.4-3.5); Glucose 151 mg/dL (70-105); Osmolality,Calculated 288 (280-300); Potassium 4.3 mEq/L (3.5-5.1); Sodium 138 mEq/L (136-145); Total Protein 6.8 g/dL (6.4-8.9); eGFR For African Americans > 60 (> 60); eGFR For Non-African Americans > 60 (> 60)
[2017-10-13 02:09] LABS: Thyroid Stimulating Hormone 2.579 mcIU/mL (0.340-5.600)
[2017-10-13 02:31] LABS: Neutrophils # 6.4 K/mcL (1.6-8.9)
[2017-10-13 03:06] LABS: Platelet Estimate Normal (Normal)
[2017-10-13 03:07] LABS: Anisocytosis 1+ (Not Present); Hypochromasia Present (Not Present)
[2017-10-13] MEDS ORDERED: Ipratropium/Albuterol Neb 3 ML IH PRN (04:00)
[2017-10-13 06:52] LABS: Hematocrit 30.6 % (35.3-44.9)
[2017-10-13 07:01] LABS: Hemoglobin 8.9 g/dL (11.5-15.4)
[2017-10-13] MEDS: Insulin LISPRO 300 UNITS/3 ML VIAL SQ SCH ×3 (07:59→16:40)
--- NOTE | 2017-10-13 09:52 | Internal Med Progress Note ---
Date of Encounter: 10/13/17 Time of Encounter: 09:50 - Assessment and plan (1) Symptomatic anemia Current Visit: Yes Status: Acute Assessment and plan: We will check iron studies including ferritin. She might be iron deficient. This possibly could be secondary to chemotherapy and radiation as well. She has no signs of bleeding. For now no need to transfuse again. We will check labs in the morning and if they are stable will discharge. She is not interesting getting any scopes at the moment however if her hemoglobin drops again and she is willing to consider. We will continue to monitor. (2) Tachycardia Current Visit: Yes Status: Acute Assessment and plan: Improving after transfusion. We will continue to monitor. (3) COPD (chronic obstructive pulmonary disease) Current Visit: Yes Status: Chronic Assessment and plan: Stable. Continue with inhalers. She is on chronic O2. Qualifiers: COPD type: emphysema Emphysema type: centrilobular Qualified Code(s): J43.2 - Centrilobular emphysema (4) Diabetes mellitus Current Visit: Yes Status: Chronic Assessment and plan: Continue with insulin sliding scale. Continue with Accu-Cheks. Qualifiers: Diabetes mellitus type: type 2 Diabetes mellitus complication status: without complication Diabetes mellitus penitentiary insulin use: without exterminator termite use Qualified Code(s): E11.9 - Type 2 diabetes mellitus without complications (5) Non-small cell carcinoma of lung Current Visit: Yes Status: Chronic Assessment and plan: She has an appointment with oncology on Sunday 10/15. We will leave management of that to them. He tells me she finished chemotherapy and radiation. (6) DVT prophylaxis Current Visit: Yes Status: Acute Assessment and plan: SCDs. - Subjective Interval history: Patient seen and examined. No acute events. She is asking me to be discharged. Has been afebrile. She had to get transfused 2 units yesterday on admission. Hemoglobin on admission was 6.5. The patient's last chemotherapy and radiation was on September 17 and she finished chemotherapy and radiation treatments and has an appointment with oncology for her lung cancer on Sunday. She was given routine blood work per her primary care physician. She denies any bleeding. Her stools were negative for blood. Hemoglobin is up to 8.9 this morning. - Constitutional Vitals: Temp Pulse Resp BP Pulse Ox 97.6 F 96 20 131/76 97 10/13/17 07:42 02/17/18 07:42 10/13/17 07:42 10/13/17 07:42 10/13/17 07:42 General appearance: Present: cooperative, A&O X 3, pleasant, no acute distress, obese, answers questions appropriately Exam: GEN: NAD CVS: RRR. S1, S2, No m/r/g RESP: diminshed bilaterally ABD: Soft, NT, ND, +BS EXT: No edema. 2+ DP. No rashes NEURO: Nonfocal Internal Medicine: Result - Labs CBC & Chem 7: 10/13/17 06:27 10/13/17 01:08 Labs: Short CBC 10/13/17 10/13/17 Range/Units 01:08 06:27 WBC 8.1 (4.3-11.1) K/mcL Hgb 7.0 L 8.9 L D (11.5-15.4) g/dL Hct 24.7 L 30.6 L (35.3-44.9) % Plt Count 186 (140-400) K/mcL Neutrophils # 6.4 (1.6-8.9) K/mcL BMP 10/13/17 01:08 Sodium 138 Potassium 4.3 Chloride 100 Carbon Dioxide 34 H BUN 11 Creatinine 0.50 L Glucose 151 H Calcium 8.9 Liver Function 10/13/17 Range/Units 01:08 Total Bilirubin 0.2 L (0.3-1.0) mg/dL AST 8 L (13-39) Units/L ALT 9 (7-52) Units/L Alkaline Phosphatase 94 (34-104) Units/L Albumin 2.3 L (3.5-5.7) g/dL Consult Discharge Plan - Plan Referrals: Purvi Rey [Primary Care Provider] -
[2017-10-13 09:55] LABS: Hematocrit 29.5 % (35.3-44.9); Hemoglobin 8.5 g/dL (11.5-15.4)
[2017-10-13] MEDS: Furosemide 20 MG/2 ML VIAL IVP SCH ×3 (09:55→23:10)
[2017-10-13] MEDS: Gabapentin 300 MG CAPSULE PO SCH ×3 (09:55→23:10)
[2017-10-13] MEDS: COD LIVER OIL PO SCH (09:56)
[2017-10-13] MEDS: (Garlic [Garlic] 1,000 MG) PO SCH (09:56)
[2017-10-13] MEDS: Budesonide/Formoterol 160/4.5 MDI IH SCH ×2 (12:28→19:38)
[2017-10-13] MEDS ORDERED: Insulin LISPRO 300 UNITS/3 ML VIAL SQ SCH (21:00)
[2017-10-14 05:14] LABS: Basophils % 0.4 %; Eosinophils % 0.6 %; Hematocrit 29.9 % (35.3-44.9); Hemoglobin 8.6 g/dL (11.5-15.4); Mean Corpuscular HGB Conc 28.8 g/dL (31.6-35.5); Red Cell Distribution Width 18.6 % (11.5-14.5)
[2017-10-14 05:16] LABS: Immature Granulocytes % 0.7 % (0-4); Lymphocytes # 1.1 K/mcL (0.6-4.6); Lymphocytes % 15.9 %; Mean Corpuscular Volume 93.7 fL (83.0-100.0); Mean Platelet Volume 8.5 fL (9.4-12.4); Monocytes # 0.7 K/mcL (0.0-1.3); Monocytes % 10.2 %; Neutrophils # 4.9 K/mcL (1.6-8.9); Platelet Count 178 K/mcL (140-400); Red Blood Count 3.19 M/mcL (3.82-4.97); Segmented Neutrophils % 72.2 %
[2017-10-14 05:32] LABS: Alanine Aminotransferase 9 Units/L (7-52); Albumin 2.7 g/dL (3.5-5.7); Albumin/Globulin Ratio 0.6 (1.1-2.2); Alkaline Phosphatase 104 Units/L (34-104); Aspartate Amino Transferase 6 Units/L (13-39); BUN/Creatinine Ratio 29 (6-26); Bilirubin,Total 0.2 mg/dL (0.3-1.0); Blood Urea Nitrogen 12 mg/dL (8-23); Calcium 9.4 mg/dL (8.6-10.3); Carbon Dioxide 35 mEq/L (23-29); Chloride 100 mEq/L (98-107); Globulin 4.8 g/dL (2.4-3.5); Glucose 120 mg/dL (70-105); Osmolality,Calculated 289 (280-300); Potassium 4.5 mEq/L (3.5-5.1); Sodium 139 mEq/L (136-145); Total Protein 7.5 g/dL (6.4-8.9); eGFR For African Americans > 60 (> 60); eGFR For Non-African Americans > 60 (> 60)
[2017-10-14 05:42] LABS: Hypochromasia Present (Not Present); Platelet Estimate Normal (Normal)
[2017-10-14 07:40] VITALS: BP 118/74
[2017-10-14] MEDS: Budesonide/Formoterol 160/4.5 MDI IH SCH (08:03)
[2017-10-14] MEDS: Insulin LISPRO 300 UNITS/3 ML VIAL SQ SCH (08:04)
[2017-10-14] MEDS: COD LIVER OIL PO SCH (08:08)
[2017-10-14] MEDS: Furosemide 20 MG/2 ML VIAL IVP SCH (08:08)
[2017-10-14] MEDS: (Garlic [Garlic] 1,000 MG) PO SCH (08:08)
[2017-10-14] MEDS: Gabapentin 300 MG CAPSULE PO SCH (08:08)
--- NOTE | 2017-10-14 08:40 | Electrocardiograph Report ---
[place] [facility] Test Date: 2017-10-12 Pat Name: Fernanda Thomas Department: 102 Room: 2A33 Gender: F Loading Manager: Malik : 1940 Requested By: Rad Triana Order Number: [id number] Reading MD: Augustin Elliott MD Measurements Intervals [place] Rate: 107 P: -7 CO: 171 QRS: 1 QRSD: 90 T: 85 QT: 309 QTc: 372 Interpretive Statements SINUS TACHYCARDIA NONSPECIFIC T-WAVE ABNORMALITY ABNORMAL RHYTHM ECG Electronically Signed On 10-14-2017 8:39:07 EST by Augustin Elliott MD
--- NOTE | 2017-10-14 09:40 | Discharge Summary ---
Date of Encounter: 10/14/17 Time of Encounter: 09:40 - Discharge Diagnosis (1) Symptomatic anemia Priority: Primary Status: Acute (2) Tachycardia Priority: Primary Status: Acute (3) COPD (chronic obstructive pulmonary disease) Priority: Secondary Status: Chronic Qualifiers: COPD type: emphysema Emphysema type: centrilobular Qualified Code(s): J43.2 - Centrilobular emphysema (4) Diabetes mellitus Priority: Secondary Status: Chronic Qualifiers: Diabetes mellitus type: type 2 Diabetes mellitus complication status: without complication Diabetes mellitus terminal operator insulin use: without detention use Qualified Code(s): E11.9 - Type 2 diabetes mellitus without complications (5) Non-small cell carcinoma of lung Priority: Secondary Status: Chronic - Discharge Medications Home Medications: Allopurinol [Zyloprim] 300 mg PO BID 03/15/17 [History] Cod Liver Oil 1 each PO DAILY 03/15/17 [History] Gabapentin [Neurontin] 600 mg PO TID 03/15/17 [History] Garlic 1,000 mg PO DAILY 03/15/17 [History] Levothyroxine [Synthroid] 88 mcg PO 0630 03/15/17 [History] Meloxicam [Mobic] 15 mg PO DAILY 03/15/17 [History] Albuterol Sulfate [Albuterol Inhaler] 1 puff IH Q4HR PRN #1 hfa.aer.ad 03/22/17 [Rx] Budesonide/Formoterol 160/4.5 [Symbicort 160/4.5] 2 puff IH BIDR #1 inh [Rx] glyBURIDE [GlyBURIDE] 5 mg PO BID 04/27/17 [History] Docusate Sodium [Colace] 100 mg PO BID PRN 06/18/17 [History] Montelukast [Singulair] 10 mg PO DAILY 09/28/17 [History] Ipratropium/Albuterol Neb [Duoneb] 3 ml IH Q6H PRN 10/12/17 [History] Allergies/Adverse Reactions: 3 Allergy/AdvReac Type Severity Reaction Status Date / Time metformin Allergy Hives Verified 10/12/17 13:14 Penicillins [PCN] Allergy Anaphylaxis Verified 10/12/17 13:14 Date of admission: 10/13/17 11:19 Primary care physician: Purvi Rey - Patient Status Disposition: Home, Self-Care Condition: Fair Overall status at discharge: patient is progressing back to baseline - Discharge Instructions Instructions: Iron Rich Diet (DC), Chronic Hypertension (DC), Anemia (DC) Follow Up With: Purvi Rey [Primary Care Provider] - - Diet and Activity Activity: increase activity as tolerated, wear oxygen at all times Diet: diabetic diet Hospital course: Ms. Thomas is a 77 year old female with medical history of gout, diabetes, thyroid disease, squamous cell carcinoma of the left lung, and rheumatoid arthritis presents from the ED with chief complaint of abnormal lab values, particularly low hemoglobin, and severe weakness and fatigue for the past 3-4 days. Patient reports she finished chemotherapy treatments 2 weeks ago. She was found to have a hemoglobin of 6.5. She was transfused 2 units on admissions. Her hemoglobin remained stable after that. At baseline she does have a low hemoglobin. Her iron studies showed anemia of chronic disease. She had negative FOBT. She showed no signs of bleeding. She was hemodynamically stable throughout her stay. She was discharged on 10/14/2017. The patient preferred being discharged over waiting to be evaluated by GI. I honored the patient's wishes. She did not need to be seen by GI urgently. If needed this can be set up as an outpatient for a colonoscopy. Discharge hemoglobin was 8.6. - Time Spent with Patient Total time spent providing and/or coordinating discharge services: Greater than 30 minutes - Constitutional Vitals: Temp Pulse Resp BP Pulse Ox 98.2 F 98 16 118/74 95 10/14/17 07:36 10/14/17 07:36 10/14/17 08:05 10/14/17 07:36 10/14/17 08:05 General appearance: Present: cooperative, A&O X 3, pleasant, no acute distress, obese, answers questions appropriately Exam: GEN: NAD CVS: RRR. S1, S2, No m/r/g RESP: diminshed bilaterally ABD: Soft, NT, ND, +BS EXT: No edema. 2+ DP. No rashes NEURO: Nonfocal
--- NOTE | 2017-10-14 11:09 | Physician Discharge Referral ---
- Diagnosis (1) Symptomatic anemia Priority: Primary Status: Acute (2) Tachycardia Priority: Primary Status: Acute (3) COPD (chronic obstructive pulmonary disease) Priority: Secondary Status: Chronic (4) Diabetes mellitus Priority: Secondary Status: Chronic (5) Non-small cell carcinoma of lung Priority: Secondary Status: Chronic - Respiratory Orders Smoking Cessation: Smoking cessation has been advised. For more information, call the [place] Tobacco Quit Line at 2-337-TGGN-NOW. - Services Needed Following services are medically necessary services: Nursing, Home Health Aide, Physical Therapy, Occupational Therapy - Transfer Medications Home Medications: Allopurinol [Zyloprim] 300 mg PO BID 03/15/17 [History] Cod Liver Oil 1 each PO DAILY 03/15/17 [History] Gabapentin [Neurontin] 600 mg PO TID 03/15/17 [History] Garlic 1,000 mg PO DAILY 03/15/17 [History] Levothyroxine [Synthroid] 88 mcg PO 0630 03/15/17 [History] Meloxicam [Mobic] 15 mg PO DAILY 03/15/17 [History] Albuterol Sulfate [Albuterol Inhaler] 1 puff IH Q4HR PRN #1 hfa.aer.ad 03/22/17 [Rx] Budesonide/Formoterol 160/4.5 [Symbicort 160/4.5] 2 puff IH BIDR #1 inh [Rx] glyBURIDE [GlyBURIDE] 5 mg PO BID 04/27/17 [History] Docusate Sodium [Colace] 100 mg PO BID PRN 06/18/17 [History] Montelukast [Singulair] 10 mg PO DAILY 09/28/17 [History] Ipratropium/Albuterol Neb [Duoneb] 3 ml IH Q6H PRN 10/12/17 [History] Allergies/Adverse Reactions: 3 Allergy/AdvReac Type Severity Reaction Status Date / Time metformin Allergy Hives Verified 10/12/17 13:14 Penicillins [PCN] Allergy Anaphylaxis Verified 10/12/17 13:14 Certification: Further, I certify that my clinical findings support that this patient is homebound (i.e. absences from home require considerable and taxing effort and are for medical reasons or evangelical services or infrequently or short duration when for other reasons) because: Homebound Reason: Patient requires assistance of a person or device to safely leave home Attestation: My signature below is to certify that this patient is under my care and that I, or nurse practitioner, or a physician's dental assistant teacher working with me, has a face-to -face encounter with this patient.
== END 2017-10-14 10:10 | disposition home or self-care (01) | DRG 812 ==
LOC: EMEROO 12:55 → 2ANU 12:55
PROVIDERS: ADMIT Registered Nurse; ATTEND Registered Nurse

== ENCOUNTER 2017-10-22 11:19 | Observation (INO) ==
[2017-10-22 13:23] LABS: INR 1.5
[2017-10-22 13:28] LABS: Hematocrit 28.7 % (35.3-44.9); Hemoglobin 8.6 g/dL (11.5-15.4); Mean Corpuscular Hemoglobin 27.6 pg (28.0-33.3); Mean Platelet Volume 9.3 fL (9.4-12.4); Platelet Count 233 K/mcL (140-400); Red Blood Count 3.12 M/mcL (3.82-4.97); Red Cell Distribution Width 19.1 % (11.5-14.5)
[2017-10-22 13:36] LABS: BUN/Creatinine Ratio 52 (6-26); Blood Urea Nitrogen 25 mg/dL (8-23); Calcium 9.2 mg/dL (8.6-10.3); Carbon Dioxide 32 mEq/L (23-29); Chloride 96 mEq/L (98-107); Glucose 213 mg/dL (70-105); Osmolality,Calculated 289 (280-300); Potassium 4.6 mEq/L (3.5-5.1); Sodium 134 mEq/L (136-145); eGFR For Non-African Americans > 60 (> 60)
--- NOTE | 2017-10-22 14:10 | Emergency Department Note ---
Disposition Clinical Impression: Generalized weakness, Hyperglycemia Anemia Qualifiers: Anemia type: unspecified type Qualified Code(s): D64.9 - Anemia, unspecified Disposition: Admitted As Inpatient Condition: Fair Weakness HPI - General Chief complaint: ED Weakness Stated complaint: Low Bp/Weakness/SOB Time Seen by Provider: 10/22/17 12:16 Source: patient, family Mode of arrival: private vehicle Limitations: no limitations Nursing Notes Reviewed: Yes Vital Signs Reviewed: Yes - History of Present Illness HPI Narrative: 77-year-old female history of lung cancer who presents to the ER with a chief complaint of generalized weakness. Family reports earlier today showed an episode where she was tachycardic as well as hypotensive. States it lasted for less than an hour. Reports it happened several times recently. She has been admitted twice recently for anemia requiring transfusion. She has received 2 units of blood within the last week due to recurring anemia. They are unsure of the source is coming from. She denies any chest pain. She has baseline shortness of breath and cough which has been present since her cancer diagnosis in February. No new changes in her medications. No other complaints. Pt Subjective Complaint: generalized weakness/fatigue Onset (ago): day(s) Duration: now resolved Location: generalized Migration: none Pain Severity: none Pain Scale: 5 Improves with: none Worsens with: none Associated symptoms: Reports: fever/chills (Subjective). Denies: chest pain, nausea/vomiting - Related Data Home Medications Medication Instructions Recorded Confirmed Allopurinol [Zyloprim] 300 mg PO BID 03/15/17 10/22/17 Cod Liver Oil 1 each PO DAILY 03/15/17 10/22/17 Gabapentin [Neurontin] 600 mg PO TID 03/15/17 10/22/17 Garlic 1,000 mg PO DAILY 03/15/17 10/22/17 Levothyroxine [Synthroid] 88 mcg PO 0630 03/15/17 10/22/17 Meloxicam [Mobic] 15 mg PO DAILY 03/15/17 10/22/17 glyBURIDE [GlyBURIDE] 5 mg PO BID 04/27/17 10/22/17 Docusate Sodium [Colace] 100 mg PO BID PRN 06/18/17 10/22/17 Montelukast [Singulair] 10 mg PO DAILY 09/28/17 10/22/17 Ipratropium/Albuterol Neb [Duoneb] 3 ml IH Q6H PRN 10/12/17 10/22/17 Previous Rx's Medication Instructions Recorded Albuterol Sulfate [Albuterol 1 puff IH Q4HR PRN #1 hfa.aer.ad 03/22/17 Inhaler] Budesonide/Formoterol 160/4.5 2 puff IH BIDR #1 inh 03/22/17 [Symbicort 160/4.5] Guaifenesin [Mucinex] 600 mg PO Q12H #30 tab.er.12h 10/15/17 Allergies Allergy/AdvReac Type Severity Reaction Status Date / Time metformin Allergy Hives Verified 10/22/17 11:24 Penicillins [PCN] Allergy Anaphylaxis Verified 10/22/17 11:24 All systems ED: reviewed and negative except as stated. Constitutional: Reports: fever (Subjective) Cardiovascular: Denies: chest pain, palpitations Respiratory: Denies: cough, dyspnea, wheezes Gastrointestinal: Denies: abdominal pain, nausea, vomiting Past Medical History - Past Medical History Attestation: Yes The following information was validated with the patient. Source: patient, old records reviewed Medical history: Reports: cancer, diabetes, RA, other Surgical history: Reports: cholecystectomy, hysterectomy (Total) Psychiatric history: Reports: no psych history ARGON TESTER history: Reports: no ARGON TESTER history - Social History Smoking Status: Former smoker Smokeless Tobacco Status: No Alcohol use: Reports: none Drug use: Reports: none Physical Exam - General Limitations: no limitations General appearance: alert, in no apparent distress - Head Head exam: atraumatic, normocephalic - Eye Eye exam: Present: normal appearance - ENT ENT exam: normal exam - Neck Neck exam: Present: normal inspection, full ROM - Chest Chest inspection: Present: normal inspection, symmetric chest wall rise - Respiratory Respiratory exam: Present: other (Diminished on the right. Relatively absent on the left.) - Cardiovascular Cardiovascular exam: Present: normal rhythm, tachycardia, normal heart sounds - Abdominal Exam Abdominal exam: Present: soft, Non-Tender. Absent: tenderness - Extremities Exam Extremities exam: Present: normal inspection, full ROM - Expanded Upper Extremity Exam Shoulder exam: Present: normal inspection, full ROM Arm exam: Present: normal inspection, full ROM Elbow exam: Present: normal inspection, full ROM Forearm/Wrist exam: Present: normal inspection, full ROM Hand exam: Present: normal inspection, full ROM - Expanded Lower Extremity Exam Hip/Pelvis exam: Present: normal inspection, full ROM Upper leg exam: Present: normal inspection, full ROM Knee exam: Present: normal inspection, full ROM Lower leg exam: Present: normal inspection, full ROM Ankle exam: Present: normal inspection, full ROM Foot/toe exam: Present: normal inspection, full ROM - Skin Skin exam: Present: warm, dry Course Course Narrative: Patient seen and examined. Vital signs reviewed. An EKG, chest x-ray as well as labs including troponin. She has also been anemic several times in the past. We will get a CBC, type and screen as was coabethanie's. Vital Signs Temperature 98.5 F 10/22/17 11:26 Pulse Rate 105 10/22/17 11:26 Respiratory Rate 14 10/22/17 11:26 Blood Pressure 112/67 10/22/17 11:26 O2 Sat by Pulse Oximetry 90 10/22/17 11:26 Temperature 98.5 F 10/22/17 11:26 Pulse Rate 105 10/22/17 11:26 Respiratory Rate 14 10/22/17 11:26 Blood Pressure 112/67 10/22/17 11:26 O2 Sat by Pulse Oximetry 97 10/22/17 12:40 Oxygen Delivery Oxygen Delivery Room Air Weakness - MDM Narrative Medical decision making narrative: 77-year-old female with previous lung cancer presents to the ER due to generalized weakness, hypotension, tachycardia. She had an episode earlier today where her blood pressure dropped and her heart rate went out. States that she has felt weak lately at home. They are currently concerned about her safety at [place] She has no chest pain. Shortness of breath which is a sign for her. No objective fevers. EKG here is without ischemic findings. Chest x-ray shows continued white out of the left lung. Labs show a stable anemia. She is admitted for observation due to hypotension, weakness, inability to care for herself at home. - Lab Data Lab results reviewed: Yes I reviewed the patient's lab results. Result diagrams: 10/22/17 13:04 10/22/17 13:04 Lab Results 10/22/17 10/22/17 10/22/17 Range/Units 13:04 13:04 13:04 WBC 10.2 (4.3-11.1) K/mcL RBC 3.12 L (3.82-4.97) M/mcL Hgb 8.6 L (11.5-15.4) g/dL Hct 28.7 L (35.3-44.9) % MCV 92.0 (83.0-100.0) fL MCH 27.6 L (28.0-33.3) pg MCHC 30.0 L (31.6-35.5) g/dL RDW 19.1 H (11.5-14.5) % Plt Count 233 (140-400) K/mcL MPV 9.3 L (9.4-12.4) fL PT (9.4-12.1) Seconds INR Sodium 134 L (136-145) mEq/L Potassium 4.6 (3.5-5.1) mEq/L Chloride 96 L (98-107) mEq/L Carbon Dioxide 32 H (23-29) mEq/L BUN 25 H (8-23) mg/dL Creatinine 0.48 L (0.60-1.20) mg/dL Est GFR ( Amer) > 60 (> 60) Est GFR (Non-Af Amer) > 60 (> 60) BUN/Creatinine Ratio 52 H (6-26) Glucose 213 H (70-105) mg/dL Calculated Osmolality 289 (280-300) Calcium 9.2 (8.6-10.3) mg/dL Troponin I 0.03 (< 0.04) ng/mL Blood Type Antibody Screen 10/22/17 10/22/17 Range/Units 13:04 13:04 WBC (4.3-11.1) K/mcL RBC (3.82-4.97) M/mcL Hgb (11.5-15.4) g/dL Hct (35.3-44.9) % MCV (83.0-100.0) fL MCH (28.0-33.3) pg MCHC (31.6-35.5) g/dL RDW (11.5-14.5) % Plt Count (140-400) K/mcL MPV (9.4-12.4) fL PT 16.0 H (9.4-12.1) Seconds INR 1.5 Sodium (136-145) mEq/L Potassium (3.5-5.1) mEq/L Chloride (98-107) mEq/L Carbon Dioxide (23-29) mEq/L BUN (8-23) mg/dL Creatinine (0.60-1.20) mg/dL Est GFR ( Amer) (> 60) Est GFR (Non-Af Amer) (> 60) BUN/Creatinine Ratio (6-26) Glucose (70-105) mg/dL Calculated Osmolality (280-300) Calcium (8.6-10.3) mg/dL Troponin I (< 0.04) ng/mL Blood Type A NEGATIVE Antibody Screen NEGATIVE - Radiology Data Radiology results reviewed: Yes I reviewed the patient's radiology results. Chest X-Ray 10/22/17 11:34 IMPRESSION: Stable chest with near complete opacification of the left hemithorax. Please refer to the chest CT report from 09/27/2017 for further details. D/ / Mario Harris MD / Mario Harris MD Interpreting Provider: Mario Harris MD - EKG Data EKG attestation: Yes I reviewed and interpreted this EKG. EKG results narrative: EKG demonstrates sinus rhythm with a rate of 85 bpm. Normal axis. Normal intervals. Normal R-wave progression. No gross ST elevations or depressions. No acute ischemic findings. Attestation Statement - Attestation Attestation: I examined this patient and my medical decision-making was reviewed with the Resident Physician, Dr. Aguilar. I agree with the documented findings, disposition and treatment plan as described except to the extent set forth below. Patient is a 77-year-old white female who presents to emergency Department with complaints of generalized weakness with history of lung cancer. Patient has been admitted multiple times for anemia requiring blood transfusion. Family was concerned because they state that she has had an elevated heart rate and low blood pressure intermittently over the past 24 hours. Patient tachycardic and hypotensive here on arrival to the ED but has no pain complaints. I agree with patient's physical exam findings as documented. Patient had lab evaluation, EKG. EKG shows a sinus rhythm with no acute ischemia. Laboratory evaluation shows an anemia that is stable over time, no significant drop from prior recent hemoglobin levels. Remainder of labs at this time are unremarkable and there is no significant change, patient's chest x -ray shows a lex out of the left hemithorax which is chronic secondary to her left upper lobe mass and opacification and compression of her bronchitis. Patient was seen by social media campaign manager and will be admitted for ongoing supportive management.
[2017-10-22] MEDS ORDERED: Naloxone 0.4 MG/ML INJ IVP PRN (22:23)
[2017-10-22] MEDS ORDERED: Ipratropium/Albuterol Neb 3 ML IH PRN (22:30)
[2017-10-22] MEDS ORDERED: Dextrose Gel 15 GM/37.5 ML TUBE PO PRN ×2 (22:34)
[2017-10-22] MEDS ORDERED: D5% in Water 1,000 ML IVC PRN (22:34)
[2017-10-22] MEDS ORDERED: *HR* Dextrose 50 % in Water (Syg) 50 ML SYRINGE IVP PRN (22:34)
--- NOTE | 2017-10-22 23:51 | Internal Med History&Physical ---
<Shantel Machado - Last Filed: 10/23/17 01:06> Date of Encounter: 10/23/17 Time of Encounter: 21:00 Assessment and Plan (1) Weakness Current visit: Yes Status: Acute Multiple factors including lung cancer s/p radiation and chemo, left lung collapse, loss of appetite, anemia, and episodes of tachycardia and hypotension likely related to anemia. Per ED documentation, family concerned she is unable to care for herself living alone at home. - Recheck bmp and cbc in AM - PT/OT consulted - fall precautions - airfield services officer consulted (2) Non-small cell cancer of left lung Current visit: Yes Status: Chronic (3) Anemia Current visit: Yes Status: Chronic Current Hgb 8.6, baseline appears to be around 8.5 since August 2017. Anemia appears to be chronic, extending back to February 2017. No signs of active bleeding , pt denies seeing blood in stool, urine, or sputum. - repeat cbc in AM - fall precautions - monitor for signs of active bleeding Qualifiers: Anemia type: unspecified type Qualified Code(s): D64.9 - Anemia, unspecified (4) Urinary incontinence, nocturnal enuresis Current visit: Yes Status: Acute Pt denies burning with urination, hematuria, cloudy urine. Able to sense urge to void. Dribbling and inability to reach the bathroom quick enough. Sensation of incomplete bladder emptying. Tenderness to palpation in low-back to flank region bilaterally. - UA for signs of UTI (5) Type 2 diabetes mellitus Current visit: Yes Status: Chronic Not on insulin at home. SSI low dose. Accu-cheks TIDWM. Diabetic diet. Qualifiers: Diabetes mellitus complication status: without complication Diabetes mellitus senior care insulin use: without senior care use Qualified Code(s): E11.9 - Type 2 diabetes mellitus without complications (6) Hypothyroidism Current visit: Yes Status: Chronic Continue home synthroid Qualifiers: Hypothyroidism type: unspecified Qualified Code(s): E03.9 - Hypothyroidism , unspecified (7) Collapse of left lung Current visit: Yes Status: Acute Related to left main-stem endobronchial lesion that has occluded the entire left lung. CXR today showed near complete opacification of left hemithorax, unchanged since CXR done 09/27/17 during hospitalization. - optimize functionality of right lung with home COPD meds, bronchodilators (8) DVT prophylaxis Current visit: Yes Status: Acute Heparin 5,000 units SubQ Q12H. Monitor for signs of active bleeding. Fall precautions. Internal Medicine - H&P: HPI Chief complaint: weakness, hypotension, tachycardia Admitted From: Home History of present illness: Ms. Thomas is a 77 year old female with non-small cell lung carcinoma who presents to ED for continued weakness,and reported episodes of hypotension and tachycardia. Pt herself expresses concern about weakness and c/o cough productive of yellow sputum. She has some degree of weakness, SOB, and cough at baseline from her h/o COPD and lung scarring d/t radiation treatments and chemo. Weakness has been worse (feels "worn out" after walking short distances) since her last chemo treatment 09/17/17. Her cough has changed in that it is now productive of yellow sputum she feels is coming from her left lung and began after being prescribed Mucinex recently. She denies chest pain or chest pressure , but has chest tightness and left chest soreness she says is due to coughing. She admits to wheezing and denies hemoptysis. She admits she had sweats while breaking her "low-grade fever" of 99 F last week. Additionally has c/o new urinary incontinence at night over the last 3 days with dribbling and sensation of not emptying bladder after voiding; denies dysuria, cloudy urine, hematuria. Per ED documentation, family (not present when I saw pt) is concerned about pt' s inability to care for herself alone at home. In the ED, her initial vital signs showed she was afebrile, tachycardic of 105, and blood pressure 112/67. Her tachycardia improved to 88 bpm and BP increased to 149/73. Basic labwork shows white count WNL (10.2), Hgb 8.6, negative troponin. EKG shows NSR and was negative for signs of ischemia. Her CXR shows stable near-complete Lt hemithorax opacification, no pneumothorax on either side , no right sided pleural effusion. Past Med Surg Social Fam HX - Past Medical History Medical history: cancer, diabetes, RA, other Psychiatric history: no psych history - Past Surgical History Surgical History: cholecystectomy, hysterectomy - Social History Smoking Status: Former smoker Smokeless Tobacco Status: No Alcohol use: none Drug use: none - Family History Mother Family Member Ethnicity: Non- Living Status: Hx Family Cardiac Disorders: No Hx Family Respiratory Disorders: No Hx Family Cancer: Yes Hx Family GI Disorders: No Hx Family Endocrine Disorder: No Father Family Member Ethnicity: Non- Living Status: Hx Family Cardiac Disorders: Yes (HD) Hx Family Cancer: Yes (Prostate cancer) Brother Family Member Ethnicity: Non- Living Status: Still Living Hx Family Cardiac Disorders: No Hx Family Respiratory Disorders: No Hx Family Cancer: Yes (skin, bone) Hx Family GI Disorders: No Hx Family Endocrine Disorder: No Hx Family Neuromuscular Disorders: No Hx Family Neurologic Disorders: No Hx Family HEENT Disorders: No Hx Family Autoimmune Disorders: No Sister Family Member Ethnicity: Non- Living Status: Still Living Hx Family Cancer: Yes (Breast) Internal Medicine - H&P: Meds Allopurinol [Zyloprim] 300 mg PO BID 03/15/17 [History] Cod Liver Oil 1 each PO DAILY 03/15/17 [History] Gabapentin [Neurontin] 600 mg PO TID 03/15/17 [History] Garlic 1,000 mg PO DAILY 03/15/17 [History] Levothyroxine [Synthroid] 88 mcg PO 0630 03/15/17 [History] Meloxicam [Mobic] 15 mg PO DAILY 03/15/17 [History] Albuterol Sulfate [Albuterol Inhaler] 1 puff IH Q4HR PRN #1 [id number] 03/22/17 [Rx] Budesonide/Formoterol 160/4.5 [Symbicort 160/4.5] 2 puff IH BIDR #1 inh [Rx] glyBURIDE [GlyBURIDE] 5 mg PO BID 04/27/17 [History] Docusate Sodium [Colace] 100 mg PO BID PRN 06/18/17 [History] Montelukast [Singulair] 10 mg PO DAILY 09/28/17 [History] Ipratropium/Albuterol Neb [Duoneb] 3 ml IH Q6H PRN 10/12/17 [History] Guaifenesin [Mucinex] 600 mg PO Q12H #30 tab.er.12h 10/15/17 [Rx] 3 Allergy/AdvReac Type Severity Reaction Status Date / Time metformin Allergy Hives Verified 10/22/17 11:24 Penicillins [PCN] Allergy Anaphylaxis Verified 10/22/17 11:24 All Systems PM: A 10-system review of systems was performed and is negative for pertinent findings except as documented above in the HPI. - Constitutional Vitals: Temp Pulse Resp BP Pulse Ox 98.2 F 88 15 149/73 96 10/22/17 20:27 10/22/17 20:27 10/22/17 20:27 10/22/17 20:27 10/22/17 20:27 General appearance: Present: A&O X 3, no acute distress, answers questions appropriately - Head Head exam: Present: atraumatic, normocephalic - Eye Eye exam: Present: EOMI, normal appearance - ENT ENT exam: Present: mucous membranes moist - Neck Neck exam general surgery: Present: full ROM, trachea midline - Respiratory Respiratory exam: Present: decreased breath sounds, wheezes (bilateral). Absent : accessory muscle use, respiratory distress Additional comments: Left side breath sounds were absent - Cardiovascular Cardiovascular exam: Present: RRR, +S1, +S2. Absent: diastolic murmur, systolic murmur - Extremities Exam Extremities exam: Present: normal inspection, warm. Absent: cyanotic, pedal edema - Back Exam Back exam: Present: tenderness (lower back/flank areas bilaterally) - Neurological Exam Neurological exam: Present: alert, oriented X3, no focal deficits Internal Med - H&P Results - Labs CBC & Chem 7: 10/22/17 13:04 10/22/17 13:04 <Michael Braga T - Last Filed: 10/23/17 05:26> Date of Encounter: 10/23/17 Internal Medicine - H&P: HPI History of present illness: Ms. Thomas is a 77 year old female All Systems PM: A 10-system review of systems was performed and is negative for pertinent findings except as documented above in the HPI. - Constitutional Vitals: Temp Pulse Resp BP Pulse Ox 97.5 F L 89 15 149/72 97 10/23/17 03:35 10/23/17 03:35 10/23/17 03:35 10/23/17 03:35 10/23/17 03:35 Internal Med - H&P Results - Labs CBC & Chem 7: 10/23/17 04:19 10/23/17 04:19 Labs: Short CBC 10/22/17 10/22/17 10/23/17 Range/Units 20:30 23:31 04:19 WBC 8.4 (4.3-11.1) K/mcL RBC 3.23 L (3.82-4.97) M/mcL Hgb 8.7 L (11.5-15.4) g/dL Hct 30.1 L (35.3-44.9) % MCV 93.2 (83.0-100.0) fL MCH 26.9 L (28.0-33.3) pg MCHC 28.9 L (31.6-35.5) g/dL RDW 18.9 H (11.5-14.5) % Plt Count 247 (140-400) K/mcL MPV 9.2 L (9.4-12.4) fL Immature Gran % 0.6 (0-4) % Seg Neutrophils % 77.9 % Lymphocytes % 9.9 % Monocytes % 10.7 % Eosinophils % 0.7 % Basophils % 0.2 % Neutrophils # 6.5 (1.6-8.9) K/mcL Lymphocytes # 0.8 (0.6-4.6) K/mcL Monocytes # 0.9 (0.0-1.3) K/mcL Eosinophils # 0.1 (0.0-0.6) K/mcL Basophils # 0.0 (0.0-0.2) K/mcL Toxic Granulation Present A (Not Present) Platelet Estimate Normal (Normal) Hypochromasia Present A (Not Present) Anisocytosis 1+ A (Not Present) PT (9.4-12.1) Seconds INR Sodium (136-145) mEq/L Potassium (3.5-5.1) mEq/L Chloride (98-107) mEq/L Carbon Dioxide (23-29) mEq/L BUN (8-23) mg/dL Creatinine (0.60-1.20) mg/dL Est GFR ( Amer) (> 60) Est GFR (Non-Af Amer) (> 60) BUN/Creatinine Ratio (6-26) Glucose (70-105) mg/dL POC Glucose 113 H (58-89) Calculated Osmolality (280-300) Calcium (8.6-10.3) mg/dL Urine Color Yellow (Yellow) Urine Clarity Cloudy A (Clear) Urine pH 6.0 (5.0-8.0) pH Units Ur Specific [place] 1.024 (1.010-1.025) Urine Protein Trace (Neg-Trace) mg/dL Urine Glucose (UA) Normal (Normal) mg/dL Urine Ketones Negative (Negative) mg/dL Urine Blood Negative (Negative) Urine Nitrite Negative (Negative) Urine Bilirubin Negative (Negative) Urine Urobilinogen Normal (Normal) mg/dL Ur Leukocyte Esterase Moderate H (Negative) Urine Microscopic RBC 0-3 (0-3) per hpf Urine Microscopic WBC 50-100 H (0-3) per hpf Ur Squamous Epith Cells Many H (None-Few) per lpf Urine Bacteria None Seen (None-Few) per hpf Hyaline Casts None Seen (None-Few) per lpf Urine Yeast Test Not Performed 10/23/17 10/23/17 Range/Units 04:19 04:19 WBC (4.3-11.1) K/mcL RBC (3.82-4.97) M/mcL Hgb (11.5-15.4) g/dL Hct (35.3-44.9) % MCV (83.0-100.0) fL MCH (28.0-33.3) pg MCHC (31.6-35.5) g/dL RDW (11.5-14.5) % Plt Count (140-400) K/mcL MPV (9.4-12.4) fL Immature Gran % (0-4) % Seg Neutrophils % % Lymphocytes % % Monocytes % % Eosinophils % % Basophils % % Neutrophils # (1.6-8.9) K/mcL Lymphocytes # (0.6-4.6) K/mcL Monocytes # (0.0-1.3) K/mcL Eosinophils # (0.0-0.6) K/mcL Basophils # (0.0-0.2) K/mcL Toxic Granulation (Not Present) Platelet Estimate (Normal) Hypochromasia (Not Present) Anisocytosis (Not Present) PT 15.2 H (9.4-12.1) Seconds INR 1.4 Sodium 137 (136-145) mEq/L Potassium 4.4 (3.5-5.1) mEq/L Chloride 97 L (98-107) mEq/L Carbon Dioxide 36 H (23-29) mEq/L BUN 19 (8-23) mg/dL Creatinine 0.44 L (0.60-1.20) mg/dL Est GFR ( Amer) > 60 (> 60) Est GFR (Non-Af Amer) > 60 (> 60) BUN/Creatinine Ratio 43 H (6-26) Glucose 74 (70-105) mg/dL POC Glucose (58-89) Calculated Osmolality 285 (280-300) Calcium 9.3 (8.6-10.3) mg/dL Urine Color (Yellow) Urine Clarity (Clear) Urine pH (5.0-8.0) pH Units Ur Specific [place] (1.010-1.025) Urine Protein (Neg-Trace) mg/dL Urine Glucose (UA) (Normal) mg/dL Urine Ketones (Negative) mg/dL Urine Blood (Negative) Urine Nitrite (Negative) Urine Bilirubin (Negative) Urine Urobilinogen (Normal) mg/dL Ur Leukocyte Esterase (Negative) Urine Microscopic RBC (0-3) per hpf Urine Microscopic WBC (0-3) per hpf Ur Squamous Epith Cells (None-Few) per lpf Urine Bacteria (None-Few) per hpf Hyaline Casts (None-Few) per lpf Urine Yeast BMP 10/23/17 04:19 Sodium 137 Potassium 4.4 Chloride 97 L Carbon Dioxide 36 H BUN 19 Creatinine 0.44 L Glucose 74 Calcium 9.3 Urine 10/22/17 Range/Units 23:31 Urine Color Yellow (Yellow) Urine Clarity Cloudy A (Clear) Urine pH 6.0 (5.0-8.0) pH Units Ur Specific [place] 1.024 (1.010-1.025) Urine Protein Trace (Neg-Trace) mg/dL Urine Glucose (UA) Normal (Normal) mg/dL - Attending Attestation The patient was independently examined and her available reords and tests were reviewed. I agree with the Residents'S A&P.
[2017-10-23 00:16] LABS: Bilirubin,Urine Negative (Negative); Blood,Urine Negative (Negative); Clarity,Urine Cloudy (Clear); Color,Urine Yellow (Yellow); Glucose,Urine (UA) Normal (Normal); Ketones,Urine Negative (Negative); Leukocyte Esterase,Urine Moderate (Negative); Nitrite,Urine Negative (Negative); Protein,Urine Trace mg/dL (Neg-Trace); Specific Gravity,Urine 1.024 (1.010-1.025); Urobilinogen,Urine Normal (Normal)
[2017-10-23 00:17] LABS: Bacteria,Urine None Seen per hpf (None-Few); Hyaline Casts,Urine None Seen per lpf (None-Few); RBC,Urine 0-3 per hpf (0-3); Squamous Epithelial Cell,Urine Many per lpf (None-Few); WBC,Urine 50-100 per hpf (0-3)
[2017-10-23 04:46] LABS: Basophils % 0.2 %; Hemoglobin 8.7 g/dL (11.5-15.4)
[2017-10-23 04:47] LABS: Eosinophils # 0.1 K/mcL (0.0-0.6); Eosinophils % 0.7 %; Hematocrit 30.1 % (35.3-44.9); Immature Granulocytes % 0.6 % (0-4); Lymphocytes # 0.8 K/mcL (0.6-4.6); Lymphocytes % 9.9 %; Mean Corpuscular HGB Conc 28.9 g/dL (31.6-35.5); Mean Corpuscular Hemoglobin 26.9 pg (28.0-33.3); Mean Corpuscular Volume 93.2 fL (83.0-100.0); Mean Platelet Volume 9.2 fL (9.4-12.4); Monocytes # 0.9 K/mcL (0.0-1.3); Monocytes % 10.7 %; Platelet Count 247 K/mcL (140-400); Red Blood Count 3.23 M/mcL (3.82-4.97); Red Cell Distribution Width 18.9 % (11.5-14.5); Segmented Neutrophils % 77.9 %
[2017-10-23 04:53] LABS: Neutrophils # 6.5 K/mcL (1.6-8.9)
[2017-10-23 04:57] LABS: INR 1.4; Prothrombin Time 15.2 Seconds (9.4-12.1)
[2017-10-23 05:13] LABS: BUN/Creatinine Ratio 43 (6-26); Blood Urea Nitrogen 19 mg/dL (8-23); Calcium 9.3 mg/dL (8.6-10.3); Carbon Dioxide 36 mEq/L (23-29); Chloride 97 mEq/L (98-107); Glucose 74 mg/dL (70-105); Osmolality,Calculated 285 (280-300); Potassium 4.4 mEq/L (3.5-5.1); Sodium 137 mEq/L (136-145); eGFR For Non-African Americans > 60 (> 60)
[2017-10-23 05:14] LABS: Hypochromasia Present (Not Present); Platelet Estimate Normal (Normal); Toxic Granulation Present (Not Present)
[2017-10-23 05:15] LABS: Anisocytosis 1+ (Not Present)
[2017-10-23] MEDS: Budesonide/Formoterol 160/4.5 1 PUFF INH IH SCH ×2 (08:06→21:11)
[2017-10-23] MEDS: Insulin LISPRO 300 UNITS/3 ML VIAL SQ SCH ×4 (08:26→20:53)
[2017-10-23] MEDS: Gabapentin 300 MG CAPSULE PO SCH ×3 (08:37→20:53)
--- NOTE | 2017-10-23 13:01 | Internal Med Progress Note ---
Date of Encounter: 10/23/17 Time of Encounter: 10:45 - Assessment and plan (1) Anemia Current Visit: Yes Status: Chronic Assessment and plan: Hemoglobin is stable, 8.7 today. Appears to be chronic since February,. Had blood transfusion at [facility] 3 days ago. Patient with non-small cell left lung cancer, follows with [facility]. Last chemotherapy was September 17. Iron and % sat low. D/w oncology [employer]IL[employer]MAN, recommends continuing to monitor and watch Hgb. Continue to monitor Qualifiers: Anemia type: unspecified type Qualified Code(s): D64.9 - Anemia, unspecified (2) Collapse of left lung Current Visit: Yes Status: Acute Assessment and plan: Patient with left main stem endobronchial lesion is occluded the entire left lung. Chest x-ray on admission showed near completemedication of left hemothorax. This is unchanged since chest x-ray on 09/27/17. Continue home COPD meds, bronchodilators, O2 as needed. (3) DVT prophylaxis Current Visit: Yes Status: Acute Assessment and plan: Encourage ambulation. ROGER hose ordered. (4) Hypothyroidism Current Visit: Yes Status: Chronic Assessment and plan: Chronic. Continue home medications. Qualifiers: Hypothyroidism type: unspecified Qualified Code(s): E03.9 - Hypothyroidism , unspecified (5) Non-small cell cancer of left lung Current Visit: Yes Status: Chronic Assessment and plan: Patient follows with [facility]. Patient reports that her last chemotherapy treatment was September 17, she had a total of 4 treatments. Radiation therapy completed prior to chemotherapy. Continue to follow outpatient. (6) Type 2 diabetes mellitus Current Visit: Yes Status: Chronic Assessment and plan: Sliding scale insulin, Accu-Chek before meals and at bedtime, diabetic diet. Qualifiers: Diabetes mellitus complication status: without complication Diabetes mellitus fdc insulin use: without fdc use Qualified Code(s): E11.9 - Type 2 diabetes mellitus without complications (7) Urinary incontinence, nocturnal enuresis Current Visit: Yes Status: Acute Assessment and plan: Patient reports new onset urinary urgency with incontinence, as well as nocturnal enuresis. Patient reports that she does feel the urge to void and denies dysuria, hematuria. Urine does not indicate urinary tract infection. Urine was cloudy, moderate leukocyte esterase, 50-100 white cells and many squamous epithelial cells without bacteria. Patient may need to follow up outpatient with urology for evaluation (8) Weakness Current Visit: Yes Status: Acute Assessment and plan: Patient reports recent onset weakness, could be secondary to chronic disease, chemotherapy, radiation, anemia. Patient also is anemic and has required blood transfusions. PT/OT evaluations are ordered and pending. Continue to monitor patient for safety and for falls. - Time Spent With Patient less than 15 minutes - Subjective Interval history: Patient was seen and assessed at bedside at 10:45 AM. Family at bedside 2. All questions answered. Patient states that she is feeling well, states that she is fearful about going home due to weakness. She also reports new onset nocturnal enuresis and urgency. She denies abdominal pain, gary hematuria, fever or chills. She denies any headache or blurred vision, no dizziness. She denies chest pain or shortness of breath, wheezing or cough. Denies abdominal pain, nausea, vomiting, diarrhea. - Constitutional Vitals: Temp Pulse Resp BP Pulse Ox 97.3 F L 106 18 153/78 93 10/23/17 11:20 10/23/17 11:20 10/23/17 11:20 10/23/17 11:20 10/23/17 11:20 General appearance: Present: cooperative, A&O X 3, pleasant, no acute distress, answers questions appropriately - Head Head exam: Present: atraumatic, normal inspection, normocephalic - Eye Eye exam: Present: normal appearance, conjuntiva pink, sclera anicteric - Neck Neck exam general surgery: Present: supple, trachea midline. Absent: lymphadenopathy, tenderness - Respiratory Respiratory exam: Present: CTAB. Absent: accessory muscle use, chest wall tenderness, rales, rhonchi, wheezes - Cardiovascular Cardiovascular exam: Present: RRR, +S1, +S2. Absent: diastolic murmur, gallop, rubs, systolic murmur - GI/Abdominal GI/Abdominal exam: Present: normal bowel sounds, soft, no peritoneal signs. Absent: distended, hepatomegaly, tenderness - Extremities Exam Extremities exam: Present: normal capillary refill, normal inspection, warm, radial pulses palpable and symmetrical. Absent: calf tenderness, cyanotic, pedal edema, tenderness - Neurological Exam Neurological exam: Present: alert, oriented X3, no focal deficits, strengths equal and symetr throughout. Absent: facial droop, speech deficit - Skin Skin exam: Present: dry, intact, pallor, warm. Absent: rash Internal Medicine: Result - Labs CBC & Chem 7: 10/23/17 04:19 10/23/17 04:19 Labs: Short CBC 10/23/17 Range/Units 04:19 WBC 8.4 (4.3-11.1) K/mcL Hgb 8.7 L (11.5-15.4) g/dL Hct 30.1 L (35.3-44.9) % Plt Count 247 (140-400) K/mcL Neutrophils # 6.5 (1.6-8.9) K/mcL BMP 10/23/17 04:19 Sodium 137 Potassium 4.4 Chloride 97 L Carbon Dioxide 36 H BUN 19 Creatinine 0.44 L Glucose 74 Calcium 9.3 Urine 10/22/17 Range/Units 23:31 Urine Color Yellow (Yellow) Urine Clarity Cloudy A (Clear) Urine pH 6.0 (5.0-8.0) pH Units Ur Specific [place] 1.024 (1.010-1.025) Urine Protein Trace (Neg-Trace) mg/dL Urine Glucose (UA) Normal (Normal) mg/dL - ABG Interpretation ABG results: PT/INR, D-dimer PT 15.2 Seconds (9.4-12.1) H 10/23/17 04:19 Consult Discharge Plan - Plan Referrals: Purvi Rey [Primary Care Provider] -
--- NOTE | 2017-10-23 17:08 | Oncology Inp Consult Note ---
Date of Encounter: 10/23/17 Time of Encounter: 17:08 Assessment and Plan (1) Anemia Status: Chronic Assessment and plan: Hgb 8.7 this am, MCV normal, WBC and platelet count normal. Iron 21 with 11% saturation but ferritin sufficient at 381, no need for iron at this time. Lingering anemia likely secondary to recent carbo/taxol last received 09/17. Anemia has been present with hgb around 8-9 since chemotherapy initiation. If anemia does not begin to improve with continued monitoring on outpatient basis, may continue to assess further etiology. She denies abdominal pain, hematochezia, melena, nausea, vomiting, diarrhea, hematuria or hematemesis. CXR reveals near complete opacification of left hemithorax, unchanged since CXR done 09/27/17 during hospitalization. She is breathing comfortably and planned to continue home COPD medications and O2. Afebrile, no leukocytosis. Dr. Duran reviewed CXR results at recent follow up. She is planned to have restaging chest CT with follow up with Dr. Duran middle of October after finishing cycle 4. I will arrange for close follow up with Dr. Duran following this hospitalization. Qualifiers: Anemia type: unspecified type Qualified Code(s): D64.9 - Anemia, unspecified - Data of Consult Patient: known to practice within the last 3 years Consult date: 10/23/17 Requesting Physician: Bonnie De CNP Primary Care Provider: Purvi Rey - Consult Narrative Reason for consult: Anemia, squamous cell carcinoma of the lung History of present illness: Ms. Thomas is a 77 year old female with oncologic history significant for squamous cell carcinoma of the lung status post bronchoscopy biopsy of the completely obstructing left upper lobe mass February 2017, large effusion likely malignant but thoracentesis fluid negative for malignancy from cytology report. Left lung mass and left hilar adenopathy, by PET N7Y---xjci uptake--rpt bronch/ FNA of subcarinal LN--no malignancy. s/p (hypofractionated intensity) definitive RT, Adjuvant chemotherapy-s/p carbo /taxol cycle 4 with neulasta-- last administered 09/17/17. She was scheduled for restaging scans and planned to follow up with Dr. Duran following. Patient presented to ER for continued weakness,and reported episodes of hypotension and tachycardia. Pt herself expresses concern about weakness and c/ o cough productive of yellow sputum. Oncology consulted per family request to discuss anemia. Past Med Surg Social Fam HX - Past Medical History Medical history: cancer, diabetes, RA, other Psychiatric history: no psych history - Past Surgical History Surgical History: cholecystectomy, hysterectomy - Social History Smoking Status: Former smoker Smokeless Tobacco Status: No Alcohol use: none Drug use: none - Family History Mother Family Member Ethnicity: Non- Living Status: Hx Family Cardiac Disorders: No Hx Family Respiratory Disorders: No Hx Family Cancer: Yes Hx Family GI Disorders: No Hx Family Endocrine Disorder: No Father Family Member Ethnicity: Non- Living Status: Hx Family Cardiac Disorders: Yes (HD) Hx Family Cancer: Yes (Prostate cancer) Brother Family Member Ethnicity: Non- Living Status: Still Living Hx Family Cardiac Disorders: No Hx Family Respiratory Disorders: No Hx Family Cancer: Yes (skin, bone) Hx Family GI Disorders: No Hx Family Endocrine Disorder: No Hx Family Neuromuscular Disorders: No Hx Family Neurologic Disorders: No Hx Family HEENT Disorders: No Hx Family Autoimmune Disorders: No Sister Family Member Ethnicity: Non- Living Status: Still Living Hx Family Cancer: Yes (Breast) Medications and Allergies Allopurinol [Zyloprim] 300 mg PO BID 03/15/17 [History] Cod Liver Oil 1 each PO DAILY 03/15/17 [History] Gabapentin [Neurontin] 600 mg PO TID 03/15/17 [History] Garlic 1,000 mg PO DAILY 03/15/17 [History] Levothyroxine [Synthroid] 88 mcg PO 0630 03/15/17 [History] Meloxicam [Mobic] 15 mg PO DAILY 03/15/17 [History] Albuterol Sulfate [Albuterol Inhaler] 1 puff IH Q4HR PRN #1 hfa.aer.ad 03/22/17 [Rx] Budesonide/Formoterol 160/4.5 [Symbicort 160/4.5] 2 puff IH BIDR #1 inh [Rx] glyBURIDE [GlyBURIDE] 5 mg PO BID 04/27/17 [History] Docusate Sodium [Colace] 100 mg PO BID PRN 06/18/17 [History] Montelukast [Singulair] 10 mg PO DAILY 09/28/17 [History] Ipratropium/Albuterol Neb [Duoneb] 3 ml IH Q6H PRN 10/12/17 [History] Guaifenesin [Mucinex] 600 mg PO Q12H #30 tab.er.12h 10/15/17 [Rx] 3 Allergy/AdvReac Type Severity Reaction Status Date / Time metformin Allergy Hives Verified 10/22/17 11:24 Penicillins [PCN] Allergy Anaphylaxis Verified 10/22/17 11:24 Constitutional: Present: fatigue, weakness. Absent: chills, fever(s), frequent falls, weight loss Eyes: Absent: change in vision Nose, mouth and throat: Absent: mouth lesions Cardiovascular: Absent: chest pain, irregular heart rhythm, palpitations Respiratory: Absent: cough, dyspnea Gastrointestinal: Absent: change in bowel habits, hematemesis, hematochezia, melena, nausea, vomiting Additional comments: nocturnal enuresis, denies dysuria or hematuria Musculoskeletal: Present: muscle weakness. Absent: numbness, tingling Integumentary: Absent: wounds Neurological: Absent: dizziness, focal weakness, memory loss, numbness, tingling Psychiatric: Absent: change in appetite Hematologic/Lymphatic: Absent: easy bleeding, lymphadenopathy Oncology - Exam - Constitutional Vitals: Temp Pulse Resp BP Pulse Ox 97.8 F 88 16 125/75 96 10/23/17 16:36 10/23/17 16:36 10/23/17 16:36 10/23/17 16:36 10/23/17 16:36 General appearance: cooperative, no acute distress, no febrile - Head Head exam: Present: atraumatic - Respiratory Respiratory exam: Present: CTAB. Absent: respiratory distress - Cardiovascular Cardiovascular exam: Present: RRR, +S1, +S2 - GI/Abdominal GI/Abdominal exam: Present: normal bowel sounds, soft. Absent: tenderness - Extremities Exam Extremities exam: Absent: calf tenderness - Neurological Exam Neurological exam: Present: alert, oriented X3, no focal deficits, strengths equal and symetr throughout - Psychiatric Psychiatric exam: Present: normal affect, normal mood - Skin Skin exam: Present: pallor, warm Oncology - Results Labs: Short CBC 10/23/17 Range/Units 04:19 WBC 8.4 (4.3-11.1) K/mcL Hgb 8.7 L (11.5-15.4) g/dL Hct 30.1 L (35.3-44.9) % Plt Count 247 (140-400) K/mcL Neutrophils # 6.5 (1.6-8.9) K/mcL BMP 10/23/17 04:19 Sodium 137 Potassium 4.4 Chloride 97 L Carbon Dioxide 36 H BUN 19 Creatinine 0.44 L Glucose 74 Calcium 9.3 Urine 10/22/17 Range/Units 23:31 Urine Color Yellow (Yellow) Urine Clarity Cloudy A (Clear) Urine pH 6.0 (5.0-8.0) pH Units Ur Specific [place] 1.024 (1.010-1.025) Urine Protein Trace (Neg-Trace) mg/dL Urine Glucose (UA) Normal (Normal) mg/dL Consult Discharge Plan - Plan Referrals: Purvi Rey [Primary Care Provider] -
--- NOTE | 2017-10-23 20:12 | Electrocardiograph Report ---
[place] [email or web address] Test Date: 2017-10-22 Pat Name: Fernanda Thomas Department: 102 Room: 3B31 Gender: F Parboiler: Solange : 1940 Requested By: Christian Morris Order Number: [id number] Reading MD: Raymon Willson DO Measurements Intervals [place] Rate: 85 P: 41 SC: 163 QRS: 12 QRSD: 88 T: 74 QT: 333 QTc: 375 Interpretive Statements SINUS RHYTHM NONSPECIFIC T-WAVE ABNORMALITY WARNING: DATA QUALITY MAY AFFECT INTERPRETATION Electronically Signed On 10-23-2017 20:11:20 EST by Raymon Willson DO
[2017-10-24] MEDS: Acetaminophen 325 MG TABLET PO PRN (04:01)
[2017-10-24 06:50] LABS: Basophils % 0.2 %; Eosinophils # 0.1 K/mcL (0.0-0.6); Eosinophils % 0.8 %; Hematocrit 27.9 % (35.3-44.9); Hemoglobin 8.1 g/dL (11.5-15.4); Immature Granulocytes % 0.5 % (0-4); Lymphocytes % 11.2 %; Mean Corpuscular Hemoglobin 27.3 pg (28.0-33.3); Mean Corpuscular Volume 93.9 fL (83.0-100.0); Monocytes # 0.9 K/mcL (0.0-1.3); Monocytes % 10.8 %; Neutrophils # 6.5 K/mcL (1.6-8.9); Platelet Count 261 K/mcL (140-400); Red Blood Count 2.97 M/mcL (3.82-4.97); Red Cell Distribution Width 18.7 % (11.5-14.5); Segmented Neutrophils % 76.5 %
[2017-10-24 08:14] LABS: Hemoglobin 8.7 g/dL (11.5-15.4)
[2017-10-24] MEDS: Gabapentin 300 MG CAPSULE PO SCH ×3 (08:27→20:08)
[2017-10-24] MEDS: Insulin LISPRO 300 UNITS/3 ML VIAL SQ SCH ×4 (08:27→21:14)
[2017-10-24] MEDS: Budesonide/Formoterol 160/4.5 1 PUFF INH IH SCH ×2 (08:34→21:04)
[2017-10-24 14:04] LABS: Hematocrit 30.3 % (35.3-44.9); Hemoglobin 8.6 g/dL (11.5-15.4)
--- NOTE | 2017-10-24 17:28 | Oncology Inp Progress Note ---
Date of Encounter: 10/24/17 Time of Encounter: 14:00 (1) Anemia Current Visit: Yes Status: Chronic Assessment and plan: Hgb stable at 8.6, MCV normal, WBC and platelet count normal. Iron 21 with 11% saturation but ferritin sufficient at 381, no need for iron at this time. Lingering anemia likely secondary to recent carbo/taxol last received 09/17. Anemia has been present with hgb around 8-9 since chemotherapy initiation. Continue with plan to continue to monitor anemia on outpatient basis, if anemia does not begin to improve with continued monitoring, may continue to assess further etiology. No acute anemia noted at this time. She denies abdominal pain, hematochezia, melena, nausea, vomiting, diarrhea, hematuria or hematemesis. I have ordered B12, folate, LDH and haptoglobin studies, results pending. For patients urinary complaints as detailed in HPI will check UA. CXR reveals near complete opacification of left hemithorax, unchanged since CXR done 09/27/17 during hospitalization. She is breathing comfortably and planned to continue home COPD medications and O2. Continue with plan to have restaging chest CT with follow up with Dr. Duran middle of October after finishing cycle 4.I have given patient a close follow up appointment with Dr. Duran next week. Per patients consent, I did discuss the above plan with patients daughter Hafsa via telephone. She voiced concern over patients transient hypotensive episodes which she has experienced while at home. BP has been stable during admission, BP meds have previously been discontinued. Will continue to monitor BP with continued outpatient monitoring. Her history of hypotensive episodes with associated fatigue may be secondary to anemia for which she has required blood transfusions for in the past and just prior to her admission. We expect her anemia to recover following her chemotherapy treatments. Patients daughter also voices concern over her mothers mental status, states she experiences confusion and hallucinations at home. She has been neurologically intact since her admission, will assess pending UA results first. Qualifiers: Anemia type: unspecified type Qualified Code(s): D64.9 - Anemia, unspecified Oncology: Subj Interval history: Ms. Fernanda Thomas reports that she is now experiencing urinary frequency, urgency and dysuria. She denies hematuria, fever/chills or CVA tenderness. Otherwise she is feeling well and has no other physical complaints. She denies SOB above baseline, chest pain, H/A, dizziness, nausea, vomiting or diarrhea. - Constitutional Vitals: Vital Signs Temp Pulse Resp BP Pulse Ox 10/24/17 16:03 97.6 F 88 16 122/78 90 10/24/17 11:26 97.8 F 93 16 107/69 96 10/24/17 08:36 17 96 10/24/17 08:27 96 10/24/17 07:42 98.5 F 84 17 118/72 96 10/24/17 04:00 98.8 F 100 16 114/68 94 10/23/17 23:33 98.6 F 92 16 122/69 95 10/23/17 21:11 17 98 10/23/17 20:12 98.8 F 93 16 134/74 95 Intake and Output 10/24/17 10/24/17 10/24/17 07:59 15:59 23:59 Intake Total 240 / 240 Output Total 350 / 350 Balance -110 / -110 Intake: Oral 240 / 240 Output: Urine 350 / 350 Other: Meal Breakfast Percent of Meal Consumed 100% # Voids 1 Weight 88 kg Blood Glucose* 274 121 Patient Weight 10/24/17 23:59 Weight 88 kg General appearance: cooperative, no acute distress, no febrile - Head Head exam: Present: atraumatic - Respiratory Respiratory exam: Present: decreased breath sounds, CTAB. Absent: respiratory distress - Cardiovascular Cardiovascular exam: Present: RRR, +S1, +S2 - GI/Abdominal GI/Abdominal exam: Present: normal bowel sounds, soft. Absent: tenderness - Extremities Exam Extremities exam: Present: normal inspection. Absent: calf tenderness - Back Exam Back exam: Absent: CVA tenderness (L), CVA tenderness (R) - Neurological Exam Neurological exam: Present: alert, oriented X3, no focal deficits, strengths equal and symetr throughout - Psychiatric Psychiatric exam: Present: normal affect, normal mood - Skin Skin exam: Present: pallor, warm Oncology: Obj Data - Labs CBC & Chem 7: 10/24/17 13:47 10/23/17 04:19 - ABG Interpretation ABG results: PT/INR, D-dimer PT 15.2 Seconds (9.4-12.1) H 10/23/17 04:19 Consult Discharge Plan - Plan Referrals: Purvi Rey [Primary Care Provider] -
[2017-10-24 18:50] LABS: Bilirubin,Urine Negative (Negative); Blood,Urine Negative (Negative); Clarity,Urine Clear (Clear); Color,Urine Yellow (Yellow); Glucose,Urine (UA) Normal (Normal); Ketones,Urine Negative (Negative); Leukocyte Esterase,Urine Small (Negative); Nitrite,Urine Negative (Negative); PH,Urine 6.5 pH Units (5.0-8.0); Protein,Urine Negative (Neg-Trace); Specific Gravity,Urine 1.007 (1.010-1.025); Urobilinogen,Urine Normal (Normal)
[2017-10-24 18:51] LABS: Bacteria,Urine None Seen per hpf (None-Few); Hyaline Casts,Urine None Seen per lpf (None-Few); RBC,Urine 0-3 per hpf (0-3); Squamous Epithelial Cell,Urine Many per lpf (None-Few); WBC,Urine 15-30 per hpf (0-3)
--- NOTE | 2017-10-24 18:59 | Internal Med Progress Note ---
Date of Encounter: 10/24/17 Time of Encounter: 09:15 - Assessment and plan (1) Anemia Current Visit: Yes Status: Chronic Assessment and plan: Hemoglobin is stable, 8.7 today. Hemoglobin was drawn every 6 hours today, has increased since initial draw this morning. Currently 8.7. Appears to be chronic since February,. Had blood transfusion at [facility] 3 days ago. Patient with non-small cell left lung cancer, follows with [facility]. Last chemotherapy was September 17. Iron and % sat low. 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 Oncology has seen patient and is following. Qualifiers: Anemia type: unspecified type Qualified Code(s): D64.9 - Anemia, unspecified (2) Collapse of left lung Current Visit: Yes Status: Acute Assessment and plan: Patient with left main stem endobronchial lesion is occluded the entire left lung. Chest x-ray on admission showed near completemedication of left hemothorax. This is unchanged since chest x-ray on 09/27/17. Continue home COPD meds, bronchodilators, O2 as needed. The patient follows with cancer Center. They are on board and following for this visit. I appreciate their recommendation consultation. (3) Hypothyroidism Current Visit: Yes Status: Chronic Qualifiers: Hypothyroidism type: unspecified Qualified Code(s): E03.9 - Hypothyroidism , unspecified (4) Non-small cell cancer of left lung Current Visit: Yes Status: Chronic Assessment and plan: Patient follows with [facility]. Patient reports that her last chemotherapy treatment was September 17, she had a total of 4 treatments. Radiation therapy completed prior to chemotherapy. Continue to follow outpatient. Oncology has seen patient in the hospital. I appreciate their recommendation consultation. (5) Type 2 diabetes mellitus Current Visit: Yes Status: Chronic Assessment and plan: Sliding scale insulin, Accu-Chek before meals and at bedtime, diabetic diet. Qualifiers: Diabetes mellitus complication status: without complication Diabetes mellitus joint terminal attack controller insulin use: without usp use Qualified Code(s): E11.9 - Type 2 diabetes mellitus without complications (6) Urinary incontinence, nocturnal enuresis Current Visit: No Status: Acute Assessment and plan: Patient reports new onset urinary urgency with incontinence, as well as nocturnal enuresis. Patient reports that she does feel the urge to void and denies dysuria, hematuria. Urine does not indicate urinary tract infection. Urine was cloudy, moderate leukocyte esterase, 50-100 white cells and many squamous epithelial cells without bacteria. Patient may need to follow up outpatient with urology for evaluation Oncology has ordered repeat urine today to. It is not resulted at this time. (7) Weakness Current Visit: Yes Status: Acute Assessment and plan: Patient reports recent onset weakness, most likely secondary to chemotherapy, radiation, progressive disease, as well as physical deconditioning. Patient is also anemic and has required blood transfusions recently. Physical therapy and occupational therapy have recommended home health with PT. Continue discuss with family member. Continue to monitor for safety and falls. (8) DVT prophylaxis Current Visit: Yes Status: Acute Assessment and plan: Encourage ambulation. ROGER cohen ordered. - Time Spent With Patient less than 15 minutes - Subjective Interval history: Patient was seen and assessed at bedside at 0915 AM. Patient was alone, no family in the room. Patient states that she is feeling well again today, states that she is fearful about going home due to weakness. She denies abdominal pain, gary hematuria, fever or chills. She denies any headache or blurred vision, no dizziness. She denies chest pain or shortness of breath, wheezing or cough. Denies abdominal pain, nausea, vomiting, diarrhea. Patient was agreeable to going to group home, social media intern has discussed with family that she will have to private pay or apply for Medicaid to go to group home. Patient's daughter is not agreeable to either scenario. Patient will stay here for continued workup for nocturnal enuresis and urgency. Patient will most likely discharge tomorrow - Constitutional Vitals: Temp Pulse Resp BP Pulse Ox 98.5 F 89 16 122/75 90 10/24/17 18:47 10/24/17 18:47 10/24/17 18:47 10/24/17 18:47 10/24/17 16:03 General appearance: Present: cooperative, A&O X 3, pleasant, no acute distress, answers questions appropriately - Head Head exam: Present: atraumatic, normal inspection, normocephalic - Eye Eye exam: Present: conjuntiva pink, sclera anicteric - Neck Neck exam general surgery: Present: supple, trachea midline. Absent: lymphadenopathy, tenderness - Respiratory Respiratory exam: Present: CTAB. Absent: accessory muscle use, rales, rhonchi, wheezes - Cardiovascular Cardiovascular exam: Present: RRR, +S1, +S2. Absent: diastolic murmur, gallop, rubs, systolic murmur - GI/Abdominal GI/Abdominal exam: Present: normal bowel sounds, soft. Absent: hepatomegaly, tenderness - Extremities Exam Extremities exam: Present: normal capillary refill, normal inspection, warm, radial pulses palpable and symmetrical. Absent: calf tenderness, cyanotic, pedal edema, tenderness - Neurological Exam Neurological exam: Present: alert, oriented X3, no focal deficits. Absent: facial droop, speech deficit - Skin Skin exam: Present: dry, intact, normal color, warm. Absent: rash Internal Medicine: Result - Labs CBC & Chem 7: 10/24/17 13:47 10/23/17 04:19 Labs: Short CBC 10/24/17 10/24/17 10/24/17 Range/Units 06:20 07:54 13:47 WBC 8.5 (4.3-11.1) K/mcL Hgb 8.1 L 8.7 L 8.6 L (11.5-15.4) g/dL Hct 27.9 L 31.0 L 30.3 L (35.3-44.9) % Plt Count 261 (140-400) K/mcL Neutrophils # 6.5 (1.6-8.9) K/mcL - ABG Interpretation ABG results: PT/INR, D-dimer PT 15.2 Seconds (9.4-12.1) H 10/23/17 04:19 Consult Discharge Plan - Plan Referrals: Purvi Rey [Primary Care Provider] -
[2017-10-24 20:09] LABS: Hematocrit 28.5 % (35.3-44.9)
[2017-10-24 20:33] LABS: Folate 18.9 ng/mL (3.0-16.0)
[2017-10-25] MEDS: Acetaminophen 325 MG TABLET PO PRN ×2 (02:38→12:45)
[2017-10-25] MEDS: Gabapentin 300 MG CAPSULE PO SCH ×2 (07:48→15:56)
[2017-10-25] MEDS: Insulin LISPRO 300 UNITS/3 ML VIAL SQ SCH ×3 (07:48→16:44)
[2017-10-25] MEDS: Budesonide/Formoterol 160/4.5 1 PUFF INH IH SCH (08:20)
[2017-10-25 09:06] LABS: Hematocrit 30.2 % (35.3-44.9); Hemoglobin 8.5 g/dL (11.5-15.4)
[2017-10-25 15:27] VITALS: BP 113/68
--- NOTE | 2017-10-25 17:16 | Discharge Summary ---
- NOTES TO OUTPATIENT PROVIDER Notes to Outpatient Provider: Patient will need to follow-up with oncology and primary care for anemia. Recommended follow-up with urology after discharge for new onset incontinence and nocturnal enuresis. Orders not resulted at time of discharge: Pending orders 10/24/17 19:44 Haptoglobin Routine Date of Encounter: 10/25/17 Time of Encounter: 13:10 - Discharge Diagnosis (1) Anemia Priority: Secondary Status: Chronic Comments: Stable. 8.5 today. Patient had blood transfusion at [facility] 3 days prior to admission. Patient follows with cancer Center. Last chemotherapy was September 17. Oncology has been following and do not recommend any further treatment other than watchful waiting and follow up after discharge. Iron and percent sat on low, oncology does not recommend iron transfusion or by mouth supplementation at this time due to recent chemotherapy Deuce's inability to use it properly. Follow-up with oncology as scheduled. Qualifiers: Anemia type: unspecified type Qualified Code(s): D64.9 - Anemia, unspecified (2) Collapse of left lung Priority: Secondary Status: Acute Comments: Patient has left mainstem antebrachial lesion that has occluded the entire left lung. Imaging remains unchanged since chest x-ray on September 27. Patient's lungs are clear diminished throughout, more diminished on left than right. There is no wheezing or rhonchi, no respiratory distress. Patient wears supplemental oxygen at home, continue after discharge. Continue home COPD medications, bronchodilators and oxygen. Follow with oncology closely. (3) Hypothyroidism Priority: Secondary Status: Chronic Comments: Chronic. Continue home medications. Qualifiers: Hypothyroidism type: unspecified Qualified Code(s): E03.9 - Hypothyroidism , unspecified (4) Non-small cell cancer of left lung Priority: Secondary Status: Chronic (5) Type 2 diabetes mellitus Priority: Secondary Status: Chronic Comments: Chronic. Continue home medications and Accu-Chek regimen at home. Qualifiers: Diabetes mellitus complication status: without complication Diabetes mellitus buttermaker helper insulin use: without buttermaker helper use Qualified Code(s): E11.9 - Type 2 diabetes mellitus without complications (6) Urinary incontinence, nocturnal enuresis Priority: Secondary Status: Acute Comments: Patient reports new onset urinary urgency with incontinence, as well as nocturnal enuresis. Patient reports that she does feel the urge to void and denies dysuria, hematuria. Patient had urine on arrival, oncology ordered repeat UA, both were not indicative urinary tract infection. Patient will need to follow up outpatient with urology for evaluation. (7) Weakness Priority: Secondary Status: Acute Comments: Patient reports recent onset weakness, most likely secondary to chemotherapy, radiation, progressive disease, as well as physical deconditioning. Patient is also anemic and has required blood transfusions recently. Physical therapy and occupational therapy have recommended home health with PT. (8) DVT prophylaxis Priority: Secondary Status: Acute Comments: ROGER hose were ordered. Patient was ambulatory in the room. Hospital course: Ms. Thomas is a 77 year old female with current history of small cell lung cancer with lesion that has occluded entire left lung. Pt presented to the emergency department with complaint of weakness. She has had multiple blood transfusions, most recently 3 days prior to arrival. Patient also has reported new onset urinary incontinence and nocturnal enuresis and will need to follow up with urology after discharge. Oncology has been following through the visit. They will follow up closely after discharge for cancer and anemia. Pt is stable and appropriate for discharge back home. Discharge discussed with: patient - Time Spent with Patient Total time spent providing and/or coordinating discharge services: Less than 30 minutes - Discharge Medications Home Medications: Allopurinol [Zyloprim] 300 mg PO BID 03/15/17 [History] Cod Liver Oil 1 each PO DAILY 03/15/17 [History] Gabapentin [Neurontin] 600 mg PO TID 03/15/17 [History] Garlic 1,000 mg PO DAILY 03/15/17 [History] Levothyroxine [Synthroid] 88 mcg PO 0630 03/15/17 [History] Meloxicam [Mobic] 15 mg PO DAILY 03/15/17 [History] Albuterol Sulfate [Albuterol Inhaler] 1 puff IH Q4HR PRN #1 hfa.aer.[id number] 03/22/17 [Rx] Budesonide/Formoterol 160/4.5 [Symbicort 160/4.5] 2 puff IH BIDR #1 inh [Rx] glyBURIDE [GlyBURIDE] 5 mg PO BID 04/27/17 [History] Docusate Sodium [Colace] 100 mg PO BID PRN 06/18/17 [History] Montelukast [Singulair] 10 mg PO DAILY 09/28/17 [History] Ipratropium/Albuterol Neb [Duoneb] 3 ml IH Q6H PRN 10/12/17 [History] Guaifenesin [Mucinex] 600 mg PO Q12H #30 tab.er.12h 10/15/17 [Rx] Allergies/Adverse Reactions: 3 Allergy/AdvReac Type Severity Reaction Status Date / Time metformin Allergy Hives Verified 10/22/17 11:24 Penicillins [PCN] Allergy Anaphylaxis Verified 10/22/17 11:24 Date of admission: 10/22/17 18:38 Primary care physician: Purvi Rey Consults: 10/22/17 22:26 Consult to Occupational Therapy [CONS] Routine Comment: Evaluate, develop and implement POC Reason for Consult: weakness, h/o lung cancer Consult to Physical Therapy [CONS] Routine Comment: Evaluate, develop and implement POC Reason for Consult: weakness, h/o lung cancer Consult to Peer Specialist [CONS] Routine Reason for SW Consult: Family concerned that pt lives alone and they are considering placement to SNF/ECF Discharging clinician: Brittany Fontaine Anticipated date of discharge: 10/25/17 - Constitutional Vitals: Temp Pulse Resp BP Pulse Ox 98.1 F 96 18 113/68 93 10/25/17 15:25 10/25/17 15:25 10/25/17 15:25 10/25/17 15:25 10/25/17 15:25 General appearance: Present: cooperative, A&O X 3, pleasant, no acute distress, obese, answers questions appropriately - Head Head exam: Present: atraumatic, normal inspection, normocephalic - Eye Eye exam: Present: normal appearance, conjuntiva pink, sclera anicteric - Neck Neck exam general surgery: Present: supple, trachea midline. Absent: lymphadenopathy - Respiratory Respiratory exam: Present: decreased breath sounds, CTAB. Absent: accessory muscle use, chest wall tenderness, rales, respiratory distress, rhonchi, wheezes - Cardiovascular Cardiovascular exam: Present: RRR, +S1, +S2. Absent: diastolic murmur, gallop, rubs, systolic murmur - GI/Abdominal GI/Abdominal exam: Present: normal bowel sounds, soft, no peritoneal signs. Absent: distended, hepatomegaly, tenderness - Extremities Exam Extremities exam: Present: normal capillary refill, normal inspection, warm, radial pulses palpable and symmetrical. Absent: calf tenderness, cyanotic, pedal edema, tenderness - Neurological Exam Neurological exam: Present: alert, oriented X3, no focal deficits. Absent: facial droop, speech deficit - Skin Skin exam: Present: dry, intact, warm. Absent: rash - Patient Status Disposition: Home, Self-Care Condition: Fair Functional capacity at discharge: wheelchair bound Overall status at discharge: patient is back to baseline - Discharge Instructions Instructions: Weakness (GEN) Follow Up With: Purvi Rey [Primary Care Provider] - Additional Instructions: Follow-up appointments: If there is not an appointment listed below, please call your physician and schedule a follow-up appointment. If you have congestive heart failure and your symptoms return, make an appointment with your physician. Medication List: Carry an up to date list of medications you are taking at all time. We have given you an updated medication list including any new medications that you have been prescribed. Please provide that list to your primary provider Symptoms: If your condition changes or you experience any of the following symptoms, notify your physician immediately: Unusual or worsening pain, fever, persistent nausea and vomiting, bleeding, increase in swelling (especially in your legs), sudden weight gain, extreme dizziness, chest pain, increased drainage or redness from a wound or incision. Go to the emergency department if you experience a problem with breathing. Weights: If you have a history of swelling or shortness of breath, weigh yourself daily and notify your physician if you have a weight gain of two or more pounds in one day or 5 or more pounds in a week. If you experience any of the warning signs for stroke: Sudden numbness or weakness of the face, arm or leg; especially on one side of the body, sudden confusion, trouble speaking or understanding, sudden trouble seeing in one or both eyes, sudden trouble walking, dizziness, loss of balance or coordination, sudden sever headache with no cause; Call 911 or go to the emergency room. Stroke is a medical emergency. Some risk factors for stroke: Age, cigarette smoking, diabetes, excessive alcohol consumption, family history , high blood pressure, overweight, physical inactivity, prior stroke, heart attack, diagnosis of carotid artery stenosis or other artery disease. If you smoke, STOP: Smoking or tobacco use significantly increases your risk of heart and lung disease. Your chance of disease greatly increases if you continue to smoke. For more information, call the [place] tobacco quit line for smoking cessation 8 QUIT-NOW ( ) - Diet and Activity Activity: as per physical therapy Diet: diabetic diet, low fat, low cholesterol
== END 2017-10-25 19:28 | disposition home or self-care (01) ==
LOC: EMEROO 11:19 → 3BNU 11:19
PROVIDERS: ADMIT Family Medicine; ATTEND Registered Nurse